=== PATIENT | male | born 1960 | race Caucasian/White ===

== ENCOUNTER 2019-03-15 16:34 | Emergency (ER) | payer MEDICAID, SELFPAY ==
[2019-03-15 16:36] VITALS: BP 156/97; PULSE 63; RESP 16; TEMP 36.3; O2SAT 96; BMI 34.4
--- NOTE | 2019-03-15 16:57 | US_ITS ---
STUDY: SCROTUM ULTRASOUND REASON FOR EXAM: Male, 58 years old. Left scrotal pain TECHNIQUE: Ultrasound evaluation of the scrotum was performed with color Doppler and static hawley-scale imaging. COMPARISON: None. FINDINGS: RIGHT TESTICLE INTRATESTICULAR: There is a normal size of the right testicle. The right testicle measures 3.9 x 2.4 x 1.8 cm. There is a homogenous echotexture. There is normal arterial and normal venous vascularity. There is no demonstrated right testicular mass or cyst. EXTRATESTICULAR: The epididymis is normal in size. The epididymis head measures 1.5 x 1.3 x 0.5 cm. There is normal vascularity of the epididymis. There is no demonstrated epididymal cystic structure. There is no demonstrated hydrocele. There is no demonstrated varicocele. There is no demonstrated extratesticular mass or cyst. LEFT TESTICLE INTRATESTICULAR: There is a normal size of the left testicle. The left testicle measures 4 x 2 x 2.2 cm. There is a homogenous echotexture. There is normal arterial and normal venous vascularity. There is no demonstrated left testicular mass or cyst. EXTRATESTICULAR: The epididymis is normal in size. The epididymis head measures 1.1 x 0.8 x 0.5 cm. There is normal vascularity of the epididymis. There is no demonstrated epididymal cystic structure. There is no demonstrated hydrocele. Small Valsalva induced varicocele demonstrated.. There is also herniation of adipose tissue within the left scrotum upon both a Valsalva maneuver and coughing. There is no demonstrated extratesticular mass or cyst. US/Testicular with Arterial Flow IMPRESSION: No evidence for testicular mass or torsion. Small Valsalva induced varicocele in the left scrotum in association with apparent herniation of adipose tissue. Clinical correlation recommended Electronically Signed: Carlos Agee MD at 18:08 EDT , Service support ,
--- NOTE | 2019-03-15 16:57 | CT_ITS ---
STUDY: CT ABDOMEN AND PELVIS WITHOUT CONTRAST REASON FOR EXAM: Male, 58 years old. Chronic left scrotal pain RADIATION DOSAGE (If Supplied By Facility): CTDIvol = ( 14.135 ) mGy, DLP = ( 1072.57 ) mGycm TECHNIQUE: Transaxial images were obtained from the dome of the diaphragm to the symphysis pubis without oral contrast, and without intravenous contrast. Sagittal and coronal images were reconstructed. Individualized dose optimization techniques were used for this CT. COMPARISON: None. FINDINGS: The visualized lung bases are unremarkable. Heart is enlarged and there is mild coronary artery calcification. Normal liver. Status post cholecystectomy.. Normal spleen. Normal pancreas. Normal bilateral adrenal glands. Normal right kidney. Normal left kidney. Normal visualized stomach. Normal small intestine. Normal colon. Postop change status post appendectomy. Minor atherosclerotic changes of the aorta without evidence for aneurysm.. Normal inferior vena cava. Normal retroperitoneum. Normal urinary bladder. Small bilateral fat-containing inguinal hernias. Lumbar spine demonstrates mild spondylosis. CT/Abdomen/Pelvis without Cont IMPRESSION: No acute abnormalities status post cholecystectomy and appendectomy. No evidence for hydronephrosis or ureteral calculus Electronically Signed: Carlos Agee MD at 17:35 EDT , Service support ,
--- NOTE | 2019-03-15 17:02 | ED.DCSUM_ITS ---
- ER Visit Summary Date of Service: 03/15/19 Chief Complaint: Left testicular pain History of Present Illness: The patient is a 58 M presenting with left testicular pain. He states that this has been ongoing for the past 2 to 3 months. He states that he noticed his left testicle is higher riding than norm al. This has been ongoing for the past 2 to 3 months. He has had intermittent pain. He denies injury. Denies rash, discharge, concern for STDs. Denies other complaints. Physical Examination: Vitals are stable. Patient is afebrile. Alert no acute distress. HEENT exam is unremarkable. Neck is supple. Lungs are clear and equal bilaterally. Heart is regular rate and rhythm. Abdomen is soft nontender nondistended. No guarding or rebound : Mild left testicular tenderness, no rash, no discharge Extremities are unremarkable. Skin is warm and dry. Remainder of exam is unremarkable. Emergency Department Course and Treatment: CT abdomen pelvis shows no acute abnormalities status post cholecystectomy and appendectomy. No evidence for hydronephrosis or ureteral calculus. Testicular ultrasound shows no evidence for testicular mass or torsion. Small Valsalva induced varicocele in the left scrotum in association with apparent herniation of adipose tissue. Discussed with Dr. Zimmer. Patient will follow-up in the office. Advised to return to ED for worsening complaints. Disposition: Discharge home Impression: Left testicular pain, varicocele This note was generated with [employer] dictation software. It may contain incorrect words, spelling, and punctuation that were not noted in review of the chart prior to signing ED Disposition - Plan for ED Patient: Referrals: Kobi Alvarado MD [Primary Care Provider] -
[2019-03-15 18:58] VITALS: BP 154/97; PULSE 65; RESP 18; O2SAT 95
--- NOTE | 2019-03-15 19:21 | ED.DEP ---
ED Disposition - Plan for ED Patient: Instructions: Varicocele Referrals: Kobi Alvarado MD [Primary Care Provider] - Rob Zimmer MD [STAFF PHYSICIAN] -
== END 2019-03-15 19:32 | disposition home or self-care (01) ==
LOC: ED 17:39
PROVIDERS: Emergency Provider Emergency Medicine; Family Provider Family Medicine; PCP Family Medicine
DX: I86.1 Scrotal varices (principal); Z79.899 Other long term (current) drug therapy; Z90.49 Acquired absence of other specified parts of digestive tract
CPT/HCPCS: 74176; 76870; 93976; 99282

== ENCOUNTER 2022-06-01 03:55 | Emergency (ER) | payer MEDICAID, SELFPAY ==
[2022-06-01 03:56] VITALS: PULSE 65; RESP 22; TEMP 37.1; O2SAT 94; BMI 25.4
--- NOTE | 2022-06-01 04:21 | EDS_ITS ---
HPI History of Present Illness Chief Complaint: Cold Sx Informant: patient Narrative Narrative: Patient is a 61-year-old male with history of asthma, hypertension, hyperlipidemia and arthritis presenting with flulike symptoms as well as shortness of breath. Patient states he started coming down with the symptoms about 4 days ago. At first they were mild but 2 days ago he woke up with a fever of 101.5. The symptoms have progressed since then and he is not really been able to do anything because his been feeling so bad. He has congestion, ear pressure (left worse than right), cough productive of yellow sputum, some posttussive nausea and myalgias. He last had Tylenol around midnight (4 hours prior to arrival). He works at [employer] so could have been exposed anything. 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 Does have jose athing treatments at home. Notes whenever he gets sick he is very prone to pneumonia and bronchitis. [facility] Medical History Asthma Gout Hyperlipemia Hypertension Hypogonadism Spinal stenosis Home Medications Potassium Chloride 10 meq PO 4X/DAY 03/15/19 [History Last Taken Unknown] albuterol sulfate 90 mcg/actuation breath activated powder inhaler 2 puff inhalation Q6H PRN PRN Sob &/Or Wheezing 03/15/19 [History Last Taken Unknown] anastrozole 1 mg tablet 1 mg PO QWEEK 03/15/19 [History Last Taken Unknown] celecoxib 200 mg capsule 200 mg PO DAILY 03/15/19 [History Last Taken Unknown] doxazosin 4 mg tablet 4 mg PO QHS 03/15/19 [History Last Taken Unknown] fluticasone furoate 100 mcg-vilanterol 25 mcg/dose inhalation powder 1 ea IH DAILY 03/15/19 [History Last Taken Unknown] lisinopril 20 mg-hydrochlorothiazide 25 mg tablet 1 ea PO DAILY 03/15/19 [History Last Taken Unknown] meloxicam 15 mg tablet 15 mg PO DAILY 03/15/19 [History Last Taken Unknown] montelukast 10 mg tablet 10 mg PO QHS 03/15/19 [History Last Taken Unknown] omeprazole 20 mg tablet,delayed release 20 mg PO DAILY 03/15/19 [History Last Taken Unknown] probenecid 500 mg tablet 500 mg PO BID 03/15/19 [History Last Taken Unknown] simvastatin 40 mg tablet 40 mg PO QHS 03/15/19 [History Last Taken Unknown] trazodone 150 mg tablet 150 mg PO QHS 03/15/19 [History Last Taken Unknown] benzonatate 200 mg capsule 200 mg PO TID PRN cough #20 caps 06/01/22 [Rx Last Taken Unknown] Allergy/AdvReac Type Severity Reaction Status Date / Time tetracycline Allergy Swelling Verified 06/01/22 04:35 Surgical History History of adenoidectomy History of appendectomy Hx of cholecystectomy Hx of tonsillectomy Social History Smoking Status: Former smoker ROS ROS ED Constitutional Constitutional ED: Reports chills, fever(s) and sweats Eyes Eyes: Denies change in vision ENT ENT ED: Reports ear pain, rhinorrhea and sore throat Cardiovascular Cardiovascular: Denies chest pain Respiratory/Chest Respiratory/Chest: Reports cough and dyspnea Gastrointestinal Gastrointestinal: Reports nausea; Denies abdominal pain, diarrhea or vomiting Genitourinary Genitourinary ED: Denies dysuria or hematuria Musculoskeletal Musculoskeletal: Reports arthralgias and myalgias Integumentary Denies rash Neurologic Neurologic: Reports headache(s); Denies weakness Psychiatric Psychiatric: Denies anxiety Hematologic/Lymphatic Hematologic/Lymphatic: Denies easy bleeding or easy bruising EXAM Physical Exam Const Vital Signs: 06/01/22 03:56 06/01/22 03:56 06/01/22 05:10 Temperature 98.7 F Temperature Source Temporal Pulse Rate 65 57 L Respiratory Rate 22 H 24 H Respiratory Effort Short of Breath Respiratory Pattern Tachypnea Blood Pressure Pulse Ox 94 Oxygen Delivery Method Room Air 06/01/22 05:23 Temperature Temperature Source Pulse Rate 87 Respiratory Rate 19 H Respiratory Effort Respiratory Pattern Blood Pressure 138/97 H Pulse Ox 97 Oxygen Delivery Method Positive well nourished and well developed General Appearance ED: well developed and NAD HEENT Reports TM's clear and moist mucous membranes HEENT Narrative: Oral pharyngeal erythema present, normal tonsils with no enlargement or exudate Tympanic Membrane ED: Yes TM's clear Eyes PERRL and EOMs intact bilaterally Neck supple and no JVD Chest Wall inspection of chest normal and palpation of chest normal Resp normal respiratory effort Resp Narrative: Scattered wheezes in the left lobe, normal right lung sounds Auscultation: Negative for diminished lung sounds Cardio regular rate and regular rhythm GI normal to inspection, nondistended, normoactive bowel sounds and non-tender Back/Spine no CVA tenderness Extremity normal to inspection General Extremety ED: Negative for edema or tenderness General Extremity: Negative for edema Neuro oriented x3 Neuro Narrative: No focal deficits appreciated Sensorium / Orientation: alert Motor Exam: Negative for general weakness Psych mental status grossly normal Skin no rashes or lesions noted MDM MDM MDM Narrative Medical decision making narrative: Patient evaluated for flulike symptoms. Flu/COVID test are pending. Vital signs are significant only for mild tachypnea with a respiratory rate of 22. Patient is of some scattered wheeze, slightly asymmetric breath sounds and history of reactive airway/asthma. We will give him a DuoNeb as well as check a chest x-ray especially as he is on day 4 of symptoms. Flu test is positive. Chest x-ray reviewed by myself as well as radiology does not show any acute process. He is given a dose of prednisone for burst and Tessalon Perles as well as ibuprofen. Patient will be discharged home. He is not a candidate for Tamiflu as his symptoms been present for 4 days and are not severe. We will continue his prednisone that he has at home. Has bradycardia treatments at home. Is given prescription for Tessalon Perles. Counseled return precautions. Discharged home in stable condition. Lab Data Attestation: I reviewed the patient's lab results. Radiography Diagnostic Testing: Clinical Impression(s) from Imaging Studies Chest X-Ray 06/01/22 04:34 IMPRESSION: Normal x-ray examination of the chest. Electronically Signed: Perry Andrade MD at 4:51 EST , Discharge Plan Triage Chief Complaint: Cold Sx ED Provider: Deanne James Dx/Rx/DC Orders Clinical Impression: Influenza A, Wheezing Instructions: ED Influenza (Adult) Prescriptions: New benzonatate 200 mg capsule 200 mg PO TID PRN (Reason: cough) Qty: 20 0RF No Action celecoxib 200 MG capsule 200 mg PO DAILY anastrozole 1 MG tablet 1 mg PO QWEEK meloxicam 15 MG tablet 15 mg PO DAILY simvastatin 40 MG tablet 40 mg PO QHS trazodone 150 MG tablet 150 mg PO QHS doxazosin 4 MG tablet 4 mg PO QHS lisinopril-hydrochlorothiazide 1 EACH tablet 1 ea PO DAILY montelukast 10 MG tablet 10 mg PO QHS probenecid 500 MG tablet 500 mg PO BID omeprazole 20 MG tablet,delayed release (DR/EC) 20 mg PO DAILY fluticasone furoate-vilanterol 1 EACH blister with device 1 ea IH DAILY albuterol sulfate 90 MCG aerosol powdr breath activated 2 puff inhalation Q6H PRN PRN (Reason: Sob &/Or Wheezing) Potassium Chloride 10 MEQ Capsule.Er 10 meq PO 4X/DAY Stand Alone Forms: ED Work / School Excuse Primary Care Provider: Kobi Alvarado Referrals: Kobi Alvarado MD [Primary Care Provider] - Activity Restrictions/Additional Instructions: Continue to alternate ibuprofen and Tylenol. Stop taking your celecoxib while actively sick and taking ibuprofen. Continue your prednisone taper. You are given extra dose tonight. Use your breathing treatments every 4-6 hours. Return with any worsening symptoms. No signs of pneumonia or indication for antibiotics at this time. Disposition Disposition: Home, Self Care Discharge Date/Time: 06/01/22 05:24
[2022-06-01] MEDS: Ibuprofen 600 MG Tablet PO (04:29)
--- NOTE | 2022-06-01 04:34 | RAD_ITS ---
STUDY: X-RAY CHEST REASON FOR EXAM: Male, 61 years old. cough TECHNIQUE: Single AP portable view of the chest. COMPARISON: None. FINDINGS: The lungs are clear and expanded. There is no demonstrated pleural abnormality. Normal size heart. Normal mediastinum and marycruz. Normal visualized pulmonary arteries. Normal visualized aortic arch and descending thoracic aorta. Normal visualized thoracic spine. Normal visualized ribs, clavicles, and shoulders. There is no demonstrated abnormality of the visualized soft tissue structures of the upper abdomen. RAD/Chest PA and Lateral IMPRESSION: Normal x-ray examination of the chest. Electronically Signed: Perry Andrade MD at 4:51 EST ,
[2022-06-01] MEDS: Ipratropium/Albuterol Sulfate 3 ML AMPUL.NEB INHALATION (05:08)
[2022-06-01 05:10] VITALS: PULSE 57; RESP 24
[2022-06-01] MEDS: predniSONE 20 MG Tablet 60 MG PO (05:20)
[2022-06-01] MEDS: Benzonatate 100 MG Capsule 200 MG PO (05:21)
[2022-06-01 05:23] VITALS: BP 138/97; PULSE 87; RESP 19; O2SAT 97
== END 2022-06-01 05:24 | disposition home or self-care (01) ==
PROVIDERS: Emergency Provider Emergency Medicine; PCP Family Medicine; Visit Provider Emergency Medicine
DX: J10.1 Influenza due to other identified influenza virus with other respiratory manifestations (principal); M19.032 Primary osteoarthritis, left wrist; I10 Essential (primary) hypertension; E78.5 Hyperlipidemia, unspecified; R06.2 Wheezing; M79.10 Myalgia, unspecified site; M10.9 Gout, unspecified; Z87.891 Personal history of nicotine dependence
CPT/HCPCS: 71046; 87428; 94640; 99283

== ENCOUNTER 2022-06-04 10:38 | Emergency (ER) | payer MEDICAID, SELFPAY ==
[2022-06-04 10:39] VITALS: BP 160/102; PULSE 54; RESP 17; TEMP 36.8; O2SAT 97; BMI 25.0
--- NOTE | 2022-06-04 10:52 | EDS_ITS ---
HPI History of Present Illness Chief Complaint: General Illness Narrative Narrative: Patient presents with lightheadedness and a cough as well as feeling weak for the past 4 to 5 days. He was recently diagnosed with influenza a. He has no further fevers, he has had some diarrhea, about 4-5 episodes of watery stool, he has decreased p.o. intake although he does think he drinks enough water. He has no chest pain. He has a cough and sometimes it is productive with yellowish sputum. [facility] Medical History Asthma Gout Hyperlipemia Hypertension Hypogonadism Spinal stenosis Home Medications Potassium Chloride 10 meq PO 4X/DAY 03/15/19 [History Last Taken Unknown] albuterol sulfate 90 mcg/actuation breath activated powder inhaler 2 puff inhalation Q6H PRN PRN Sob &/Or Wheezing 03/15/19 [History Last Taken Unknown] anastrozole 1 mg tablet 1 mg PO QWEEK 03/15/19 [History Last Taken Unknown] celecoxib 200 mg capsule 200 mg PO DAILY 03/15/19 [History Last Taken Unknown] doxazosin 4 mg tablet 4 mg PO QHS 03/15/19 [History Last Taken Unknown] fluticasone furoate 100 mcg-vilanterol 25 mcg/dose inhalation powder 1 ea IH DAILY 03/15/19 [History Last Taken Unknown] lisinopril 20 mg-hydrochlorothiazide 25 mg tablet 1 ea PO DAILY 03/15/19 [History Last Taken Unknown] meloxicam 15 mg tablet 15 mg PO DAILY 03/15/19 [History Last Taken Unknown] montelukast 10 mg tablet 10 mg PO QHS 03/15/19 [History Last Taken Unknown] omeprazole 20 mg tablet,delayed release 20 mg PO DAILY 03/15/19 [History Last Taken Unknown] probenecid 500 mg tablet 500 mg PO BID 03/15/19 [History Last Taken Unknown] simvastatin 40 mg tablet 40 mg PO QHS 03/15/19 [History Last Taken Unknown] trazodone 150 mg tablet 150 mg PO QHS 03/15/19 [History Last Taken Unknown] benzonatate 200 mg capsule 200 mg PO TID PRN cough #20 caps 06/01/22 [Rx Last Taken Unknown] Allergy/AdvReac Type Severity Reaction Status Date / Time tetracycline Allergy Swelling Verified 06/04/22 10:39 Surgical History History of adenoidectomy History of appendectomy Hx of cholecystectomy Hx of tonsillectomy Social History Smoking Status: Former smoker ROS ROS ED ROS Narrative Past medical history: Reviewed Medications: Reviewed Social history: Noncontributory Review of systems: All systems negative except as indicated General: No fever currently. Generalized weakness. He does feel somewhat lightheaded Eyes: No visual changes ENT: No upper airway congestion, normal voice Neck: No neck pain Cardiovascular: No chest pain Respiratory: Cough, congestion, at times he has wheezing but he uses his inhaler and it improves. Gastrointestinal: No abdominal pain, nausea or vomiting. He has diarrhea as in HPI Genitourinary: No dysuria Musculoskeletal: Myalgias have improved. Skin: No rash Neurological: No memory loss, confusion or any focal weakness Psych: No recent behavioral changes Hematologic: No easy bleeding or easy bruising EXAM Physical Exam Narrative Exam Narrative: Physical exam General: Well nourished, Well developed, No Acute Distress Head: Normocephalic, Atraumatic Eyes: Conjunctiva not pale ENT: Slightly dry mucous membranes Neck: Supple, Nontender, No lymphadenopathy Cardiovascular: Regular rate, Regular rhythm Respiratory: No distress, CTA bilaterally Abdomen: Soft, Nontender, Nondistended Back: Nontender, Normal Inspection. Negative for: CVA tenderness Extremities: Nontender, No edema Skin: Normal color, No rash Neurological: Alert, Normal Strength, Normal Sensation Psychological: Normal affect Const Vital Signs: 06/04/22 10:39 06/04/22 11:08 Temperature 98.2 F Temperature Source Temporal Pulse Rate 54 L Respiratory Rate 17 Respiratory Effort Normal Non-Labored Respiratory Pattern Normal Blood Pressure 160/102 H Blood Pressure Mean 121 Pulse Ox 97 Oxygen Delivery Method Room Air MDM MDM MDM Narrative Medical decision making narrative: Insert MDM Patient was seen by me in the emergency department. I considered admission but after discussion with the patient we came to a mutual agreement that the patient is stable for discharge. Interpretations: X-ray two-view interpreted by me as normal, no pneumonia Differential diagnosis include: Thought about post influenza pneumonia, dehydration, electrolyte abnormalities or decompensation of his asthma. I reviewed the following documents: Prior records from his previous visit in the ER a few days ago. The patient has the following comorbidities which impact testing and treatment: Patient has asthma, hypertension hypercholesterolemia, if he were to have a post influenza pneumonia which is quite possible his risk would be much greater of adverse events. The following systemic symptoms the patient has placed the patient at high probability of a high risk condition. Patient has lightheadedness, he feels ill and generally. We consider prescription medication however the patient decided that they will take [id number] medications, he can take Tylenol and Motrin. The patient is having an exacerbation or severe's exacerbation of: His asthma this is likely secondary to the influenza he has been using his home albuterol. Patient is also found to have hemoglobin of 18 and uremia, both of these are likely secondary to dehydration. He did improve somewhat with IV fluids. He appears well I do believe he is stable for discharge. If anything changes he is to return. Lab Data Labs: Laboratory Results - last 24 hr 06/04/22 06/04/22 11:00 11:00 WBC 10.2 RBC 6.03 Hgb 18.0 H* Hct 52.8 MCV 87.6 MCH 29.9 MCHC 34.1 RDW Std Deviation 43.8 RDW Coeff of Precious 13.7 Plt Count 192 MPV 10.0 Immature Gran % (Auto) 0.500 Neut % (Auto) 82.6 H Lymph % (Auto) 11.1 L Izard % (Auto) 5.3 Eos % (Auto) 0.3 Baso % (Auto) 0.2 Absolute Neuts (auto) 8.4 H Absolute Lymphs (auto) 1.13 Nucleated RBC % 0 Sodium 139 Potassium 4.6 Chloride 105 Carbon Dioxide 28.0 Anion Gap 6 BUN 20 H Creatinine 1.09 Estim Creat Clear Calc 65.04 Est GFR (MDRD) Af Amer 89 Est GFR (MDRD) Non-Af 73 BUN/Creatinine Ratio 18.3 Glucose 110 H Calcium 9.4 Total Bilirubin 1.70 H AST 24 ALT 41 Alkaline Phosphatase 49 Total Protein 7.4 Albumin 3.8 Globulin 3.6 Albumin/Globulin Ratio 1.1 Radiography Diagnostic Testing: Clinical Impression(s) from Imaging Studies Chest X-Ray 06/04/22 11:20 IMPRESSION: Degenerative changes, as described above. No demonstrated acute cardiopulmonary process. Electronically Signed: Kirit Olviera MD at 11:47 EST Reading Location ID and State: [facility] / [place] , Service support , Discharge Plan Triage Chief Complaint: General Illness ED Provider: Enrique Olivares Dx/Rx/DC Orders Clinical Impression: Influenza A, Wheezing, Acute dehydration Instructions: Dehydration Prescriptions: No Action celecoxib 200 MG capsule 200 mg PO DAILY anastrozole 1 MG tablet 1 mg PO QWEEK meloxicam 15 MG tablet 15 mg PO DAILY simvastatin 40 MG tablet 40 mg PO QHS trazodone 150 MG tablet 150 mg PO QHS doxazosin 4 MG tablet 4 mg PO QHS lisinopril-hydrochlorothiazide 1 EACH tablet 1 ea PO DAILY montelukast 10 MG tablet 10 mg PO QHS probenecid 500 MG tablet 500 mg PO BID omeprazole 20 MG tablet,delayed release (DR/EC) 20 mg PO DAILY fluticasone furoate-vilanterol 1 EACH blister with device 1 ea IH DAILY albuterol sulfate 90 MCG aerosol powdr breath activated 2 puff inhalation Q6H PRN PRN (Reason: Sob &/Or Wheezing) Potassium Chloride 10 MEQ Capsule.Er 10 meq PO 4X/DAY benzonatate 200 mg capsule 200 mg PO TID PRN (Reason: cough) Qty: 20 0RF Primary Care Provider: Kobi Alvarado Referrals: Kobi Alvarado MD [Primary Care Provider] - 3-5 Days Disposition Disposition: Home, Self Care
[2022-06-04] MEDS: Ketorolac 15 MG/ML Vial IV (11:07)
[2022-06-04] MEDS: 0.9% Normal Saline 1,000 ML 1000 ML IV (11:07)
[2022-06-04 11:20] LABS: ALB/GLOB Ratio 1.1 RATIO (0.9-2.4); AST(SGOT) 24 U/L (15-37); Alanine Aminotransfer ALT/SGPT 41 U/L (16-61); Albumin, Serum 3.8 g/dL (3.2-5.0); Alkaline Phosphatase 49 U/L (45-117); Anion Gap 6 (5-15); BUN 20 mg/dL (7-18); BUN/Creat Ratio 18.3 RATIO (10-20); Calcium,Total 9.4 mg/dL (8.5-10.1); Chloride 105 mmol/L (98-107); Creatinine, Serum 1.09 mg/dL (0.70-1.30); EST Glomerular Filtration Rate 73 mL/min (>60); Est Glom Filt Rate - Afr Amer 89 mL/min (>60); Estimated Creatinine Clearance 65.04 ml/min; Globulin 3.6 g/dL (2.2-4.2); Glucose 110 mg/dL (74-106); Potassium 4.6 mmol/L (3.5-5.1); Protein, Total 7.4 g/dL (6.4-8.2); Sodium Level 139 mmol/L (136-145)
--- NOTE | 2022-06-04 11:20 | RAD_ITS ---
STUDY: X-RAY CHEST REASON FOR EXAM: Male, 61 years old. cough DX WITH FLU WEDNESDAY MORNING AND C/O NOT FEELING BETTER TECHNIQUE: PA and lateral views of the chest. COMPARISON: June 01, 2022 FINDINGS: No visualized consolidation or infiltrates. The lungs are clear and expanded. There is no demonstrated pleural abnormality. Normal size heart. Normal mediastinum and marycruz. Normal visualized pulmonary arteries. There is atherosclerotic calcification of the aortic arch with tortuosity. There are diffuse degenerative changes of the visualized thoracic spine. Normal visualized ribs, clavicles, and shoulders. There is no demonstrated abnormality of the visualized soft tissue structures of the upper abdomen. RAD/Chest PA and Lateral IMPRESSION: Degenerative changes, as described above. No demonstrated acute cardiopulmonary process. Electronically Signed: Kirit Olivera MD at 11:47 EST ,
[2022-06-04 11:22] LABS: Absolute Lymphocyte Count 1.13 X10^3/uL (0.83-4.51); Absolute Neutrophil Count 8.4 X10^3/uL (2.0-7.7); Basophil# 0.02 X10^3/uL; Basophil% 0.2 % (0-1); Eosinophil# 0.03 X10^3/uL; Eosinophils% 0.3 % (0-5); Hematocrit 52.8 % (40-54); Lymphocyte # 1.13 X10^3/ul (0.83-4.51); Lymphocyte % 11.1 % (19-41); Mean Corp Hgb Conc 34.1 g/dL (32-36); Mean Corpuscular Hgb 29.9 pg (27.0-32.0); Mean Corpuscular Volume 87.6 fL (80-94); Monocyte# 0.54 X10^3/uL; Monocyte% 5.3 % (0-10); NRBC Flagged by Analyzer 0 % (0-5); Neutrophil # 8.38 X10^3/uL (2.7-7.7); Neutrophil % 82.6 % (47-70); Platelet Count 192 K/mm3 (150-450); RBC Distribution Width CV 13.7 % (11.6-14.6); RBC Distribution Width SD 43.8 fl (35.1-43.9); Red Blood Count 6.03 M/mm3 (4.6-6.2); White Blood Count 10.2 K/mm3 (4.4-11.0)
== END 2022-06-04 12:24 | disposition home or self-care (01) ==
PROVIDERS: Emergency Provider Emergency Medicine; PCP Family Medicine; Visit Provider Emergency Medicine
DX: E86.0 Dehydration (principal); J10.1 Influenza due to other identified influenza virus with other respiratory manifestations; I10 Essential (primary) hypertension; R06.2 Wheezing; E78.5 Hyperlipidemia, unspecified; R42 Dizziness and giddiness; R19.7 Diarrhea, unspecified; Z87.891 Personal history of nicotine dependence
CPT/HCPCS: 71046; 80053; 85025; 99282; J7030; A4216

== ENCOUNTER 2022-09-10 09:55 | Observation (INO) | payer MEDICAID, SELFPAY ==
[2022-09-10 09:56] VITALS: BP 155/99; PULSE 58; RESP 16; TEMP 37.4; O2SAT 99; BMI 26.4
--- NOTE | 2022-09-10 10:07 | ED.VIS.GI ---
HPI HPI - GI History of Present Illness Chief Complaint: Abd Pain Narrative Narrative: 61-year-old male past medical history of hypertension, previous appendectomy and what he thinks is cholecystectomy, presents with pain in the epigastrium to left upper quadrant since yesterday evening. Its been over 12 hours since he began having this epigastric to left sided abdominal pain. Of note, he states that he is concerned about his NSAID use that he takes for his pain. He thought maybe he had a fever last evening, but he kept taking his temperature and it was normal to low. He denies any nausea or vomiting but this morning had 2 episodes of loose stool, nonbloody and not on watery diarrhea. He states that he is having tenderness in the epigastrium to left upper quadrant of his abdomen. He denies any recent injury or heavy exertion. [facility] Medical History Asthma Gout Hyperlipemia Hypertension Hypogonadism Spinal stenosis Home Medications Potassium Chloride 10 meq PO 4X/DAY 03/15/19 [History Last Taken Unknown] albuterol sulfate 90 mcg/actuation breath activated powder inhaler 2 puff inhalation Q6H PRN PRN Sob &/Or Wheezing 03/15/19 [History Last Taken Unknown] anastrozole 1 mg tablet 1 mg PO QWEEK 03/15/19 [History Last Taken Unknown] celecoxib 200 mg capsule 200 mg PO DAILY 03/15/19 [History Last Taken Unknown] doxazosin 4 mg tablet 4 mg PO QHS 03/15/19 [History Last Taken Unknown] fluticasone furoate 100 mcg-vilanterol 25 mcg/dose inhalation powder 1 ea IH DAILY 03/15/19 [History Last Taken Unknown] lisinopril 20 mg-hydrochlorothiazide 25 mg tablet 1 ea PO DAILY 03/15/19 [History Last Taken Unknown] meloxicam 15 mg tablet 15 mg PO DAILY 03/15/19 [History Last Taken Unknown] montelukast 10 mg tablet 10 mg PO QHS 03/15/19 [History Last Taken Unknown] omeprazole 20 mg tablet,delayed release 20 mg PO DAILY 03/15/19 [History Last Taken Unknown] probenecid 500 mg tablet 500 mg PO BID 03/15/19 [History Last Taken Unknown] simvastatin 40 mg tablet 40 mg PO QHS 10/09/19 [History Last Taken Unknown] trazodone 150 mg tablet 150 mg PO QHS 03/15/19 [History Last Taken Unknown] benzonatate 200 mg capsule 200 mg PO TID PRN cough #20 caps 06/01/22 [Rx Last Taken Unknown] Allergy/AdvReac Type Severity Reaction Status Date / Time tetracycline Allergy Swelling Verified 09/10/22 10:01 Surgical History History of adenoidectomy History of appendectomy Hx of cholecystectomy Hx of tonsillectomy Social History Smoking Status: Former smoker ROS ROS ED ROS Narrative Constitutional: Subjective fever, no chills. HEENT: No sore throat. No neck pain. No loss of vision. No rhinorrhea. Cardiovascular: No chest pain. No palpitations. No pedal edema. Respiratory: No cough, no shortness of breath. Abdominal: Epigastric to left upper quadrant abdominal pain. No nausea. No vomiting. Positive loose stool/diarrhea without melena or hematochezia. Genitourinary: No dysuria. No hematuria. Musculoskeletal: No myalgias. No arthralgias. Neurologic: No headaches. No dizziness. No lightheadedness. Skin: No rash. No change in color. Psychiatric: No depression. No anxiety. EXAM Physical Exam Narrative Exam Narrative: Afebrile. Vital signs noted. HEENT: Normocephalic. Atraumatic. PERRL, EOMI. Neck soft and supple. No point tenderness or step off. Cardiovascular: Regular rate and rhythm. No murmurs, rubs, or gallops appreciated. Respiratory: No tachypnea. Lungs clear to auscultation bilaterally. Gastrointestinal: Abdomen soft, tenderness to palpation epigastrium to left upper quadrant, with normoactive to slightly hyperactive bowel sounds. No rebound or guarding. Neurological: Awake. Alert. Nonfocal, nonlateralizing. Skin: No rash. Normal color. No pallor. Musculoskeletal: No pedal edema. Full range of motion extremities. Const Vital Signs: 09/10/22 09:56 Temperature 99.3 F H Temperature Source Temporal Pulse Rate 58 L Respiratory Rate 16 Blood Pressure 155/99 H Blood Pressure Mean 117 Pulse Ox 99 Oxygen Delivery Method Room Air MDM MDM MDM Narrative Medical decision making narrative: In the differential diagnosis is diverticulitis of the transverse colon, gastric ulceration secondary to NSAID use, gastritis, pancreatitis. Pancreatitis is less likely secondary to the fact that the patient states that he quit drinking alcohol 2 years ago. Patient does have low-grade elevated temperature of 99.3 ?F currently. I do not feel that this is a pneumonia type pathology as he has pain more in the abdomen and tenderness, and he denies any cough or phlegm production. I do not feel that chest x-ray is indicated. Instead, I do feel that CT of the abdomen and pelvis with IV contrast is indicated. I will check a CBC, CMP, and lipase to help rule out pancreatitis, although he states that he thinks that he had a cholecystectomy. I reviewed the patient's laboratory work and he has a leukocytosis of 23.9, hemoglobin normal at 15.7, hematocrit 46.1. Platelet count normal at 247. In review of his electrolytes, sodium slightly low at 135 with normal potassium of 4.2, BUN of 15 with creatinine normal at 1.14. AST and ALT are normal at 16 and 55 respectively. Glucose appropriately elevated at 119 with a normal anion gap of 6. I reviewed his CT imaging, and I reviewed the radiology report which confirms mid to distal transverse colitis. Patient states that he had bilious diarrhea here in the emergency department. Given his leukocytosis and low-grade fever, I will add a lactic acid and blood cultures prior to administering Levaquin and Flagyl intravenously. I do feel that he requires admission at this time for his colitis. He was given morphine for analgesia. I discussed patient with Dr. Polanco who requested that C. difficile testing be added. Patient will be admitted to the general medical floor in stable condition. History & Record Review Discussion w/independent historian: Patient and Family Additional record(s) reviewed:: Prior ED visit Lab Data Attestation: I reviewed the patient's lab results. Labs: Laboratory Results - last 24 hr 09/10/22 09/10/22 09/10/22 10:15 10:20 10:20 WBC 23.9 H RBC 5.31 Hgb 15.7 Hct 46.1 MCV 86.8 MCH 29.6 MCHC 34.1 RDW Std Deviation 40.5 RDW Coeff of Precious 12.8 Plt Count 247 MPV 10.1 Immature Gran % (Auto) 0.500 Neut % (Auto) 81.5 H Lymph % (Auto) 6.7 L [place] % (Auto) 9.0 Eos % (Auto) 1.9 Baso % (Auto) 0.4 Absolute Neuts (auto) 19.5 H Absolute Lymphs (auto) 1.61 Nucleated RBC % 0 Differential Comment SCANNED Diff Path Review May foll Sodium 135 L Potassium 4.2 Chloride 104 Carbon Dioxide 25.0 Anion Gap 6 BUN 15 Creatinine 1.14 Estim Creat Clear Calc 62.18 Est GFR (MDRD) Af Amer 84 Est GFR (MDRD) Non-Af 69 BUN/Creatinine Ratio 13.2 Glucose 119 H Calcium 9.1 Total Bilirubin 1.80 H AST 16 ALT 55 Alkaline Phosphatase 91 Total Protein 7.0 Albumin 3.8 Globulin 3.2 Albumin/Globulin Ratio 1.2 Lipase 130 Urine Color Yellow Urine Clarity Clear Urine pH 6.0 Ur Specific [place] 1.010 Urine Protein 15 H Urine Glucose (UA) Normal Urine Ketones Negative Urine Occult Blood 10 H Urine Nitrite Negative Urine Bilirubin 1 H Urine Urobilinogen Normal Ur Leukocyte Esterase 25 H Urine RBC 0-5 SEEN Urine WBC 0 SEEN Ur Squamous Epith Cells 0-5 SEEN Urine Bacteria 1+ Urine Mucus 0 SEEN Radiography Diagnostic Testing: Clinical Impression(s) from Imaging Studies Abdomen/Pelvis CT 09/10/22 11:03 IMPRESSION: Findings suggestive of a colitis involving the mid and distal portions of the transverse colon. Fatty infiltration of the liver. Electronically Signed: Antony Jiménez MD at 11:40 EDT , Discharge Plan Dx/Rx/DC Orders Clinical Impression: Colitis, Leukocytosis, Diarrhea Disposition Disposition: Acute Care Hospital [facility]
[2022-09-10 10:20] LABS: Mucous, Urine 0 SEEN /hpf (<or=2+); White Blood Cells 0 SEEN /hpf (0-5)
[2022-09-10 10:22] LABS: Color, Urine Yellow (Yellow); Glucose, Dipstick Normal (Normal); Ketone-Dipstick Negative (Negative); Leukocyte Esterase-Dipstick 25 /ul (Negative); Nitrite-Dipstick Negative (Negative); Occult Blood-Urine 10 /ul (Negative); Protein-Dipstick 15 mg/dl (Negative); Urine Clarity Clear (Clear); Urine Urobilinogen Normal (Normal)
[2022-09-10 10:23] LABS: Urine Bilirubin Dipstick 1 mg/dL (Negative)
[2022-09-10 10:29] LABS: Absolute Lymphocyte Count 1.61 X10^3/uL (0.83-4.51); Absolute Neutrophil Count 19.5 X10^3/uL (2.0-7.7); Basophil% 0.4 % (0-1); Eosinophil# 0.46 X10^3/uL; Eosinophils% 1.9 % (0-5); Hematocrit 46.1 % (40-54); Hemoglobin 15.7 g/dL (13.0-16.5); Lymphocyte # 1.61 X10^3/ul (0.83-4.51); Lymphocyte % 6.7 % (19-41); Mean Corp Hgb Conc 34.1 g/dL (32-36); Mean Corpuscular Hgb 29.6 pg (27.0-32.0); Mean Corpuscular Volume 86.8 fL (80-94); Mean Platelet Vol. 10.1 fl (6.2-12.0); Monocyte# 2.16 X10^3/uL; NRBC Flagged by Analyzer 0 % (0-5); Neutrophil # 19.46 X10^3/uL (2.7-7.7); Neutrophil % 81.5 % (47-70); POSITIVE DIFFERENTIAL YES; Platelet Count 247 K/mm3 (150-450); RBC Distribution Width CV 12.8 % (11.6-14.6); RBC Distribution Width SD 40.5 fl (35.1-43.9); Red Blood Count 5.31 M/mm3 (4.6-6.2); White Blood Count 23.9 K/mm3 (4.4-11.0)
[2022-09-10 10:30] LABS: Differential Indicated SCAN CRITERIA MET
[2022-09-10 10:31] LABS: Bacteria 1+ /hpf (None Seen); Red Blood Cells-Urine 0-5 SEEN /hpf (0-5); Squamous Epithelial Cells - UA 0-5 SEEN /hpf (0-5)
[2022-09-10] MEDS: 0.9% Normal Saline 1,000 ML 1000 ML IV (10:40)
[2022-09-10 10:51] LABS: ALB/GLOB Ratio 1.2 RATIO (0.9-2.4); AST(SGOT) 16 U/L (15-37); Alanine Aminotransfer ALT/SGPT 55 U/L (16-61); Albumin, Serum 3.8 g/dL (3.2-5.0); Alkaline Phosphatase 91 U/L (45-117); Anion Gap 6 (5-15); BUN 15 mg/dL (7-18); BUN/Creat Ratio 13.2 RATIO (10-20); Calcium,Total 9.1 mg/dL (8.5-10.1); Chloride 104 mmol/L (98-107); Creatinine, Serum 1.14 mg/dL (0.70-1.30); EST Glomerular Filtration Rate 69 mL/min (>60); Est Glom Filt Rate - Afr Amer 84 mL/min (>60); Estimated Creatinine Clearance 62.18 ml/min; Globulin 3.2 g/dL (2.2-4.2); Glucose 119 mg/dL (74-106); Lipase 130 U/L (73-393); Potassium 4.2 mmol/L (3.5-5.1); Sodium Level 135 mmol/L (136-145)
--- NOTE | 2022-09-10 11:03 | CT_ITS ---
STUDY: CT ABDOMEN AND PELVIS WITH CONTRAST REASON FOR EXAM: Male, 61 years old. luq abdominal pain RADIATION DOSAGE (If Supplied By Facility): CTDIvol = ( 13.84 ) mGy, DLP = ( 898.55 ) mGycm TECHNIQUE: Transaxial images were obtained from the dome of the diaphragm to the symphysis pubis without oral contrast. IV 100mL Isovue-300 was administered. Sagittal and coronal images were reconstructed. Individualized dose optimization techniques were used for this CT. COMPARISON: Comparison is made with prior study March 15, 2019. FINDINGS: The visualized lung bases are unremarkable. Coronary artery calcification. There is decreased attenuation of the liver consistent with steatosis. There are surgical clips in the gallbladder fossa consistent with a prior cholecystectomy. Normal spleen. Normal pancreas. Normal bilateral adrenal glands. Normal right kidney. Normal left kidney. Normal visualized stomach. Normal small intestine. There is thickening of the wall of the mid transverse colon with increased markings in the surrounding peritoneal fat. Diverticula are seen at that level. This is suggestive of a diverticulitis involving the mid and distal portions of the transverse colon. Sigmoid diverticulosis. The appendix is visualized and appears normal. There is scattered atherosclerotic calcification of the abdominal aorta, without a demonstrated aneurysm. Normal inferior vena cava. Normal retroperitoneum. Normal urinary bladder. There are prostatic calcifications. Small left inguinal hernia containing fat. There are mild degenerative changes of the visualized lumbar spine. Stable 1.7 cm rounded sclerotic density in the posterior aspect of the right iliac bone at the level of the sacroiliac joint. This most likely represents a bone island. CT/Abdomen/Pelvis W IV Cont ONLY IMPRESSION: Findings suggestive of a colitis involving the mid and distal portions of the transverse colon. Fatty infiltration of the liver. Electronically Signed: Antony Jiménez MD at 11:40 EDT ,
[2022-09-10 11:07] LABS: Differential Comment SCANNED
[2022-09-10] MEDS: Morphine 4 MG/ML Syringe IV ×2 (12:06→13:17)
[2022-09-10] MEDS: levoFLOXacin IV 750 MG/150 ML BAG 100 MG IV (12:14)
[2022-09-10] MEDS: metroNIDAZOLE 500 MG/100 ML BAG 100 MG IV ×2 (12:19→22:41)
[2022-09-10 12:22] VITALS: BP 164/104; PULSE 57; RESP 14; TEMP 37.2; O2SAT 97
--- NOTE | 2022-09-10 12:55 | HP.PCM.HOS_ITS ---
HPI - General General Date of Admission: 09/10/22 Date of Service: 09/10/22 Chief Complaint: Abdominal pain pain HPI Narrative MARGY OSPINA, is a 61 M who presents with abdominal pain which started a day prior to his presentation. Pain was located in the mid abdomen. In addition to the abdominal pain patient did experience loose bowel movements. He apparently had 2 bouts of diarrhea on the registered nurse hh case manager of his presentation. Work-up in the ED did reveal leukocytosis. CT of the abdomen did show colitis involving the mid and distal portions of the transverse colon.. Started on broad-spectrum antibiotic therapy and admitted to regular nursing floor for further management [facility] Medical History Asthma Gout Hyperlipemia Hypertension Hypogonadism Spinal stenosis Home Medications Potassium Chloride 10 meq PO 4X/DAY 03/15/19 [History Last Taken Unknown] albuterol sulfate 90 mcg/actuation breath activated powder inhaler 2 puff inhalation Q6H PRN PRN Sob &/Or Wheezing 03/15/19 [History Last Taken Unknown] anastrozole 1 mg tablet 1 mg PO QWEEK 03/15/19 [History Last Taken Unknown] celecoxib 200 mg capsule 200 mg PO DAILY 03/15/19 [History Last Taken Unknown] doxazosin 4 mg tablet 4 mg PO QHS 03/15/19 [History Last Taken Unknown] fluticasone furoate 100 mcg-vilanterol 25 mcg/dose inhalation powder 1 ea IH DAILY 03/15/19 [History Last Taken Unknown] lisinopril 20 mg-hydrochlorothiazide 25 mg tablet 1 ea PO DAILY 03/15/19 [History Last Taken Unknown] meloxicam 15 mg tablet 15 mg PO DAILY 03/15/19 [History Last Taken Unknown] montelukast 10 mg tablet 10 mg PO QHS 03/15/19 [History Last Taken Unknown] omeprazole 20 mg tablet,delayed release 20 mg PO DAILY 03/15/19 [History Last Taken Unknown] probenecid 500 mg tablet 500 mg PO BID 03/15/19 [History Last Taken Unknown] simvastatin 40 mg tablet 40 mg PO QHS 03/15/19 [History Last Taken Unknown] trazodone 150 mg tablet 150 mg PO QHS 03/15/19 [History Last Taken Unknown] benzonatate 200 mg capsule 200 mg PO TID PRN cough #20 caps 06/01/22 [Rx Last Taken Unknown] Allergy/AdvReac Type Severity Reaction Status Date / Time tetracycline Allergy Swelling Verified 09/10/22 10:01 no significant family history Surgical History History of adenoidectomy History of appendectomy Hx of cholecystectomy Hx of tonsillectomy Social History Smoking Status: Former smoker ROS ROS Narrative GENERAL: denies fever, chills, night sweats, weight loss, anorexia HEENT: denies headache, sinus congestion, or drainage, dysphagia RESPIRATORY: denies cough, sputum production, shortness of breath, dyspnea on exertion CARDIAC: denies chest pain, palpitations, orthopnea, PND GASTROINTESTINAL: Abdominal pain and diarrhea GENITOURINARY: denies dysuria, urgency, frequency, heamaturia EXTREMITY: denies swelling MUSCULOSKELETAL: denies current joint pain or tenderness NEUROLOGIC: denies focal numbness, weakness, tingling HEMATOLOGIC: denies easy bruising and/or hemorrhage INTEGUMENT: denies rashes PSYCHIATRIC: denies suicidal or homicidal ideation Vital Signs Vital Signs Vital Signs: 09/10/22 09:56 09/10/22 12:22 Temperature 99.3 F H 98.9 F Temperature Source Temporal Temporal Pulse Rate 58 L 57 L Respiratory Rate 16 14 Blood Pressure 155/99 H 164/104 H Blood Pressure Mean 117 124 Pulse Ox 99 97 Oxygen Delivery Method Room Air Room Air Weight Weight: 74.389 kg Body Mass Index (BMI) 26.4 Physical Exam Narrative GENERAL: cooperative HEENT: Atraumatic; normocephalic EYES; Anicteric, Normal Conjunctiva NECK; supple, normal thyroid, RESPIRATORY: Diminished to auscultation CARDIOVASCULAR: Regular S1 S2, GI: soft, normoactive bowel sounds, periumbilical tenderness : No Renal angle tenderness; EXTREMITIES: No edema, no clubbing, MUSCULOSKELETAL: no muscle wasting NEURO: Awake; no lateralizing signs. SKIN: No Rash PSYCH; Flat affect Results Lab / Micro Data Result Diagrams: 09/10/22 10:20 09/10/22 10:20 Labs: Laboratory Results - last 24 hr 09/10/22 10:15: Urine Color Yellow, Urine Clarity Clear, Urine pH 6.0, Ur Specific [place] 1.010, Urine Protein 15 H, Urine Glucose (UA) Normal, Urine Ketones Negative, Urine Occult Blood 10 H, Urine Nitrite Negative, Urine Bilirubin 1 H, Urine Urobilinogen Normal, Ur Leukocyte Esterase 25 H, Urine RBC 0-5 SEEN, Urine WBC 0 SEEN, Ur Squamous Epith Cells 0-5 SEEN, Urine Bacteria 1+, Urine Mucus 0 SEEN 09/10/22 10:20: WBC 23.9 H, RBC 5.31, Hgb 15.7, Hct 46.1, MCV 86.8, MCH 29.6, MCHC 34.1, RDW Std Deviation 40.5, RDW Coeff of Precious 12.8, Plt Count 247, MPV 10.1, Immature Gran % (Auto) 0.500, Neut % (Auto) 81.5 H, Lymph % (Auto) 6.7 L, [place] % (Auto) 9.0, Eos % (Auto) 1.9, Baso % (Auto) 0.4, Absolute Neuts (auto) 19.5 H, Absolute Lymphs (auto) 1.61, Nucleated RBC % 0, Differential Comment SCANNED, Diff Path Review October09/10/22 10:20: Sodium 135 L, Potassium 4.2, Chloride 104, Carbon Dioxide 25.0, Anion Gap 6, BUN 15, Creatinine 1.14, Estim Creat Clear Calc 62.18, Est GFR (MDR D) Af Amer 84, Est GFR (MDRD) Non-Af 69, BUN/Creatinine Ratio 13.2, Glucose 119 H, Calcium 9.1, Total Bilirubin 1.80 H, AST 16, ALT 55, Alkaline Phosphatase 91, Total Protein 7.0, Albumin 3.8, Globulin 3.2, Albumin/Globulin Ratio 1.2, Lipase 130 Radiology Impression Abdomen/Pelvis CT 09/10/22 11:03 IMPRESSION: Findings suggestive of a colitis involving the mid and distal portions of the transverse colon. Fatty infiltration of the liver. Electronically Signed: Antony Jiémnez MD at 11:40 EDT , Assessment & Plan Assessment/Plan (1) Colitis: PLAN: Plan Patient is a 61-year-old gentleman presented with abdominal pain and diarrhea im aging studies demonstrated colitis involving the mid and distal portions of the transverse colon 1. Acute colitis ? Ischemic versus infectious. Patient has been admitted to regular nursing floor as part of his management stool for C. difficile as well as enteric pathogen panel sent. Patient started on IV fluid, antibiotic therapy with Rocephin and metronidazole. Patient also started on pain meds for pain control in addition to antinausea medication 2. Leukocytosis ? Secondary to above treatment as discussed above. Follow-up being monitored with daily CBC with differential 3. Hypertension - Blood pressure controlled, home medications continued with dose adjustment as needed 4. Hypogonadism ? Patient is on anastrozole 5. GERD ? Patient is on PPI continue 6. Nonalcoholic fatty liver disease ? Monitoring with LFTs 7. Dyslipidemia -Patient is on statin therapy, continued at home dose 8. COPD ? Aerosol treatments as needed 9. DVT prophylaxis - On enoxaparin Time spent in the patient's overall evaluation,decision-making process, review of diagnostic data, adjustment of management, discussion with other providers, nursing nursing and ancillary staff involved in patient's care documentation, 77 Minutes Charges/Coding Visit Charges Inpatient E&M: 46859 Init Hosp L3
[2022-09-10 13:01] LABS: Lactic Acid 0.7 mmol/L (0.4-1.9)
[2022-09-10 13:59] VITALS: BMI 26.0
[2022-09-10 14:44] VITALS: BP 151/104; PULSE 54; RESP 18; TEMP 37.2; O2SAT 99
[2022-09-10] MEDS: KCL 20MEQ in D5.45NS 20 MEQ/1,000 ML IV.SOLN. 150 MEQ IV ×2 (15:18→22:51)
[2022-09-10] MEDS: Morphine 2 MG/ML Syringe IV ×2 (15:18→18:19)
[2022-09-10] MEDS: 0.9% Saline Lock 10 ML Syringe IV (15:23)
[2022-09-10] MEDS: Ceftriaxone 1 GM/50 ML BAG IV (15:33)
[2022-09-10] MEDS: Enoxaparin 40 MG/0.4 ML Syringe SC (15:33)
[2022-09-10] MEDS: Pantoprazole Sodium 40 MG Tablet PO (18:18)
[2022-09-10] MEDS: Acetaminophen 500 MG Tablet 1000 MG PO (22:42)
[2022-09-10 22:43] VITALS: BP 164/104; PULSE 45; RESP 18; TEMP 36.9; O2SAT 100
[2022-09-10 23:37] VITALS: BMI 25.9
[2022-09-11] MEDS: tiZANidine HCl 2 MG Tablet 4 MG PO (00:39)
[2022-09-11] MEDS: traZODone 100 MG Tablet 150 MG PO (00:39)
[2022-09-11 04:52] VITALS: BP 144/74; PULSE 52; RESP 18; TEMP 36.9; O2SAT 99
[2022-09-11] MEDS: Gabapentin 600 MG Tablet PO (05:21)
[2022-09-11] MEDS: Acetaminophen 500 MG Tablet 1000 MG PO (05:21)
[2022-09-11] MEDS: KCL 20MEQ in D5.45NS 20 MEQ/1,000 ML IV.SOLN. 150 MEQ IV (05:22)
[2022-09-11] MEDS: metroNIDAZOLE 500 MG/100 ML BAG 100 MG IV (05:22)
[2022-09-11 06:33] LABS: Absolute Lymphocyte Count 1.58 X10^3/uL (0.83-4.51); Absolute Neutrophil Count 10.1 X10^3/uL (2.0-7.7); Basophil# 0.03 X10^3/uL; Basophil% 0.2 % (0-1); Eosinophil# 0.49 X10^3/uL; Eosinophils% 3.7 % (0-5); Hematocrit 41.3 % (40-54); Hemoglobin 14.1 g/dL (13.0-16.5); Lymphocyte # 1.58 X10^3/ul (0.83-4.51); Lymphocyte % 11.8 % (19-41); Mean Corp Hgb Conc 34.1 g/dL (32-36); Mean Corpuscular Hgb 29.8 pg (27.0-32.0); Mean Corpuscular Volume 87.3 fL (80-94); Monocyte# 1.14 X10^3/uL; Monocyte% 8.5 % (0-10); NRBC Flagged by Analyzer 0 % (0-5); Neutrophil # 10.09 X10^3/uL (2.7-7.7); Neutrophil % 75.5 % (47-70); Platelet Count 203 K/mm3 (150-450); RBC Distribution Width CV 12.8 % (11.6-14.6); RBC Distribution Width SD 41.1 fl (35.1-43.9); Red Blood Count 4.73 M/mm3 (4.6-6.2); White Blood Count 13.4 K/mm3 (4.4-11.0)
[2022-09-11 06:56] LABS: Anion Gap 7 (5-15); BUN 10 mg/dL (7-18); BUN/Creat Ratio 10.1 RATIO (10-20); Calcium,Total 8.8 mg/dL (8.5-10.1); Chloride 106 mmol/L (98-107); Creatinine, Serum 0.99 mg/dL (0.70-1.30); EST Glomerular Filtration Rate 81 mL/min (>60); Est Glom Filt Rate - Afr Amer 99 mL/min (>60); Glucose 103 mg/dL (74-106); Magnesium 1.9 mg/dL (1.6-2.6); Potassium 3.6 mmol/L (3.5-5.1); Sodium Level 137 mmol/L (136-145)
--- NOTE | 2022-09-11 07:18 | PCM.PN.HOSP ---
Reason for Visit Reason for Visit: Diagnoses Noninfective gastroenteritis and colitis, unspecified (09/10/22) Subjective Subjective Patient is a 61-year-old gentleman presented with abdominal pain and diarrhea imaging studies demonstrated colitis involving the mid and distal portions of the transverse colon. Significant improvement in patient's symptoms plan is for patient to be assessed for discharge Objective Data Objective Data Vital Signs: Vital Signs Temp Pulse Resp BP Pulse Ox O2 Del Method 98.5 F 52 L 18 144/74 H 99 Room Air 09/11/22 04:52 09/11/22 04:52 09/11/22 04:52 09/11/22 04:52 09/11/22 04:52 09/11/22 04:52 Oxygen Delivery Method Room Air Weight: 73.3 kg Body Mass Index (BMI) 25.9 Intake & Output: Intake and Output for Last 24 Hours 09/09/22 09/10/22 09/11/22 23:59 23:59 23:59 Intake Total 2395 / 2395 1777.5 / 1777.5 Output Total 300 / 300 Balance 2095 / 2095 1777.5 / 1777.5 Lab / Micro Data Result Diagrams: 09/11/22 04:43 09/11/22 04:43 Labs: Laboratory Results - last 24 hr 09/10/22 10:15: Urine Color Yellow, Urine Clarity Clear, Urine pH 6.0, Ur Specific [place] 1.010, Urine Protein 15 H, Urine Glucose (UA) Normal, Urine Ketones Negative, Urine Occult Blood 10 H, Urine Nitrite Negative, Urine Bilirubin 1 H, Urine Urobilinogen Normal, Ur Leukocyte Esterase 25 H, Urine RBC 0-5 SEEN, Urine WBC 0 SEEN, Ur Squamous Epith Cells 0-5 SEEN, Urine Bacteria 1+, Urine Mucus 0 SEEN 09/10/22 10:20: WBC 23.9 H, RBC 5.31, Hgb 15.7, Hct 46.1, MCV 86.8, MCH 29.6, MCHC 34.1, RDW Std Deviation 40.5, RDW Coeff of Precious 12.8, Plt Count 247, MPV 10.1, Immature Gran % (Auto) 0.500, Neut % (Auto) 81.5 H, Lymph % (Auto) 6.7 L, [place] % (Auto) 9.0, Eos % (Auto) 1.9, Baso % (Auto) 0.4, Absolute Neuts (auto) 19.5 H, Absolute Lymphs (auto) 1.61, Nucleated RBC % 0, Differential Comment SCANNED, Diff Path Review October09/10/22 10:20: Sodium 135 L, Potassium 4.2, Chloride 104, Carbon Dioxide 25.0, Anion Gap 6, BUN 15, Creatinine 1.14, Estim Creat Clear Calc 62.18, Est GFR (MDRD) Af Amer 84, Est GFR (MDRD) Non-Af 69, BUN/Creatinine Ratio 13.2, Glucose 119 H, Calcium 9.1, Total Bilirubin 1.80 H, AST 16, ALT 55, Alkaline Phosphatase 91, Total Protein 7.0, Albumin 3.8, Globulin 3.2, Albumin/Globulin Ratio 1.2, Lipase 130 09/10/22 12:11: Lactic Acid 0.7 09/11/22 04:43: WBC 13.4 H, RBC 4.73, Hgb 14.1, Hct 41.3, MCV 87.3, MCH 29.8, MCHC 34.1, RDW Std Deviation 41.1, RDW Coeff of Precious 12.8, Plt Count 203, MPV 11.0, Immature Gran % (Auto) 0.300, Neut % (Auto) 75.5 H, Lymph % (Auto) 11.8 L, [place] % (Auto) 8.5, Eos % (Auto) 3.7, Baso % (Auto) 0.2, Absolute Neuts (auto) 10.1 H, Absolute Lymphs (auto) 1.58, Nucleated RBC % 0 09/11/22 04:43: Sodium 137, Potassium 3.6, Chloride 106, Carbon Dioxide 24.0, Anion Gap 7, BUN 10, Creatinine 0.99, Estim Creat Clear Calc 71.60, Est GFR (MDRD) Af Amer 99, Est GFR (MDRD) Non-Af 81, BUN/Creatinine Ratio 10.1, Glucose 103, Calcium 8.8, Phosphorus 2.0 L, Magnesium 1.9 Radiography Diagnostic Testing: Radiology Impression Abdomen/Pelvis CT 09/10/22 11:03 IMPRESSION: Findings suggestive of a colitis involving the mid and distal portions of the transverse colon. Fatty infiltration of the liver. Electronically Signed: Antony Jiménez MD at 11:40 EDT , Physical Exam Narrative GENERAL: cooperative HEENT: Atraumatic; normocephalic EYES; Anicteric, Normal Conjunctiva NECK; supple, normal thyroid, RESPIRATORY: Diminished to auscultation CARDIOVASCULAR: Regular S1 S2, GI: soft, normoactive bowel sounds, periumbilical tenderness : No Renal angle tenderness; EXTREMITIES: No edema, no clubbing, MUSCULOSKELETAL: no muscle wasting NEURO: Awake; no lateralizing signs. SKIN: No Rash PSYCH; Flat affect Assessment & Plan Assessment/Plan (1) Colitis: PLAN: Plan Patient is a 61-year-old gentleman presented with abdominal pain and diarrhea imaging studies demonstrated colitis involving the mid and distal portions of the transverse colon 1. Acute colitis ? Ischemic versus infectious. Patient has been admitted to regular nursing floor as part of his management stool for C. difficile as well as enteric pathogen panel sent. Patient started on IV fluid, antibiotic therapy with Rocephin and metronidazole. Patient also started on pain meds for pain control in addition to antinausea medication ? 09/11/2022 significant improvement in patient's symptoms diarrhea appears to have subsided patient be assessed for possible discharge 2. Leukocytosis ? Secondary to above treatment as discussed above. Follow-up being monitored with daily CBC with differential ? 09/11/2022 WBC count trending in the right direction 3. Hypertension - Blood pressure controlled, home medications continued with dose adjustment as needed 4. Hypogonadism ? Patient is on anastrozole 5. GERD ? Patient is on PPI continue 6. Nonalcoholic fatty liver disease ? Monitoring with LFTs 7. Dyslipidemia -Patient is on statin therapy, continued at home dose 8. COPD ? Aerosol treatments as needed 9. DVT prophylaxis - On enoxaparin Time spent in the patient's overall evaluation,decision-making process, review of diagnostic data, adjustment of management, discussion with other providers, nursing nursing and ancillary staff involved in patient's care documentation, 37 Minutes Charges/Coding Visit Charges Inpatient E&M: 44986 Subs Hosp L2
[2022-09-11 08:01] VITALS: O2SAT 99
--- NOTE | 2022-09-11 08:26 | DS.PCM_ITS ---
Providers Date of Admission: 09/10/22 Date of Discharge: 09/11/22 Primary Care Physician: Dr. Kobi Alvarado MD Reason For Visit: COLITIS Diagnosis Discharge Diagnosis (1) Colitis: Status: Acute Code(s): K52.9 - Noninfective gastroenteritis and colitis, unspecified Plan Patient is a 61-year-old gentleman presented with abdominal pain and diarrhea imaging studies demonstrated colitis involving the mid and distal portions of the transverse colon 1. Acute colitis ? Ischemic versus infectious. Patient has been admitted to regular nursing floor as part of his management stool for C. difficile as well as enteric pathogen panel sent. Patient started on IV fluid, antibiotic therapy with Rocephin and metronidazole. Patient also started on pain meds for pain control in addition to antinausea medication ? 09/11/2022 significant improvement in patient's symptoms diarrhea appears to have subsided back ? Patient was instructed to follow-up with primary care physician on to be referred for outpatient colonoscopy to complete work-up 2. Leukocytosis ? Secondary to above treatment as discussed above. Follow-up being monitored with daily CBC with differential ? 09/11/2022 WBC count trending in the right direction 3. Hypertension - Blood pressure controlled, home medications continued with dose adjustment as needed 4. Hypogonadism ? Patient is on anastrozole 5. GERD ? Patient is on PPI continue 6. Nonalcoholic fatty liver disease ? Monitoring with LFTs 7. Dyslipidemia -Patient is on statin therapy, continued at home dose 8. COPD ? Aerosol treatments as needed 9. DVT prophylaxis - On enoxaparin Time spent in the patient's overall evaluation,decision-making process, review of diagnostic data, adjustment of management, discussion with other providers, nursing nursing and ancillary staff involved in patient's care documentation, 37 Minutes Medications at Discharge Home Medications Potassium Chloride 20 meq PO BID eletrolyte 03/15/19 albuterol sulfate 90 mcg/actuation breath activated powder inhaler 2 puff inhalation Q6H PRN PRN Sob &/Or Wheezing 03/15/19 anastrozole 1 mg tablet 1 mg PO QWEEK hormone 03/15/19 lisinopril 20 mg-hydrochlorothiazide 25 mg tablet 1 ea PO DAILY blood pressure 03/15/19 montelukast 10 mg tablet 10 mg PO QHS cough 03/15/19 omeprazole 20 mg tablet,delayed release 20 mg PO DAILY gerd 03/15/19 probenecid 500 mg tablet 500 mg PO BID gout 03/15/19 simvastatin 40 mg tablet 40 mg PO QHS cholestrol' 03/15/19 trazodone 150 mg tablet 150 mg PO QHS sleep 03/15/19 Neurontin 600 mg OTHER TID pain 09/10/22 duloxetine 30 mg capsule,delayed release (Cymbalta) 30 mg PO DAILY mood 09/10/22 indomethacin 50 mg capsule 50 mg PO TID gout 09/10/22 tamsulosin 0.4 mg capsule (Flomax) 0.4 mg PO LUNCH urination 09/10/22 tizanidine 4 mg capsule (Zanaflex) 4 mg PO QHS pain 09/10/22 cefdinir 300 mg capsule 300 mg PO BID #10 caps 09/11/22 metronidazole 500 mg tablet 500 mg PO TID #20 tabs 09/11/22 Hospital Course Summary of Care Provided Minutes Spent on Discharge: 37 Physical Exam Narrative GENERAL: cooperative HEENT: Atraumatic; normocephalic EYES; Anicteric, Normal Conjunctiva NECK; supple, normal thyroid, RESPIRATORY: Diminished to auscultation CARDIOVASCULAR: Regular S1 S2, GI: soft, normoactive bowel sounds, : No Renal angle tenderness; EXTREMITIES: No edema, no clubbing, MUSCULOSKELETAL: no muscle wasting NEURO: Awake; no lateralizing signs. SKIN: No Rash PSYCH; Flat affect Weight / BMI Weight Weight: 73.3 kg Body Mass Index (BMI) 25.9 ABG / Lab / Microbiology Data Result Diagrams: 09/11/22 04:43 09/11/22 04:43 Laboratory: Laboratory Results - last 24 hr 09/10/22 10:15: Urine Color Yellow, Urine Clarity Clear, Urine pH 6.0, Ur Specific [place] 1.010, Urine Protein 15 H, Urine Glucose (UA) Normal, Urine Ketones Negative, Urine Occult Blood 10 H, Urine Nitrite Negative, Urine Bilirubin 1 H, Urine Urobilinogen Normal, Ur Leukocyte Esterase 25 H, Urine RBC 0-5 SEEN, Urine WBC 0 SEEN, Ur Squamous Epith Cells 0-5 SEEN, Urine Bacteria 1+, Urine Mucus 0 SEEN 09/10/22 10:20: WBC 23.9 H, RBC 5.31, Hgb 15.7, Hct 46.1, MCV 86.8, MCH 29.6, MCHC 34.1, RDW Std Deviation 40.5, RDW Coeff of Precious 12.8, Plt Count 247, MPV 10.1, Immature Gran % (Auto) 0.500, Neut % (Auto) 81.5 H, Lymph % (Auto) 6.7 L, [place] % (Auto) 9.0, Eos % (Auto) 1.9, Baso % (Auto) 0.4, Absolute Neuts (auto) 19.5 H, Absolute Lymphs (auto) 1.61, Nucleated RBC % 0, Differential Comment SCANNED, Diff Path Review October09/10/22 10:20: Sodium 135 L, Potassium 4.2, Chloride 104, Carbon Dioxide 25.0, Anion Gap 6, BUN 15, Creatinine 1.14, Estim Creat Clear Calc 62.18, Est GFR (MDRD) Af Amer 84, Est GFR (MDRD) Non-Af 69, BUN/Creatinine Ratio 13.2, Glucose 119 H, Calcium 9.1, Total Bilirubin 1.80 H, AST 16, ALT 55, Alkaline Phosphatase 91, Total Protein 7.0, Albumin 3.8, Globulin 3.2, Albumin/Globulin Ratio 1.2, Lipase 130 09/10/22 12:11: Lactic Acid 0.7 09/11/22 04:43: WBC 13.4 H, RBC 4.73, Hgb 14.1, Hct 41.3, MCV 87.3, MCH 29.8, MCHC 34.1, RDW Std Deviation 41.1, RDW Coeff of Precious 12.8, Plt Count 203, MPV 11.0, Immature Gran % (Auto) 0.300, Neut % (Auto) 75.5 H, Lymph % (Auto) 11.8 L, [place] % (Auto) 8.5, Eos % (Auto) 3.7, Baso % (Auto) 0.2, Absolute Neuts (auto) 10.1 H, Absolute Lymphs (auto) 1.58, Nucleated RBC % 0 09/11/22 04:43: Sodium 137, Potassium 3.6, Chloride 106, Carbon Dioxide 24.0, Anion Gap 7, BUN 10, Creatinine 0.99, Estim Creat Clear Calc 71.60, Est GFR (MDRD) Af Amer 99, Est GFR (MDRD) Non-Af 81, BUN/Creatinine Ratio 10.1, Glucose 103, Calcium 8.8, Phosphorus 2.0 L, Magnesium 1.9 Radiography Diagnostic Testing: Radiology Impression Abdomen/Pelvis CT 09/10/22 11:03 IMPRESSION: Findings suggestive of a colitis involving the mid and distal portions of the transverse colon. Fatty infiltration of the liver. Electronically Signed: Antony Jiménez MD at 11:40 EDT , D/C Instructions Discharge Diet: No restrictions Discharge Activity: Return to Normal Activity Call your doctor if you observe: Fever of 101 or Higher, Shortness of breath, Fainting spells and Chest pain Meaningful Use Info Meaningful Use Diagnoses (Choose all that apply): None applicable Discharge Plan Admission Admit Date/Time: 09/10/22 12:09 Attending Provider: Robert Polanco Primary Care Provider: Kobi Alvarado Discharge Orders/Prescriptions Prescriptions: New metronidazole 500 mg tablet 500 mg PO TID Qty: 20 0RF cefdinir 300 mg capsule 300 mg PO BID Qty: 10 0RF Continued anastrozole 1 MG tablet 1 mg PO QWEEK Rx Instructions: took it 09/08/22 simvastatin 40 MG tablet 40 mg PO QHS trazodone 150 MG tablet 150 mg PO QHS lisinopril-hydrochlorothiazide 1 EACH tablet 1 ea PO DAILY montelukast 10 MG tablet 10 mg PO QHS probenecid 500 MG tablet 500 mg PO BID omeprazole 20 MG tablet,delayed release (DR/EC) 20 mg PO DAILY albuterol sulfate 90 MCG aerosol powdr breath activated 2 puff inhalation Q6H PRN PRN (Reason: Sob &/Or Wheezing) Potassium Chloride 10 MEQ Capsule.Er 20 meq PO BID indomethacin 50 mg Capsule 50 mg PO TID Rx Instructions: administer with food or milk duloxetine [Cymbalta] 30 mg Capsule,Delayed Release(Dr/Ec) 30 mg PO DAILY tizanidine [Zanaflex] 4 mg Capsule 4 mg PO QHS Neurontin tablet 600 mg OTHER TID Rx Instructions: oral pill tamsulosin [Flomax] 0.4 mg Capsule 0.4 mg PO LUNCH Referrals / Follow Up: Kobi Alvarado MD [Primary Care Provider] - In 1 Week Disposition Disposition (needs filled in before D/C Order can be placed): Home, Self Care Charges/Coding Visit Charges Inpatient E&M: 48355 Disch Hosp >30min
--- NOTE | 2022-09-11 09:10 | CASEMGMT ---
SHIRLENE WOODS Assessment: Face to Face with pt for initial transition planning/care coordination assessment. RN CHUCK introduced self and role at [facility], pt voices understanding and consents to assessment. Pt is A/O x4 and answers all questions appropriately at this time. Pt sitting up in bed in no distress. Care providers, pharmacy, and demographics verified/updated. Admitting Dx: colitis PCP:Jenny Specialists:Pt denies. Preferred Pharmacy: [facility] Retail Insurance: [facility] Prescription Benefit: yes LNOK: Cathy Puga, sig other Living Arrangements: Pt lives with sig other in a 2nd story apt with 12 steps to enter with a rail. Pt reports he is I in ADL's and denies concerns at home. Transportation: Pt drives self and denies concerns with transportation. DME/HHC/SNF: Pt denies having any DME in the home, previous HHC or SNF stays. Pt states no concerns with going home at time of dc. Pt plans on going to work Wednesday. Pt states no further concerns/needs. CM to follow. Advised pt to ask CM if any further question/concerns/needs arise, voices understanding. Pt Goal: Home Plan: Home
[2022-09-11] MEDS: DULoxetine Hcl 30 MG Capsule PO (09:59)
[2022-09-11] MEDS: Pantoprazole Sodium 40 MG Tablet PO (09:59)
[2022-09-11] MEDS: Lisinopril 10 MG Tablet PO (09:59)
[2022-09-11] MEDS: hydroCHLOROthiazide 12.5mg 12.5 MG PO (09:59)
[2022-09-11 10:21] VITALS: BP 164/94; PULSE 65; RESP 18; TEMP 37.2; O2SAT 96
[2022-09-11 12:58] LABS: Pathologist Review Reviewed
== END 2022-09-11 10:15 | disposition home or self-care (01) | DRG 249 ==
LOC: ED 12:11 → MS3 13:51
PROVIDERS: Admitting Provider Internal Medicine; Emergency Provider Emergency Medicine; PCP Family Medicine; Referring Provider Emergency Medicine; Visit Provider Internal Medicine
DX: K52.9 Noninfective gastroenteritis and colitis, unspecified (principal); J44.9 Chronic obstructive pulmonary disease, unspecified; E29.1 Testicular hypofunction; K76.0 Fatty (change of) liver, not elsewhere classified; I10 Essential (primary) hypertension; K21.9 Gastro-esophageal reflux disease without esophagitis; Z87.891 Personal history of nicotine dependence; K25.9 Gastric ulcer, unspecified as acute or chronic, without hemorrhage or perforation; Z79.899 Other long term (current) drug therapy
CPT/HCPCS: 36415; 74177; 80048; 80053; 81001; 83605; 83690; 83735; 84100; 85025; 87040; 87493; 94668; 96361; 96365; 96366; 96367; 96368; 96372; 96375; 96376; 99221; 99252; 99284; J7030; Q9967; A4216; G0378; G0463

== ENCOUNTER 2023-01-04 14:12 | Emergency (ER) | payer MEDICAID, SELFPAY ==
[2023-01-04 14:14] VITALS: BP 172/101; PULSE 56; RESP 18; TEMP 36.8; O2SAT 98; BMI 28.3
--- NOTE | 2023-01-04 15:55 | EX.ED.DYSGE1 ---
HPI History of Present Illness Chief Complaint: Other, Pain/Inj Detail of Chief Complaint: Patient was sent because of swelling left-sided neck and told that his puls Informant: patient and spouse/S.O. Onset/Context/Timing Onset: - (Onset January 01.) Context: Sudden Onset Timing: Continuous Quality: Pain and swelling Location: Near the sternocleidomastoid muscle on the left Current Severity: Mild Maximum Severity: Moderate Worsened by: Increased pain with Relieved by: Nothing Associated Symptoms Associated Symptoms: Patient does endorse recent viral-like symptoms. Narrative Narrative: Patient is a 62-year-old male who went to see his primary care physician. He was seen by the nurse practitioner. He was told he has a pulsatile mass and that she was unable to do anything for him and sent him to the emergency department. He denies recent fever, chills night sweats. He denies headache. He denies double vision, blurred vision or loss of vision. He denies trouble with speech or swallowing. He first noted the swelling and experienced a discomfort this past Wednesday. He denies difficulty swallowing. He denies cough or sputum production. He denies chest discomfort. He denies paresthesia, anesthesia or motor weakness upper or lower extremity. Patient's medication list was reviewed. There is no history of glaucoma. Prior similar symptoms: No Recent Illness/Hospitalization: No [facility] Medical History Anxiety Asthma Chronic pain Depression Former smoker GERD (gastroesophageal reflux disease) Gout Hyperlipemia Hypertension Hypogonadism Spinal stenosis Substance abuse Home Medications Potassium Chloride 20 meq PO BID eletrolyte 03/15/19 [History Last Taken 09/08/22 08:00] albuterol sulfate 90 mcg/actuation breath activated powder inhaler 2 puff inhalation Q6H PRN PRN Sob &/Or Wheezing 03/15/19 [History Last Taken Unknown] anastrozole 1 mg tablet 1 mg PO WE hormone 03/15/19 [History Last Taken 09/08/22 08:00] lisinopril 20 mg-hydrochlorothiazide 25 mg tablet 1 ea PO DAILY blood pressure 03/15/19 [History Last Taken 09/10/22 08:00] montelukast 10 mg tablet 10 mg PO QHS cough 03/15/19 [History Last Taken Unknown] omeprazole 20 mg tablet,delayed release 20 mg PO DAILY gerd 03/15/19 [History Last Taken 09/09/22 08:00] probenecid 500 mg tablet 500 mg PO BID gout 03/15/19 [History Last Taken 09/10/22 08:00] simvastatin 40 mg tablet 40 mg PO QHS cholestrol' 03/15/19 [History Last Taken 09/09/22 22:00] trazodone 150 mg tablet 150 mg PO QHS sleep 03/15/19 [History Last Taken 09/09/22 08:00] Neurontin 600 mg OTHER TID pain 09/10/22 [History Last Taken 09/10/22 08:00] duloxetine 30 mg capsule,delayed release (Cymbalta) 90 mg PO DAILY mood 09/10/22 [History Last Taken 09/09/22 08:00] indomethacin 50 mg capsule 50 mg PO TID gout 09/10/22 [History Last Taken 09/10/22 08:00] tamsulosin 0.4 mg capsule (Flomax) 0.4 mg PO LUNCH urination 09/10/22 [History Last Taken Unknown] tizanidine 4 mg capsule (Zanaflex) 4 mg PO QHS pain 09/10/22 [History Last Taken 09/09/22 22:00] metronidazole 500 mg tablet 500 mg PO TID #20 tabs 09/11/22 [Rx Last Taken Unknown] azithromycin 250 mg tablet 250 mg PO DAILY #4 TABLETS 01/04/23 [Rx Last Taken Unknown] Allergy/AdvReac Type Severity Reaction Status Date / Time tetracycline Allergy Swelling Verified 01/04/23 14:13 Surgical History History of adenoidectomy History of appendectomy Hx of cholecystectomy Hx of tonsillectomy Social History (Updated 01/04/23 @ 15:[address] Marco Ordoñez MD) household members: spouse Smoking Status: Former smoker alcohol intake: current substance use type: does not use ROS ROS ED Constitutional Constitutional ED: Denies chills, fever(s), subjective, sweats or weight loss Eyes Eyes: Denies blurry vision, change in vision or diplopia ENT ENT ED: Reports other Details: Left-sided neck pain and swelling. ; Denies ear pain, rhinorrhea or sore throat Cardiovascular Cardiovascular: Denies chest pain, orthopnea, palpitations, paroxysmal nocturnal dyspnea or racing heartbeat Respiratory/Chest Respiratory/Chest: Denies cough, dyspnea, dyspnea on exertion, orthopnea or paroxysmal nocturnal dyspnea Gastrointestinal Gastrointestinal: Denies abdominal pain, constipation, diarrhea, melena, nausea or vomiting Genitourinary Genitourinary ED: Denies dysuria, hematuria or urinary frequency Musculoskeletal Musculoskeletal: Denies arthralgias, back pain, myalgias or neck pain Integumentary Denies rash Neurologic Neurologic: Denies headache(s), paresthesias or weakness Psychiatric Psychiatric: Denies anxiety or depression Endocrine Endocrinology: Denies cold intolerance or heat intolerance Hematologic/Lymphatic Hematologic/Lymphatic: Reports systems reviewed and no addt'l complaints, except as documented EXAM Physical Exam Const Vital Signs: 01/04/23 14:14 01/04/23 15:43 Temperature 98.2 F Temperature Source Temporal Pulse Rate 56 L Respiratory Rate 18 Respiratory Effort Normal Non-Labored Respiratory Pattern Normal Blood Pressure 172/101 H Blood Pressure Mean 124 Pulse Ox 98 Oxygen Delivery Method Room Air Positive well nourished and well developed General Appearance ED: well developed and NAD; Negative for cyanotic, diaphoretic or pallor HEENT Reports moist mucous membranes HEENT Narrative: There is palpable nodes on the left.. These nodes are tender. His left carotid pulse is slightly more prominent. There is no carotid bruit. There is no tenderness over the temporal artery. Ears are normal. There is no preauricular lymphadenopathy. TM is normal. Eyes PERRL and EOMs intact bilaterally General Eye ED: Negative for pale conjunctiva or scleral icterus Neck no lymphadenopathy, supple and no JVD Chest Wall inspection of chest normal and palpation of chest normal Resp normal respiratory effort and clear to auscultation bilaterally Cardio regular rate, regular rhythm, S1 normal heart sound, S2 normal heart sound and no murmurs GI normal to inspection, nondistended, normoactive bowel sounds, non-tender, non-distended and no masses; Negative for hepatosplenomegaly Palpation: soft Back/Spine no CVA tenderness Neuro oriented x3, CN's II-XII intact bilaterally and no sensory deficits noted Sensorium / Orientation: alert Motor Exam: strength 5/5 throughout Psych mental status grossly normal Skin no rashes or lesions noted, no wounds and skin turgor normal General Skin Exam: Negative for elasticity normal, jaundice or pallor MDM MDM MDM Narrative Medical decision making narrative: Suspect this is a cervical adenitis. Because he does report tenderness when I palpated over the carotid artery ESR was obtained to assess for arteritis. There is no tenderness over the temporal arteries. He has no ocular symptoms. Also obtain CBC to assess white count differential and electrolytes. History & Record Review Additional record(s) reviewed:: Prior outpatient record, Prior ED visit and Prior labs Lab Data Attestation: I reviewed the patient's lab results. Lab results narrative: CBC is unremarkable. Basic metabolic panel is [place]. Sed rate is less than 1. Labs: Laboratory Results - last 24 hr 01/04/23 16:00 WBC 9.8 RBC 5.24 Hgb 15.3 Hct 46.2 MCV 88.2 MCH 29.2 MCHC 33.1 RDW Std Deviation 44.6 H RDW Coeff of Precious 13.8 Plt Count 218 MPV 10.0 Immature Gran % (Auto) 0.600 Neut % (Auto) 60.8 Lymph % (Auto) 25.3 [place] % (Auto) 7.8 Eos % (Auto) 4.7 Baso % (Auto) 0.8 Absolute Neuts (auto) 6.0 Absolute Lymphs (auto) 2.48 Nucleated RBC % 0 ESR < 1 Sodium 137 Potassium 4.1 Chloride 105 Carbon Dioxide 28.0 Anion Gap 4 L BUN 14 Creatinine 1.17 Estim Creat Clear Calc 59.83 Est GFR (MDRD) Af Amer 82 Est GFR (MDRD) Non-Af 67 BUN/Creatinine Ratio 12.0 Glucose 132 H Calcium 8.2 L Treatment and Re-Evaluation :: She was treated with NSAIDs since he has normal renal function for his pain. He was placed on macrolide for cervical adenitis. Discharge Plan Triage Chief Complaint: Other, Pain/Inj ED Provider: Marco Ordoñez Dx/Rx/DC Orders Clinical Impression: Acute cervical adenitis Instructions: ED ADENITIS Cervical Abx Tx Prescriptions: New azithromycin [azithromycin] 250 mg tablet 250 mg PO DAILY Qty: 4 0RF No Action anastrozole 1 MG tablet 1 mg PO WE Rx Instructions: took it 09/08/22 simvastatin 40 MG tablet 40 mg PO QHS trazodone 150 MG tablet 150 mg PO QHS lisinopril-hydrochlorothiazide 1 EACH tablet 1 ea PO DAILY montelukast 10 MG tablet 10 mg PO QHS probenecid 500 MG tablet 500 mg PO BID omeprazole 20 MG tablet,delayed release (DR/EC) 20 mg PO DAILY albuterol sulfate 90 MCG aerosol powdr breath activated 2 puff inhalation Q6H PRN PRN (Reason: Sob &/Or Wheezing) Potassium Chloride 10 MEQ Capsule.Er 20 meq PO BID indomethacin 50 mg Capsule 50 mg PO TID Rx Instructions: administer with food or milk duloxetine [Cymbalta] 30 mg Capsule,Delayed Release(Dr/Ec) 90 mg PO DAILY tizanidine [Zanaflex] 4 mg Capsule 4 mg PO QHS Neurontin tablet 600 mg OTHER TID Rx Instructions: oral pill tamsulosin [Flomax] 0.4 mg Capsule 0.4 mg PO LUNCH metronidazole 500 mg tablet 500 mg PO TID Qty: 20 0RF Primary Care Provider: oKbi Alvarado Referrals: Kobi Alvarado MD [Primary Care Provider] - Disposition Disposition: Home, Self Care
[2023-01-04 16:10] LABS: Absolute Lymphocyte Count 2.48 X10^3/uL (0.83-4.51); Basophil# 0.08 X10^3/uL; Basophil% 0.8 % (0-1); Eosinophil# 0.46 X10^3/uL; Eosinophils% 4.7 % (0-5); Hematocrit 46.2 % (40-54); Hemoglobin 15.3 g/dL (13.0-16.5); Lymphocyte # 2.48 X10^3/ul (0.83-4.51); Lymphocyte % 25.3 % (19-41); Mean Corp Hgb Conc 33.1 g/dL (32-36); Mean Corpuscular Hgb 29.2 pg (27.0-32.0); Mean Corpuscular Volume 88.2 fL (80-94); Monocyte# 0.77 X10^3/uL; Monocyte% 7.8 % (0-10); NRBC Flagged by Analyzer 0 % (0-5); Neutrophil # 5.97 X10^3/uL (2.7-7.7); Neutrophil % 60.8 % (47-70); Platelet Count 218 K/mm3 (150-450); RBC Distribution Width CV 13.8 % (11.6-14.6); RBC Distribution Width SD 44.6 fl (35.1-43.9); Red Blood Count 5.24 M/mm3 (4.6-6.2); White Blood Count 9.8 K/mm3 (4.4-11.0)
[2023-01-04 16:21] LABS: Erythrocyte Sedimentation Rate < 1 mm/hr (0-20)
[2023-01-04 16:27] LABS: Anion Gap 4 (5-15); BUN 14 mg/dL (7-18); Calcium,Total 8.2 mg/dL (8.5-10.1); Chloride 105 mmol/L (98-107); Creatinine, Serum 1.17 mg/dL (0.70-1.30); EST Glomerular Filtration Rate 67 mL/min (>60); Est Glom Filt Rate - Afr Amer 82 mL/min (>60); Estimated Creatinine Clearance 59.83 ml/min; Glucose 132 mg/dL (74-106); Potassium 4.1 mmol/L (3.5-5.1); Sodium Level 137 mmol/L (136-145)
[2023-01-04 17:00] VITALS: O2SAT 97
[2023-01-04 17:13] VITALS: BP 129/77; PULSE 74; RESP 17; O2SAT 97
[2023-01-04] MEDS: Naproxen 250 MG Tablet 500 MG PO (17:32)
[2023-01-04] MEDS: Azithromycin 250 MG Tablet 500 MG PO (17:32)
== END 2023-01-04 17:39 | disposition home or self-care (01) ==
PROVIDERS: Emergency Provider Emergency Medicine; PCP Family Medicine; Visit Provider Emergency Medicine
DX: L04.0 Acute lymphadenitis of face, head and neck (principal); E78.5 Hyperlipidemia, unspecified; Z87.891 Personal history of nicotine dependence; I10 Essential (primary) hypertension; J45.909 Unspecified asthma, uncomplicated; K21.9 Gastro-esophageal reflux disease without esophagitis; M10.9 Gout, unspecified; F41.9 Anxiety disorder, unspecified; F32.A Depression, unspecified; Z79.899 Other long term (current) drug therapy; Z90.49 Acquired absence of other specified parts of digestive tract
CPT/HCPCS: 80048; 85025; 85652; 99284; A4216

== ENCOUNTER 2023-06-23 13:14 | Emergency (ER) | payer MEDICAID, SELFPAY ==
[2023-06-23 13:14] VITALS: BP 202/126; PULSE 73; RESP 16; TEMP 36.6; O2SAT 100; BMI 29.1
[2023-06-23 16:13] VITALS: BP 158/141; PULSE 55; RESP 16; O2SAT 97
--- NOTE | 2023-06-23 16:22 | CT_ITS ---
STUDY: CT SOFT TISSUE NECK WITH CONTRAST REASON FOR EXAM: Male, 62 years old. pain, left sided mass RADIATION DOSAGE (If Supplied By Facility): CTDIvol = ( 17.74 ) mGy, DLP = ( 549.67 ) mGycm TECHNIQUE: The patient was scanned in a multi-detector CT scanner. High resolution transaxial imaging was performed following intravenous administration of IV 75mL [id number]-[id number]. Sagittal and coronal images were reconstructed. Individualized dose optimization techniques were used for this CT. COMPARISON: None. FINDINGS: Normal bilateral parotid glands. Normal bilateral curatorial specialist spaces. Normal bilateral parapharyngeal spaces. Normal bilateral carotid spaces. Normal bilateral sublingual and submandibular glands and spaces. Normal visualized nasopharynx. Normal retropharyngeal space. Normal perivertebral space. Normal visualized bilateral faucial tonsils. The visualized tongue, tongue base and oropharynx are normal. The visualized cervical lymph nodes (levels I-) are within normal size limits, and maintain normal morphology. There is no demonstrated solid or cystic mass lesion. There is no abnormal contrast enhancement. Normal epiglottis, bilateral vallecula and hypopharynx. The pre-epiglottic and paraglottic adipose spaces are normal. Normal visualized bilateral piriform sinuses, aryepiglottic folds, vocal cords, and arytenoid-cricoid articulations. Normal subglottic trachea. Normal bilateral lobes of the thyroid gland. Normal visualized pulmonary apices. Minor mucosal thickening of the right maxillary sinus. Cervical spine demonstrates advanced spondylosis CT/Soft Tissue Neck WITH Contrast IMPRESSION: No discrete neck mass or pathologic adenopathy is seen utilizing CT size or morphologic criteria.. Advanced spondylosis of the cervical spine. Electronically Signed: Carlos Agee MD at 17:59 EST ,
--- NOTE | 2023-06-23 16:31 | EX.ED.DYSGE1 ---
HPI History of Present Illness Chief Complaint: Wound Detail of Chief Complaint: Left neck swelling Informant: patient Narrative Narrative: Patient presents with painful swelling to the left side of his neck for the past week. He states he had something similar last summer and was told it was enlarged lymph node that got better after antibiotics. Patient does report increased pain with this episode. [facility] Medical History Anxiety Asthma Chronic pain Depression Former smoker GERD (gastroesophageal reflux disease) Gout Hyperlipemia Hypertension Hypogonadism Spinal stenosis Substance abuse Home Medications Potassium Chloride 20 meq PO BID eletrolyte 03/15/19 [History Last Taken 09/08/22 08:00] albuterol sulfate 90 mcg/actuation breath activated powder inhaler 2 puff inhalation Q6H PRN PRN Sob &/Or Wheezing 03/15/19 [History Last Taken Unknown] anastrozole 1 mg tablet 1 mg PO WE hormone 03/15/19 [History Last Taken 09/08/22 08:00] lisinopril 20 mg-hydrochlorothiazide 25 mg tablet 1 ea PO DAILY blood pressure 03/15/19 [History Last Taken 09/10/22 08:00] montelukast 10 mg tablet 10 mg PO QHS cough 03/15/19 [History Last Taken Unknown] omeprazole 20 mg tablet,delayed release 20 mg PO DAILY gerd 03/15/19 [History Last Taken 09/09/22 08:00] probenecid 500 mg tablet 500 mg PO BID gout 03/15/19 [History Last Taken 09/10/22 08:00] simvastatin 40 mg tablet 40 mg PO QHS cholestrol' 03/15/19 [History Last Taken 09/09/22 22:00] trazodone 150 mg tablet 150 mg PO QHS sleep 03/15/19 [History Last Taken 09/09/22 08:00] Neurontin 600 mg OTHER TID pain 09/10/22 [History Last Taken 09/10/22 08:00] duloxetine 30 mg capsule,delayed release (Cymbalta) 90 mg PO DAILY mood 09/10/22 [History Last Taken 09/09/22 08:00] indomethacin 50 mg capsule 50 mg PO TID gout 09/10/22 [History Last Taken 09/10/22 08:00] tamsulosin 0.4 mg capsule (Flomax) 0.4 mg PO LUNCH urination 09/10/22 [History Last Taken Unknown] tizanidine 4 mg capsule (Zanaflex) 4 mg PO QHS pain 09/10/22 [History Last Taken 09/09/22 22:00] metronidazole 500 mg tablet 500 mg PO TID #20 tabs 09/11/22 [Rx Last Taken Unknown] azithromycin 250 mg tablet 250 mg PO DAILY #4 TABLETS 01/04/23 [Rx Last Taken Unknown] cyclobenzaprine 10 mg tablet 10 mg PO TID PRN Muscle Spasm #20 TABLETS 06/23/23 [Rx Last Taken Unknown] hydrocodone-acetaminophen 5-325mg 5mg-325mg 1 tab PO Q6H PRN PRN Pain 3 days #10 TABLETS 06/23/23 [Rx Last Taken Unknown] Allergy/AdvReac Type Severity Reaction Status Date / Time tetracycline Allergy Swelling Verified 06/23/23 13:14 Surgical History History of adenoidectomy History of appendectomy Hx of cholecystectomy Hx of tonsillectomy Social History household members: spouse Smoking Status: Former smoker alcohol intake: current substance use type: does not use ROS ROS ED Constitutional Constitutional ED: Denies chills or fever(s) Eyes Eyes: Denies discharge from eye(s) ENT ENT ED: Denies discharge from eye(s), rhinorrhea or sore throat Cardiovascular Cardiovascular: Denies chest pain or palpitations Respiratory/Chest Respiratory/Chest: Denies cough or dyspnea Gastrointestinal Gastrointestinal: Denies abdominal pain, nausea or vomiting Genitourinary Genitourinary ED: Denies difficulty urinating or dysuria Musculoskeletal Musculoskeletal: Reports neck pain; Denies back pain or extremity pain Integumentary Denies Abrasions or rash Neurologic Neurologic: Denies headache(s) or weakness Psychiatric Psychiatric: Reports anxiety Allergic/Immunologic Allergic/Immunologic ED: Denies lip swelling or urticaria EXAM Physical Exam Const Vital Signs: 06/23/23 13:14 06/23/23 16:13 Temperature 97.8 F Temperature Source Temporal Pulse Rate 73 55 L Respiratory Rate 16 16 Blood Pressure 202/126 H 158/141 H Blood Pressure Mean 151 146 Pulse Ox 100 97 Oxygen Delivery Method Room Air Positive well nourished and well developed General Appearance ED: well developed HEENT Reports moist mucous membranes HEENT Narrative: TMs clear bilaterally. No tenderness with palpation over the mastoid air cells. Painful swelling to the left lateral neck consistent with lymphadenitis. No overlying skin change. Eyes EOMs intact bilaterally Neck Neck Narrative: Hypersensitivity the skin over the posterior neck. No focal midline tenderness. Chest Wall inspection of chest normal and palpation of chest normal Resp normal respiratory effort and clear to auscultation bilaterally Cardio regular rate and regular rhythm GI non-tender Extremity normal to inspection Neuro oriented x3 Sensorium / Orientation: alert Psych mental status grossly normal MDM MDM MDM Narrative Medical decision making narrative: IV line initiated. Patient given morphine and Zofran for pain. Labwork obtained to evaluate for leukocytosis, anemia, and electrolyte derangement. CT of the neck with contrast obtained to further evaluate this mass. Lab Data Labs: Laboratory Results - last 24 hr 06/23/23 16:45 WBC 9.1 RBC 5.30 Hgb 15.8 Hct 46.0 MCV 86.8 MCH 29.8 MCHC 34.3 RDW Std Deviation 41.8 RDW Coeff of Precious 13.2 Plt Count 220 MPV 10.3 Immature Gran % (Auto) 0.600 Neut % (Auto) 54.0 Lymph % (Auto) 29.7 [place] % (Auto) 9.9 Eos % (Auto) 4.8 Baso % (Auto) 1.0 Absolute Neuts (auto) 4.9 Absolute Lymphs (auto) 2.70 Nucleated RBC % 0 ESR 1 Sodium 140 Potassium 4.1 Chloride 105 Carbon Dioxide 30.0 Anion Gap 5 BUN 14 Creatinine 1.06 Estim Creat Clear Calc 73.54 Est GFR (MDRD) Af Amer 91 Est GFR (MDRD) Non-Af 75 BUN/Creatinine Ratio 13.2 Glucose 91 Calcium 9.3 C-React Prot Ext Range < 2.90 Radiography Diagnostic Testing: Clinical Impression(s) from Imaging Studies Soft Tissue Neck CT 06/23/23 16:22 IMPRESSION: No discrete neck mass or pathologic adenopathy is seen utilizing CT size or morphologic criteria.. Advanced spondylosis of the cervical spine. Electronically Signed: Carlos Agee MD at 17:59 EST , Treatment and Re-Evaluation :: Patient was given additional dose of morphine for pain control after returning from CT. CBC reveals normal white count at 9.1 with 54% neutrophils. Chemistry studies are unremarkable. CRP is less than 2.9 and sed rate is 1. CT scan of the neck reveals no discrete neck mass or pathologic adenopathy. On repeat examination patient still having significant spasm. I will give him a dose of Flexeril and write him prescriptions for both [place] and Flexeril. He is to follow up with his primary care physician. Discharge Plan Triage Chief Complaint: Wound ED Provider: Ashley Singh Dx/Rx/DC Orders Clinical Impression: Neck muscle spasm Instructions: ED Neck Spasm, No Trauma Prescriptions: New cyclobenzaprine 10 mg tablet 10 mg PO TID PRN (Reason: Muscle Spasm) Qty: 20 0RF hydrocodone-acetaminophen 5-325 mg tablet 1 tab PO Q6H PRN PRN (Reason: Pain) 3 Days Qty: 10 0RF No Action anastrozole 1 MG tablet 1 mg PO WE Rx Instructions: took it 09/08/22 simvastatin 40 MG tablet 40 mg PO QHS trazodone 150 MG tablet 150 mg PO QHS lisinopril-hydrochlorothiazide 1 EACH tablet 1 ea PO DAILY montelukast 10 MG tablet 10 mg PO QHS probenecid 500 MG tablet 500 mg PO BID omeprazole 20 MG tablet,delayed release (DR/EC) 20 mg PO DAILY albuterol sulfate 90 MCG aerosol powdr breath activated 2 puff inhalation Q6H PRN PRN (Reason: Sob &/Or Wheezing) Potassium Chloride 10 MEQ Capsule.Er 20 meq PO BID indomethacin 50 mg Capsule 50 mg PO TID Rx Instructions: administer with food or milk duloxetine [Cymbalta] 30 mg Capsule,Delayed Release(Dr/Ec) 90 mg PO DAILY tizanidine [Zanaflex] 4 mg Capsule 4 mg PO QHS Neurontin tablet 600 mg OTHER TID Rx Instructions: oral pill tamsulosin [Flomax] 0.4 mg Capsule 0.4 mg PO LUNCH metronidazole 500 mg tablet 500 mg PO TID Qty: 20 0RF azithromycin [azithromycin] 250 mg tablet 250 mg PO DAILY Qty: 4 0RF Primary Care Provider: Kobi Alvarado Referrals: Kobi Alvarado MD [Primary Care Provider] - 1 Week Disposition Disposition: Home, Self Care Capacity Legal Field [employer]ologist Reflex Medical hold order details:: IF a medical hold is selected below, a suggested order for a MEDICAL HOLD will reflex upon signing the document. Next of kin: [place] law dictates a PRIORITY LIST for identifying legal decision-maker/legal next of kin in the following order (LNOK): 1st: The patient?s legal guardian, if any 2nd: The patient's spouse (if status is questionable, consult Risk Management) 3rd: The patient?s adult child(luz) (majority, if multiple children) 4th: The patient?s parents 5th: The patient?s adult siblings (majority, if multiple children siblings)
[2023-06-23] MEDS: Ondansetron 4 MG/2 ML Vial IV (16:49)
[2023-06-23] MEDS: Morphine 4 MG/ML Syringe IV ×2 (16:49→19:01)
[2023-06-23 16:57] LABS: Absolute Neutrophil Count 4.9 X10^3/uL (2.0-7.7); Basophil# 0.09 X10^3/uL; Eosinophil# 0.44 X10^3/uL; Eosinophils% 4.8 % (0-5); Hemoglobin 15.8 g/dL (13.0-16.5); Lymphocyte % 29.7 % (19-41); Mean Corp Hgb Conc 34.3 g/dL (32-36); Mean Corpuscular Hgb 29.8 pg (27.0-32.0); Mean Corpuscular Volume 86.8 fL (80-94); Mean Platelet Vol. 10.3 fl (6.2-12.0); Monocyte% 9.9 % (0-10); NRBC Flagged by Analyzer 0 % (0-5); Neutrophil # 4.91 X10^3/uL (2.7-7.7); Platelet Count 220 K/mm3 (150-450); RBC Distribution Width CV 13.2 % (11.6-14.6); RBC Distribution Width SD 41.8 fl (35.1-43.9); White Blood Count 9.1 K/mm3 (4.4-11.0)
--- OUTSIDE RECORDS SUMMARY | 2023-06-23 17:24 | XMS RPT_ITS | CCD ---
Author Name Unknown Address [id number] [place] [address] Organization [facility] Care Team Providers Care Assistant Passenger Locomotive Engineer Name Role Phone Marianne Che MD Primary Care Provider MARIANNE CHE Primary Care Unavailable ASHLEY ANTONY Referring Unavailable MARIANNE CHE Primary Care Unavailable ANGELA SOLORIO Referring Unavailable Marianne Che MD Primary Care Provider MARIANNE CHE Primary Care Unavailable MARIANNE CHE Referring Unavailable MARIANNE CHE Primary Care Unavailable ANGELA SOLORIO Attending Unavailable MARIANNE CHE Attending Unavailable MARIANNE CHE Primary Care Unavailable MARIANNE CHE Primary Care Unavailable ANGELA SOLORIO Attending Unavailable MARIANNE CHE Primary Care Unavailable ANGELA SOLORIO Attending Unavailable MARIANNE CHE Attending Unavailable MARIANNE CHE Primary Care Unavailable MARIANNE CHE Primary Care Unavailable MARIANNE CHE Referring Unavailable MARIANNE CHE Attending Unavailable MARIANNE CHE Primary Care Unavailable MARIANNE CHE Primary Care Unavailable ASHLEY ANTONY Attending Unavailable MARIANNE CHE Attending Unavailable MARIANNE CHE Primary Care Unavailable MARIANNE CHE Attending Unavailable MARIANNE CHE Primary Care Unavailable Allergies Allergy Classification Reported Allergen(s) Allergy Type Date of Onset Reaction(s) Facility (20 sources) Tetracycline; Translations: [TETRACYCLINE] Drug Allergy 10-23-2015 [facility] (20 sources) Cycline-250; Translations: [CYCLINE-250] Drug Allergy 10-23-2015 [facility] Medications Current Medications Medication Drug Class(es) Dates Sig (Normalized) Sig (Original) azithromycin 250 mg oral tablet (1 source) Macrolide Antimicrobial Start: 01-08-2023 End: 01-13-2023 azithromycin (ZITHROMAX Z-MORENA) 250 mg tablet Indications: Acute cervical adenitis Take 1 tab daily 4 tablet 0 01/08/2023 01/13/2023 Active Completed/Discontinued Medications Medication Drug Class(es) Dates Sig (Normalized) Sig (Original) [id number] 200 actuat albuterol 0.09 mg/actuat metered dose inhaler (20 sources) beta2-Adrenergic Agonist Start: 06-12-2022 End: 04-06-2023 take 2 puff(s) by inhalation every four hours as needed albuterol HFA (VENTOLIN HFA) 90 mcg/actuation inhaler Indications: Asthma, moderate persistent, well-controlled , COVID-19 Inhale 2 Puffs as instructed every 4 hours as needed. 18 g 5 04/07/2023 Active Problems Active Problems Problem Classification Problem Date Documented Da te Episodic/Chronic Adjustment disorders (20 sources) Adjustment disorder with mixed anxiety and depressed mood; Translations: [Adjustment disorder with mixed anxiety and depressed mood] Onset: 6 10-27-2015 Chronic Asthma (20 sources) Moderate persistent asthma controlled; Translations: [Moderate persistent asthma, uncomplicated] Onset: 6 06-02-2021 Chronic Conditions associated with dizziness or vertigo (1 source) Dizziness; Translations: [Dizziness and giddiness] Episodic Disorders of lipid metabolism (20 sources) Mixed hyperlipidemia; Translations: [Mixed hyperlipidemia] Onset: 6 10-27-2015 Chronic Esophageal disorders (3 sources) Gastroesophageal reflux disease without esophagitis; Translations: [Gastro-esophageal reflux disease without esophagitis] Chronic Essential hypertension (20 sources) Essential hypertension; Translations: [Essential (primary) hypertension] Onset: 0 10-27-2019 Chronic Fluid and electrolyte disorders (1 source) Dehydration; Translations: [Dehydration] Episodic Gout and other crystal arthropathies (20 sources) 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; Translations: [Idiopathic chronic gout, unspecified site, without tophus (tophi)] Onset: 6 10-27-2015 Chronic Immunizations and screening for infectious disease (1 source) Vaccination needed; Translations: [Encounter for immunization] 01-29-2023 Episodic Influenza (1 source) Influenza due to Influenza A virus; Translations: [Influenza due to other identified influenza virus with other respiratory manifestations] Episodic Lymphadenitis (1 source) Acute cervical adenitis ; Translations: [Acute lymphadenitis of face, head and neck] 01-08-2023 Episodic Miscellaneous mental health disorders (1 source) Chronic insomnia; Translations: [Psychophysiologic insomnia] Chronic Noninfectious gastroenteritis (1 source) Colitis; Translations: [Noninfective gastroenteritis and colitis, unspecified] Episodic Osteoarthritis (1 source) Arthritis; Translations: [Unspecified osteoarthritis, unspecified site] Chronic Other connective tissue disease (1 source) Pain of bilateral hands; Translations: [Pain in right hand] Episodic Other connective tissue disease (1 source) Radial styloid tenosynovitis; Translations: [Radial styloid tenosynovitis [de Quervain]] Episodic Other endocrine disorders (20 sources) Male hypogonadism; Translations: [Testicular hypofunction] Onset: 6 10-27-2015 Chronic Other endocrine disorders (1 source) Testicular hypofunction; Translations: [Hypogonadism in male] Onset: 6 Chronic Other gastrointestinal disorders (1 source) Diarrhea; Translations: [Diarrhea, unspecified] Episodic Other gastrointestinal disorders (1 source) Occult blood in stools; Translations: [Other fecal abnormalities] 02-09-2023 Episodic Other nervous system disorders (1 source) Chronic pain; Translations: [Other chronic pain] Chronic Other nervous system disorders (2 sources) Chronic pain syndrome; Translations: [Chronic pain syndrome] Chronic Other non-traumatic joint disorders (2 sources) Bilateral chronic pain of upper limbs; Translations: [Pain in right shoulder] Episodic Other non-traumatic joint disorders (1 source) Shoulder pain; Translations: [Pain in right shoulder] Episodic Other non-traumatic joint disorders (2 sources) Bilateral wrist pain; Translations: [Pain in right wrist] Episodic Other non-traumatic joint disorders (1 source) Chronic pain of left upper limb; Translations: [Pain in left wrist] Episodic Other nutritional; endocrine; and metabolic disorders (1 source) Weight loss; Translations: [Abnormal weight loss] Episodic Other screening for suspected conditions (not mental disorders or infectious disease) (2 sources) Patient encounter status; Translations: [Encounter for screening for malignant neoplasm of colon] Episodic Other upper respiratory disease (20 sources) Seasonal allergy; Translations: [Other seasonal allergic rhinitis] Onset: 6 10-27-2015 Chronic Residual codes; unclassified (1 source) Memory impairment; Translations: [Other amnesia] 02-05-2023 Episodic Spondylosis; intervertebral disc disorders; other back problems (20 sources) Cervical spondylosis without myelopathy; Translations: [Spondylosis without myelopathy or radiculopathy, cervical region] Onset: 0 04-19-2020 Chronic Viral infection (6 sources) Disease caused by 2019-nCoV; Translations: [COVID-19] Episodic Past or Other Problems Problem Classification Problem Date Documented Da te Episodic/Chronic Diseases of mouth; excluding dental (20 sources) Lesion of tongue; Translations: [Other diseases of tongue] Onset: 10-27-2019 10-27-2019 Episodic Miscellaneous mental health disorders (20 sources) Acute insomnia; Translations: [Adjustment insomnia] Onset: 10-27-2015 10-27-2015 Episodic Other connective tissue disease (20 sources) Spasm of cervical paraspinous muscle; Translations: [Other muscle spasm] Onset: 04-19-2020 04-19-2020 Episodic Other non-traumatic joint disorders (1 source) Pain in right wrist; Translations: [Pain in both wrists] Onset: 05-28-2022 Episodic Other non-traumatic joint disorders (1 source) Pain in left wrist; Translations: [Pain in both wrists] Onset: 05-28-2022 Episodic Spondylosis; intervertebral disc disorders; other back problems (20 sources) Spinal stenosis in cervical region; Translations: [Spinal stenosis, cervical region] Onset: 04-12-2020 Episodic Results Test Name Value Interpretation Reference Range Facil ity Vital Signs Date Time Vital Sign Value Performing Clinician Boy calderon 02-05-2023 08:32-0400 Body weight 77.56 kg Angela Solorio APRN.CNP Work Phone: [facility] 02-05-2023 08:32-0400 Diastolic blood pressure 82 mm[Hg] Angela Solorio APRN.CNP Work Phone: [facility] 02-05-2023 08:32-0400 Heart rate 74 /min Angela Knoble CIGARETTE EXAMINER.MAGENTO DEVELOPER Work Phone: [facility] 02-05-2023 08:32-0400 Respiratory rate 14 /min Angela Tysonoble CIGARETTE EXAMINER.MAGENTO DEVELOPER Work Phone: [facility] 02-05-2023 08:32-0400 Systolic blood pressure 146 mm[Hg] Angela Mehtaoble CIGARETTE EXAMINER.MAGENTO DEVELOPER Work Phone: [facility] 01-29-2023 09:45-0400 Body weight 77.66 kg Marianne Che MD Work Phone: [facility] 01-29-2023 09:45-0400 Diastolic blood pressure 88 mm[Hg] Marianne Che MD Work Phone: [facility] 01-29-2023 09:45-0400 Heart rate 68 /min Marianne Che MD Work Phone: [facility] 01-29-2023 09:45-0400 Respiratory rate 16 /min Marianne Che MD Work Phone: [facility] 01-29-2023 09:45-0400 Systolic blood pressure 148 mm[Hg] Marianne Che MD Work Phone: [facility] 01-08-2023 09:56-0400 Body weight 77.11 kg Angela Solorio CIGARETTE EXAMINER.MAGENTO DEVELOPER Work Phone: [facility] 01-08-2023 09:56-0400 Diastolic blood pressure 90 mm[Hg] Angela Mehtaoble CIGARETTE EXAMINER.MAGENTO DEVELOPER Work Phone: [facility] 01-08-2023 09:56-0400 Heart rate 64 /min Angela Knoble CIGARETTE EXAMINER.MAGENTO DEVELOPER Work Phone: [facility] 01-08-2023 09:56-0400 Respiratory rate 14 /min Angela Tysonoble CIGARETTE EXAMINER.MAGENTO DEVELOPER Work Phone: [facility] 01-08-2023 09:56-0400 Systolic blood pressure 150 mm[Hg] Angela Knoble CIGARETTE EXAMINER.MAGENTO DEVELOPER Work Phone: [facility] 06-04-2022 09:56-0500 Body temperature 98.4 [degF] Domenica Athy PA-C Work Phone: [facility] 06-04-2022 09:56-0500 Body weight 69.4 kg Domenica Athy PA-C Work Phone: [facility] 06-04-2022 09:56-0500 Diastolic blood pressure 84 mm[Hg] Domenica Athy PA-C Work Phone: [facility] 06-04-2022 09:56-0500 Heart rate 52 /min Domenica Athy PA-C Work Phone: [facility] 06-04-2022 09:56-0500 Respiratory rate 18 /min Domenica Athy PA-C Work Phone: [facility] 06-04-2022 09:56-0500 SaO2% (BldA) [Mass fraction] 97 % Domenica Athy PA-C Work Phone: [facility] 06-04-2022 09:56-0500 Systolic blood pressure 148 mm[Hg] Domenica Athy PA-C Work Phone: [facility] 05-14-2022 09:43-0500 Diastolic blood pressure 73 mm[Hg] Ashley Antony MD Work Phone: [facility] 05-14-2022 09:43-0500 Heart rate 43 /min Ashley Antony MD Work Phone: [facility] 05-14-2022 09:43-0500 Systolic blood pressure 130 mm[Hg] Ashley Antony MD Work Phone: [facility] 05-14-2022 09:38-0500 Body height 167.6 cm Ashley Antony MD Work Phone: [facility] 05-14-2022 09:38-0500 Body temperature 97.81 [degF] Ashley Antony MD Work Phone: [facility] 05-14-2022 09:38-0500 Body weight 74.84 kg Ashley Antony MD Work Phone: [facility] 02-06-2022 11:13-0400 Body weight 74.75 kg Marianne Che MD Work Phone: [facility] 02-06-2022 11:13-0400 Diastolic blood pressure 84 mm[Hg] Marianne Che MD Work Phone: [facility] 02-06-2022 11:13-0400 Heart rate 68 /min Marianne Che MD Work Phone: [facility] 02-06-2022 11:13-0400 Respiratory rate 16 /min Marianne Che MD Work Phone: [facility] 02-06-2022 11:13-0400 Systolic blood pressure 126 mm[Hg] Marianne Che MD Work Phone: [facility] Encounters Encounter Date Encounter Type Care Provider Facility Start: 06-04-2023 End: 06-04-2023 ambulatory MARIANNE CHE Facility:[facility] Start: 05-03-2023 ambulatory Marianne ibrahim MD Work Phone: [facility] Procedures Date Procedure Procedure Detail Performing Clinician Start: 04-24-2023 Lipid 1996 panel - S wing or Plasma Marianne Che MD Work Phone: Start: 09-16-2022 Lipid 1996 panel - S wing or Plasma Marianne Che MD Work Phone: Start: 03-11-2022 Mri any jt upper extremity w/o contrast ion Haney MD Work Phone: Start: 02-19-2022 Radex shoulder compl ete minimum 2 views Brett Haney MD Work Phone: Start: 01-31-2022 Adult depression screening assessment Gill Ochoa MA Start: 12-15-2021 Adult depression screening assessment Marianne Che MD Work Phone: Start: 11-27-2021 Mri spinal canal cer vical w/o contrast ion Cruz CIGARETTE EXAMINER.MAGENTO DEVELOPER Work Phone: Start: 06-12-2020 Adult depression screening assessment Marianne Che MD Work Phone: Plan of Treatment Date Care Activity Detail Author Start: 04-24-2028 Lipid 1996 panel - Serum or Plasma Lipid Screening [facility] Start: 09-17-2027 Lipid 1996 panel - Serum or Plasma Lipid Screening [facility] Start: 09-17-2027 LIPID SCREEN LIPID SCREEN [facility] Start: 02-05-2027 LIPID SCREEN LIPID SCREEN [facility] Start: 08-20-2026 Urine microalbumin profile [facility] Start: 04-24-2026 Diabetes Screening Diabetes Screening [facility] Start: 02-15-2026 LIPID SCREEN LIPID SCREEN [facility] Start: 09-16-2025 DIABETES SCREEN DIABETES SCREEN [facility] Start: 09-16-2025 Diabetes Screening Diabetes Screening [facility] Start: 05-14-2025 DIABETES SCREEN DIABETES SCREEN [facility] Start: 02-05-2025 DIABETES SCREEN DIABETES SCREEN [facility] Start: 02-16-2024 DIABETES SCREEN DIABETES SCREEN [facility] Start: 02-06-2024 ANNUAL PCP TEAM CHRONIC DISEASE VISIT ANNUAL PCP TEAM CHRONIC DISEASE VISIT [facility] Start: 02-05-2024 COLORECTAL CANCER SCREENING COLORECTAL CANCER SCREENING [facility] Start: 02-05-2024 FECAL OCCULT BLOOD FECAL OCCULT BLOOD [facility] Start: 01-30-2024 ANNUAL PCP TEAM CHRONIC DISEASE VISIT ANNUAL PCP TEAM CHRONIC DISEASE VISIT [facility] Start: 01-09-2024 ANNUAL PCP TEAM CHRONIC DISEASE VISIT ANNUAL PCP TEAM CHRONIC DISEASE VISIT [facility] Start: 10-13-2023 ANNUAL PCP TEAM CHRONIC DISEASE VISIT ANNUAL PCP TEAM CHRONIC DISEASE VISIT [facility] Start: 09-15-2023 ANNUAL PCP TEAM CHRONIC DISEASE VISIT ANNUAL PCP TEAM CHRONIC DISEASE VISIT [facility] Start: 08-15-2023 ANNUAL PCP TEAM CHRONIC DISEASE VISIT ANNUAL PCP TEAM CHRONIC DISEASE VISIT [facility] Start: 05-01-2023 End: 07-01-2023 Comprehensive metabolic 2000 panel - Serum or Plasma COMP METABOLIC PANEL Lab Routine Hyperlipidemia, mixed Expected: 05/01/2023 (Approximate), Expires: 07/01/2023 [facility] Work Phone: Immunizations Immunization Date Immunization Notes Care Provider Fa cility 01-29-2023 pneumococcal (PCV20) vaccine, 20 valent (PREVNAR 20) Marianne Che MD Work Phone: [facility] 01-29-2023 pneumococcal Conjuga te, unspecified formulation Marianne Che MD Work Phone: [facility] Work Phone: 04-29-2020 influenza, injectabl e, quadrivalent, contains preservative Marianne Che MD Work Phone: [facility] 04-29-2020 influenza virus vaccine, unspecified formulation Marianne Che MD Work Phone: [facility] 04-19-2019 influenza, injectabl e, quadrivalent, contains preservative Marianne Che MD Work Phone: [facility] Work Phone: 04-06-2018 influenza, injectabl e, quadrivalent, contains preservative Marianne Che MD Work Phone: [facility] Work Phone: 03-09-2017 influenza, injectabl e, quadrivalent, contains preservative Marianne Che MD Work Phone: [facility] 08-20-2016 pneumococcal polysaccharide vaccine, 23 valent Marianne Che MD Work Phone: [facility] 08-20-2016 tetanus toxoid, redu germaine diphtheria toxoid, and acellular pertussis vaccine, adsorbed Marianne Che MD Work Phone: [facility] 03-13-2016 influenza, injectabl e, quadrivalent, contains preservative Marianne Che MD Work Phone: [facility] Work Phone: Payers Date Payer Category Payer Medicaid [id number] 2017 Medicaid [facility] [facility] MEDICAID [id number] 2017-Present [phone] [address] [place] [address] Medicaid [id number] 2017 Medicaid [id number] 2017 Medicaid [id number] Social History Date Type Detail Facility Start: 08-29-2021 Tobacco smoking stat us NHIS Occasional tobacco smoker [facility] History of tobacco use Cigarette Smoker [facility] Start: 08-29-2021 End: 10-12-2022 Cigarettes smoked current (pack per day) - Reported 0.3 [facility] Start: 08-29-2021 End: 01-29-2023 Tobacco use and exposure Smokeless tobacco non-user [facility] Start: 08-29-2021 End: 01-29-2023 Alcohol intake Ex-drinker (finding) [facility] Start: 08-23-2021 End: 05-13-2022 History SDOH Alcohol Frequency 1 [facility] Start: 08-23-2021 End: 05-13-2022 History SDOH Alcohol Std Drinks 98 [facility] Start: 12-18-2019 History SDOH Alcohol Comment Sober since 07/2019 [facility] Start: 08-23-2021 End: 05-13-2022 History SDOH Social Connections Living 5 [facility] Start: 08-23-2021 History SDOH Housing Unable to Pay 3 [facility] Start: 08-29-2021 Tobacco Comment Rare smoking. [facility] Start: 1960 Sex Assigned At Not on file [facility] Start: 09-02-2021 End: 02-19-2022 Exposure to SARS-CoV-2 (event) Not sure [facility] Start: 10-20-2021 End: 01-29-2023 Tobacco smoking status NHIS Ex-smoker [facility] Start: 10-20-2021 End: 01-29-2023 Tobacco Comment Stopped smoking 05/23/21. [facility] History of tobacco use Current smoker [facility] Start: 05-13-2022 History SDOH Alcohol Std Drinks 0 [facility] Start: 05-13-2022 History SDOH Social Connections Membership 2 [facility] Start: 05-13-2022 End: 10-12-2022 Social connection and isolation panel [facility] Do you belong to any clubs or organizations such as christianity groups, unions, fraternal or athletic groups, or school groups? No [facility] Are you now , , , , never or living with a partner? Refused [facility] How often to you hav e a drink containing alcohol? Never [facility] How many standard dr inks containing alcohol do you have on a typical day? Patient does not drink [facility] Do you feel stress - tense, restless, nervous, or anxious, or unable to sleep at night because your mind is troubled all the time - these days [OSQ] Very much [facility] (I/We) worried wheth er (my/our) food would run out before (I/we) got money to buy more. DK or Refused [facility] Start: 08-23-2021 Sexual orientation Heterosexual (jeanie mansfield) [facility] Medical Equipment Procedure Code Equipment Code Equipment Origin al Text Equipment Identifier Dates 1 Each every 2 weeks. Start: 12-02-2020 End: 09-14-2022 Clinical Notes 09-22-2021 to 06-04-2023 Telephone Encounter - Kassidy Frank Ma - 05/03/2023 1:10 PM ESTTelephone Encounter - Jennifer Higgins Ma - 04/20/2023 2:57 PM ESTTelephone Encounter - Lindsey Russo Ma - 02/15/2023 10:44 AM EDT Note Date & Type Note Facility 06-04-2023 Note HNO ID: [id number] Author: Marianne Che MD Service: ? Author Type: Physician Type: Progress Notes Filed: 06/04/2023 10:35 AM Note Text: Chief Complaint Patient presents with: F/U 3 Month HPI Margy Corral is a 62 year old male who presents here today for 3 month follow up. Declined Flu and covid vaccine. No bowel, gi, or urinary issues. Taking Flomax 0.4 mg daily. Has been treated with Flagyl and Omnicef in past for Colitis. GERD: Stable on prilosec 20 mg daily. ED: Uses Viagra 100 mg PRN. Lipid/glucose: Denies watching his diet or getting any exercise. Taking Zocor 40 mg daily. Depression/IRIS: Taking Cymbalta 120 mg, trazodone at bedtime, still feels not fully controlled. HTN: Denies checking Bp at home, no chest pains, dizziness, or SOB. Taking Lisinopril-HCTZ 10-12.5 mg daily and potassium 10 mEq 1 pill QID. Hypogonadism: Stable with Depo-testosterone injections, 200 mg, 1 cc every 2 weeks. Asthma: Stable; using Singulair 10 mg daily, Breo Ellipita and Albuterol inhalers. Insomnia: Taking Trazodone 150 mg daily at bedtime. Gout: Stable; taking indomethacin 50 mg TID. Pain: Chronic pain b/l wrists, shoulders and back. Pt on current regimen of Cymbalta 90 mg (60+30), Gabapentin 600 mg TID and Tizanidine 4 mg 1 tab po at bedtime prn. Pt has previously seen Rheumatology, Pain Mgmt, Ortho and Neuro. Has taken Prednisone in the past which helped his pain but made him feel jittery. He does use recreational marijuana through the day, he vaps or dabs it. Does not have a medical marijuana card. He feels that his positive iFOBT was due to hemorrhoids, declines further evaluation. Past medical history, appointments, medications, allergies reviewed. Previous Medical History PAST MEDICAL HISTORY Diagnosis Date Essential hypertension Gout Hyperlipidemia Hypogonadism in male 10/27/2015 Mild intermittent asthma without complication Previous Surgical History PAST SURGICAL HISTORY Procedure Laterality Date APPENDECTOMY LAPAROSCOPY SURG CHOLECYSTECTOMY Cholecystectomy, lap PAST SURGICAL HISTORY OF Bilateral OD 04/03/2020, OS - 02/06/2020 TONSILLECTOMY AND ADENOIDECTOMY VASECTOMY UNI/BI SPX W/POSTOP SEMEN EXAMS Family History FAMILY HISTORY Problem Relation Age of Onset Stroke Mother other (rheumatoid arthritis) Maternal Grandmother Colon Cancer Maternal Grandfather Colon Cancer Paternal Grandfather Brain Cancer Son 23 Aneurysm Son Patient Allergies ALLERGIES Allergen Reactions Cycline-250 Swelling All family of cyclines Sumycin [Tetracycli* Swelling Current Medications Current Outpatient Medications on File Prior to Visit Medication Sig traZODone (DESYREL) 150 mg tablet Take 1 tablet by mouth daily at bedtime. anastrozole (ARIMIDEX) 1 mg tablet Take 1 tablet by mouth one time a week. albuterol HFA (VENTOLIN HFA) 90 mcg/actuation inhaler Inhale 2 Puffs as instructed every 4 hours as needed. gabapentin (NEURONTIN) 600 mg tablet Take 1 tablet by mouth three times a day for 90 days. fluticasone-vilanterol (BREO ELLIPTA) 100-25 mcg/dose inhaler Inhale 1 Inhalation as instructed once daily. tiZANidine (ZANAFLEX) 4 mg tablet Take 1 tablet by mouth at bedtime as needed (muscle spasms). DULoxetine (CYMBALTA) 60 mg capsule Take 1 capsule by mouth twice daily. indomethacin (INDOCIN) 50 mg capsule Take 1 capsule by mouth three times daily with meals. testosterone cypionate (DEPO-TESTOSTERONE) 200 mg/mL injection Inject 1.0 cc every 2 weeks Omeprazole Magnesium (PRILOSEC OTC) 20 mg tablet Take 1 tablet by mouth daily before breakfast. 1/2 hr before meal. tamsulosin (FLOMAX) 0.4 mg Take 1 capsule by mouth daily at bedtime. metroNIDAZOLE (FLAGYL) 500 mg tablet Take 1 tablet by mouth three times daily. cefdinir (OMNICEF) 300 mg capsule Take 1 capsule by mouth twice daily. potassium chloride SR (MICRO-K) 10 mEq CR capsule Take 1 capsule by mouth four times daily. Syringe with Needle, Safety 3 mL 22 gauge x 1 syrg 1 Each every 2 weeks. lisinopril-hydroCHLOROthiazide (ZESTORETIC) 10-12.5 mg per tablet Take 1 tablet by mouth every morning. sildenafil (VIAGRA) 100 mg tablet Take one pill as needed 30-60 minutes prior to sexual activity simvastatin (ZOCOR) 40 mg tablet Take 1 tablet by mouth daily at bedtime. probenecid 500 mg tablet Take 1 tablet by mouth twice daily. montelukast (SINGULAIR) 10 mg tablet Take 1 tablet by mouth daily at bedtime. colchicine 0.6 mg tablet Take 2 tabs, wait 1 hour then take 1 tab. Take 1 tab daily after No current facility-administered medications on file prior to visit. Social History Social History Tobacco Use Smoking status: Former Packs/day: 0.30 Years: 30.00 Additional pack years: 0.00 Total pack years: 9.00 Types: Cigarettes Smokeless tobacco: Never Tobacco comments: Stopped smoking 05/23/21. Vaping Use Vaping Use: Never used Substance Use Topics Alcoho (more content not included)... [facility] 05-03-2023 Miscellaneous Notes Pt notified of this via [employer]. Testosterone was approved till Apr 2024. See note 11/9/23. Kassidy Frank Ma documented in this encounter [facility] 04-20-2023 Miscellaneous Notes PA approved till 04/2024. Faxed approval to pharmacy and patient was notified left voicemaramakrishna Higgins Ma Received PA request from pharmacy Prior Authorization has been completed online at [employer] for Depo Testosterone, will await response. [id number] Please keep encounter open until final decision has been received and documented from insurance company. Jennifer Higgins MA documented in this encounter [facility] 04-07-2023 Miscellaneous Notes The following approved medication requests have been transmitted electronically. Requested Prescriptions Pending Prescriptions Disp Refills traZODone (DESYREL) 150 mg tablet 30 tablet 11 Sig: Take 1 tablet by mouth daily at bedtime. anastrozole (ARIMIDEX) 1 mg tablet 12 tablet 3 Sig: Take 1 tablet by mouth one time a week. albuterol HFA (VENTOLIN HFA) 90 mcg/actuation inhaler 18 g 5 Sig: Inhale 2 Puffs as instructed every 4 hours as needed. Jonny Flores APRN.CNP Patient has been identified by name and date of : Yes, Patient phones for refill(s): Requested Prescriptions Pending Prescriptions Disp Refills traZODone (DESYREL) 150 mg tablet 30 tablet 11 Sig: Take 1 tablet by mouth daily at bedtime. anastrozole (ARIMIDEX) 1 mg tablet 12 tablet 3 Sig: Take 1 tablet by mouth one time a week. albuterol HFA (VENTOLIN HFA) 90 mcg/actuation inhaler 18 g 5 Sig: Inhale 2 Puffs as instructed every 4 hours as needed. Date of last office visit in primary care: 02/05/2023 Date of next office visit in primary care: 04/30/2023 Please advise. Thank you. Brionna Leavitt LPN. documented in this encounter [facility] 02-15-2023 Miscellaneous Notes Source MDx message sent to pt notifying him of US results. Lindsey Russo Ma Please let patient know US shows lymph nodes are palpable but not abnormally enlarged according to US. documented in this encounter [facility] 02-12-2023 Note HNO ID: [id number] Author: Radha Bejarano TECHNOLOGIST Service: ? Author Type: Technologist Type: Progress Notes Filed: 02/12/2023 9:28 AM Note Text: Radiology Service Progress Note PATIENT NAME: Margy Corral DATE OF SERVICE: February 12, 2023 TIME: 9:28 AM PATIENT IDENTITY VERIFICATION COMPLETED USING TWO (2) IDENTIFIERS: Name and Date of confirmed by patient verbally. FALL SCREENING: Has the patient had 2 falls in the last year or 1 fall with injury or currently using an Ambulatory Assistive Device (Walker, Cane, Wheelchair, Crutches, etc.)? No PATIENT GENDER DATA: Male PATIENT RELEVANT IMPLANT DATA REVIEWED: Yes RADIOLOGY DEPARTMENT: Ultrasound PERIPHERAL IV DATA: Not applicable SIGNED BY: TECHNOLOGIST Tabitha February 12, 2023 9:28 AM [facility] 02-12-2023 History of Present illness Narrative Radiology Service Progress Note PATIENT NAME: Margy Corral DATE OF SERVICE: February 12, 2023 TIME: 9:28 AM PATIENT IDENTITY VERIFICATION COMPLETED USING TWO (2) IDENTIFIERS: Name and Date of confirmed by patient verbally. FALL SCREENING: Has the patient had 2 falls in the last year or 1 fall with injury or currently using an Ambulatory Assistive Device (Walker, Cane, Wheelchair, Crutches, etc.)? No PATIENT GENDER DATA: Male PATIENT RELEVANT IMPLANT DATA REVIEWED: Yes RADIOLOGY DEPARTMENT: Ultrasound PERIPHERAL IV DATA: Not applicable SIGNED BY: Radha Bejarano TECHNOLOGIST February 12, 2023 9:28 AM documented in this encounter [facility] 02-09-2023 Miscellaneous Notes Pt was notified of results & need for colonoscopy, pt states he'll have to think about it. Pt notified the importance of determining cause of blood but declined scheduling at this time. Pt encouraged to call back to schedule. Maryellen Randall LPN Please let the patient know that his stool sample was positive. He needs a colonoscopy to further evaluate. I placed a referral to general surgery. Jonny Flores APRN.WENDY documented in this encounter [facility] 02-05-2023 Note HNO ID: [id number] Author: Angela Solorio APRN.CNP Service: ? Author Type: Nurse Practitioner Type: Progress Notes Filed: 02/05/2023 8:52 AM Note Text: Chief Complaint Patient presents with: Follow Up: Lump on neck HPI Margy Corral is a 62 year old male who presents here today for Above Complaints.. Patient presents for follow up. Patient was seen end of December for a large lump in his left neck and was diagnosed with cervical adenitis. Patient continues to have lymph node enlargement on the left side. Patient also reports concerns regarding his memory. Patient reports he can be in the middle of doing something like making pancakes and forget what the next step is. Past medical history, appointments, medications, allergies reviewed. Previous Medical History PAST MEDICAL HISTORY Diagnosis Date Essential hypertension Gout Hyperlipidemia Hypogonadism in male 10/27/2015 Mild intermittent asthma without complication Previous Surgical History PAST SURGICAL HISTORY Procedure Laterality Date APPENDECTOMY LAPAROSCOPY SURG CHOLECYSTECTOMY Cholecystectomy, lap PAST SURGICAL HISTORY OF Bilateral OD 04/03/2020, OS - 02/06/2020 TONSILLECTOMY AND ADENOIDECTOMY VASECTOMY UNI/BI SPX W/POSTOP SEMEN EXAMS Family History FAMILY HISTORY Problem Relation Age of Onset Stroke Mother other (rheumatoid arthritis) Maternal Grandmother Colon Cancer Maternal Grandfather Colon Cancer Paternal Grandfather Brain Cancer Son 23 Aneurysm Son Patient Allergies ALLERGIES Allergen Reactions Cycline-250 Swelling All family of cyclines Sumycin [Tetracycli* Swelling Current Medications Current Outpatient Medications on File Prior to Visit Medication Sig DULoxetine (CYMBALTA) 60 mg capsule Take 1 capsule by mouth twice daily. indomethacin (INDOCIN) 50 mg capsule Take 1 capsule by mouth three times daily with meals. testosterone cypionate (DEPO-TESTOSTERONE) 200 mg/mL injection Inject 1.0 cc every 2 weeks gabapentin (NEURONTIN) 600 mg tablet Take 1 tablet by mouth three times daily for 90 days. Omeprazole Magnesium (PRILOSEC OTC) 20 mg tablet Take 1 tablet by mouth daily before breakfast. 1/2 hr before meal. albuterol HFA (VENTOLIN HFA) 90 mcg/actuation inhaler Inhale 2 Puffs as instructed every 4 hours as needed. tamsulosin (FLOMAX) 0.4 mg Take 1 capsule by mouth daily at bedtime. metroNIDAZOLE (FLAGYL) 500 mg tablet Take 1 tablet by mouth three times daily. cefdinir (OMNICEF) 300 mg capsule Take 1 capsule by mouth twice daily. potassium chloride SR (MICRO-K) 10 mEq CR capsule Take 1 capsule by mouth four times daily. Syringe with Needle, Safety 3 mL 22 gauge x 1 syrg 1 Each every 2 weeks. lisinopril-hydroCHLOROthiazide (ZESTORETIC) 10-12.5 mg per tablet Take 1 tablet by mouth every morning. tiZANidine (ZANAFLEX) 4 mg tablet Take 1 tablet by mouth at bedtime as needed (muscle spasms). sildenafil (VIAGRA) 100 mg tablet Take one pill as needed 30-60 minutes prior to sexual activity simvastatin (ZOCOR) 40 mg tablet Take 1 tablet by mouth daily at bedtime. probenecid 500 mg tablet Take 1 tablet by mouth twice daily. montelukast (SINGULAIR) 10 mg tablet Take 1 tablet by mouth daily at bedtime. traZODone (DESYREL) 150 mg tablet Take 1 tablet by mouth daily at bedtime. anastrozole (ARIMIDEX) 1 mg tablet Take 1 tablet by mouth one time a week. colchicine 0.6 mg tablet Take 2 tabs, wait 1 hour then take 1 tab. Take 1 tab daily after fluticasone-vilanterol (BREO ELLIPTA) 100-25 mcg/dose inhaler Inhale 1 Inhalation as instructed once daily. No current facility-administered medications on file prior to visit. Social History Social History Tobacco Use Smoking status: Former Packs/day: 0.30 Years: 30.00 Additional pack years: 0.00 Total pack years: 9.00 Types: Cigarettes Smokeless tobacco: Never Tobacco comments: Stopped smoking 05/23/21. Vaping Use Vaping Use: Never used Substance Use Topics Alcohol use: Not Currently Comment: Sober since 07/2019 Drug use: Yes Comment: sporadic marijuana Review of Symptoms REVIEW OF SYSTEMS SEE HPI EXAM: BP 146/82 Pulse 74 Resp 14 Wt 77.6 kg (171 lb) BMI 27.60 kg/m? General Appearance: Well appearing, alert, in no acute distress, well-hydrated, well nourished.. Neck: Positive findings: posterior cervical adenopathy. Health Maintenance List COLORECTAL CANCER SCREENING Never done SHINGRIX VACCINE(1 of 2) Never done PROSTATE CANCER SCREENING DISCUSSION due on 12/15/2020 BP CONTROLLED (<130/80) due on 08/09/2021 COVID-19 VACCINE(5 - Pfizer series) due on 01/27/2022 INFLUENZA(1) due on 02/05/2023 ANNUAL PCP TEAM CHRONIC DISEASE VISIT due on 01/30/2024 DIABETES SCREEN due on 09/16/2025 DTAP,TDAP,TD(2 - Td or Tdap) due on 08/20/2026 LIPID SCREEN due on 09/17/2027 SPIROMETRY Completed DEPRESSION ASSESSMENT Completed HEPATITIS C SCREENING Completed HIV SCREENING Compl (more content not included)... [facility] 02-05-2023 History of Present illness Narrative Chief Complaint Patient presents with: Follow Up: Lump on neck HPI Margy Corral is a 62 year old male who presents here today for Above Complaints.. Patient presents for follow up. Patient was seen end of December for a large lump in his left neck and was diagnosed with cervical adenitis. Patient continues to have lymph node enlargement on the left side. Patient also reports concerns regarding his memory. Patient reports he can be in the middle of doing something like making pancakes and forget what the next step is. Past medical history, appointments, medications, allergies reviewed. Previous Medical History PAST MEDICAL HISTORY Diagnosis Date Essential hypertension Gout Hyperlipidemia Hypogonadism in male 10/27/2015 Mild intermittent asthma without complication Previous Surgical History PAST SURGICAL HISTORY Procedure Laterality Date APPENDECTOMY LAPAROSCOPY SURG CHOLECYSTECTOMY Cholecystectomy, lap PAST SURGICAL HISTORY OF Bilateral OD 04/03/2020, OS - 02/06/2020 TONSILLECTOMY & ADENOIDECTOMY <AGE 12 VASECTOMY UNI/BI SPX W/POSTOP SEMEN EXAMS Family History FAMILY HISTORY Problem Relation Age of Onset Stroke Mother other (rheumatoid arthritis) Maternal Grandmother Colon Cancer Maternal Grandfather Colon Cancer Paternal Grandfather Brain Cancer Son 23 Aneurysm Son Patient Allergies ALLERGIES Allergen Reactions Cycline-250 Swelling All family of cyclines Sumycin [Tetracycli* Swelling Current Medications Current Outpatient Medications on File Prior to Visit Medication Sig DULoxetine (CYMBALTA) 60 mg capsule Take 1 capsule by mouth twice daily. indomethacin (INDOCIN) 50 mg capsule Take 1 capsule by mouth three times daily with meals. testosterone cypionate (DEPO-TESTOSTERONE) 200 mg/mL injection Inject 1.0 cc every 2 weeks gabapentin (NEURONTIN) 600 mg tablet Take 1 tablet by mouth three times daily for 90 days. Omeprazole Magnesium (PRILOSEC OTC) 20 mg tablet Take 1 tablet by mouth daily before breakfast. 1/2 hr before meal. albuterol HFA (VENTOLIN HFA) 90 mcg/actuation inhaler Inhale 2 Puffs as instructed every 4 hours as needed. tamsulosin (FLOMAX) 0.4 mg Take 1 capsule by mouth daily at bedtime. metroNIDAZOLE (FLAGYL) 500 mg tablet Take 1 tablet by mouth three times daily. cefdinir (OMNICEF) 300 mg capsule Take 1 capsule by mouth twice daily. potassium chloride SR (MICRO-K) 10 mEq CR capsule Take 1 capsule by mouth four times daily. Syringe with Needle, Safety 3 mL 22 gauge x 1 syrg 1 Each every 2 weeks. lisinopril-hydroCHLOROthiazide (ZESTORETIC) 10-12.5 mg per tablet Take 1 tablet by mouth every morning. tiZANidine (ZANAFLEX) 4 mg tablet Take 1 tablet by mouth at bedtime as needed (muscle spasms). sildenafil (VIAGRA) 100 mg tablet Take one pill as needed 30-60 minutes prior to sexual activity simvastatin (ZOCOR) 40 mg tablet Take 1 tablet by mouth daily at bedtime. probenecid 500 mg tablet Take 1 tablet by mouth twice daily. montelukast (SINGULAIR) 10 mg tablet Take 1 tablet by mouth daily at bedtime. traZODone (DESYREL) 150 mg tablet Take 1 tablet by mouth daily at bedtime. anastrozole (ARIMIDEX) 1 mg tablet Take 1 tablet by mouth one time a week. colchicine 0.6 mg tablet Take 2 tabs, wait 1 hour then take 1 tab. Take 1 tab daily after fluticasone-vilanterol (BREO ELLIPTA) 100-25 mcg/dose inhaler Inhale 1 Inhalation as instructed once daily. No current facility-administered medications on file prior to visit. Social History Social History Tobacco Use Smoking status: Former Packs/day: 0.30 Years: 30.00 Additional pack years: 0.00 Total pack years: 9.00 Types: Cigarettes Smokeless tobacco: Never Tobacco comments: Stopped smoking 05/23/21. Vaping Use Vaping Use: Never used Substance Use Topics Alcohol use: Not Currently Comment: Sober since 07/2019 Drug use: Yes Comment: sporadic marijuana Review of Symptoms REVIEW OF SYSTEMS SEE HPI EXAM: BP 146/82 Pulse 74 Resp 14 Wt 77.6 kg (171 lb) BMI 27.60 kg/m General Appearance: Well appearing, alert, in no acute distress, well-hydrated, well nourished.. Neck: Positive findings: posterior cervical adenopathy. Health Maintenance List COLORECTAL CANCER SCREENING Never done SHINGRIX VACCINE(1 of 2) Never done PROSTATE CANCER SCREENING DISCUSSION due on 12/15/2020 BP CONTROLLED (<130/80) due on 08/09/2021 COVID-19 VACCINE(5 - Pfizer series) due on 01/27/2022 INFLUENZA(1) due on 02/05/2023 ANNUAL PCP TEAM CHRONIC DISEASE VISIT due on 01/30/2024 DIABETES SCREEN due on 09/16/2025 DTAP,TDAP,TD(2 - Td or Tdap) due on 08/20/2026 LIPID SCREEN due on 09/17/2027 SPIROMETRY Completed DEPRESSION ASSESSMENT Completed HEPATITIS C SCREENING Completed HIV SCREENING Completed PNEUMOCOCCAL Completed MINI-MENTAL STATE EXAMINATION (MMSE) Make the patient comfortable and establish rapport. Ask questions in the order listed. Total possible score is 30. ORIENTATION 1. What is the (year) (season) (date) (day) (month)? Max score=5 Patient's score=5 2. Where are we? (state) (county) (town or city) (hospital) (floor)? Max score=5 Patient's score=5 REGISTRATION Ask the patient if you may test his/her memory. Then say the names of 3 unrelated objects, clearly and slowly, about one second for each (eg, apple, table, emir). After you have said all 3, ask him/her to repeat them. This first repetition determines the score(0-3), but keep saying them until he/she can repeat all 3, up to 6 trials. Max score=3 Patient's score=3 ATTENTION AND CALCULATION Ask the patient to begin with 100 and count backwards by 7. Stop after 5 subtractions (93, 86, 79, 72, 65). Score the total number of correct answers. If the patient cannot or will not perform the serial 7s task, ask him/her to spell the word WORLD backwards. The score is the number of letters in the correct order (eg, DLROW=5; DLRW=4; DLORW, DLW=3; OW=2; DRLWO=1). Max score=5 Patient's score=5 RECALL Ask the patient to recall the 3 items repeated above (eg, apple, table, emir). Max score=3 Patient's score=1 LANGUAGE Naming: Show the patient a wristwatch and ask him/her what it is. Repeat for pencil. Max score=2 Patient's score=2 Repetition: Ask the patient to repeat the phrase No ifs, ands, or buts: after you. Max score=1 Patient's score=1 3-Stage Command: Give the patient a piece of blank paper and ask him/her to take a piece of paper in your right hand, fold it in half, put it on the floor. Score 1 point for each part correctly executed. Max score=3 Patient's score=3 Reading: On a blank piece of paper, print the sentence CLOSE YOUR EYES in letters large enough for the patient to see clearly. Ask him/her to read it and do what it says. Score 1 point only if he/she actually closes his/her eyes. Max score=1 Patient's score=1 Writing: Give the patient a blank piece of paper and ask him/her to write a sentence. Do not dictate a sentence; it is to be written spontaneously. It must contain a subject and verb and be sensible. Correct grammar and punctuation are not necessary. Max score=1 Patient's score=1 Copying: Ask the patient to copy the figure of intersecting pentagons exactly as it is. All 10 angles must be present and 2 must intersect to form a 4-sided figure to score 1 point. Tremor and rotation are ignored. Max score=1 Patient's score=1 MAXIMUM TOTAL SCORE = 30 TOTAL SCORE = 28/30 Suggested guideline for determining the severity of cognitive impairment: Mild: MMSE>21 Moderate: MMSE 10-20 Severe: MMSE<9 Expected decline in MMSE scores in untreated mild to moderate Alzheimer's patient is 2 to 4 points per year. *Adapted from Folstein et al.1 and Juli and Folstein2. (c) 1974, 1997 [employer] Used with permission. References: 1. Folstein MF, Folstein SE, Yue AK. Mini-Mental State: a practical method for grading the cognitive state of patients for the clinician. J Psychiatr Res. 1975; 12:189-198. 2. JR Juli, Celia MF, Mini-Mental State Examination (MMSE). Psychopharm Bull. 1988;24:689-692. 3. Clemente JT, Daniela FJ, Laurel RD, Shakir A, Werner F. Neuropsychological function in Alzheimer's disease: pattern of impairment and rates of progression. Arch Neurol. 1988;45:263-268. 4. Linda NEVILLE, Tito B, Calvin S-P, Song FIERRO. Predictors of cognitive and functional progression in patients with probable Alzheimer's disease. Neurology. 1992;42:1456-2590. ASSESSMENT/PLAN: 1. Cervical radiculopathy - ICD9: 723.4, ICD10: M54.12 (primary diagnosis) - US EXTREMITY MASS/FLUID COLLECTION LEFT 2. Memory change - ICD9: 780.93, ICD10: R41.3 - CONSULT TO NEUROLOGY Anglea Solorio APRN.MAGENTO DEVELOPER documented in this encounter [facility] 01-29-2023 Note HNO ID: [id number] Author: Marianne Che MD Service: ? Author Type: Physician Type: Progress Notes Filed: 01/29/2023 10:45 AM Note Text: Chief Complaint Patient presents with: Follow Up HPI Margy Corral is a 62 year old male who presents here today for a 3 month follow up. Pt here today for his 3 month follow up. Was seen acutely by Angela Solorio CNP due to cervical adenitis on 01/04/23. Was referred to [facility] ED started on abx and had f/u on 01/08/23. At f/u visit pt reported feeling better but was started on a Zpak. It has reduced in size and still occ gets a little pain from it. Has follow up next week with Angela Solorio next week. On current regimen of Flomax 0.4 mg once daily. ED: Uses Viagra 100 mg prn. GERD: Stable with use of Prilosec 20 mg once daily. Colitis: Stable at this time, no issues. Was previously admitted earlier this year due to flare up. Previously treated with Flagyl 500 mg TID and Omnicef 300 mg bid. HTN: Denies checking BP at home or having symptoms of chest pain, sob or dizziness. On current regimen of Lisinopril-HCTZ 10-12.5 mg once daily and Potassium 10 meEq 1 tab po QID. Hypogonadism: Stable on current regimen of Depo-Testosterone 200 mg, 1 cc every two weeks. His gives him the injections. Depression/IRIS: At previous VV pt's Cymbalta was increased to 90 mg (60+30) due to pt not noticing much improvement on the 60 mg dosage. He takes it in the morning. He feels it does well for him until about the afternoon he poops out , mood worsens. He feels really tired and has a little appetite most days. He has had some memory changes, he stated he was making pancakes and walked about forgot he was making food. The only reason he remembered was he walked back into the kitchen and saw it but took him several minutes to process that he needed to flip it. He states he forgets what he is talking about within minutes of talking about it. He doesn't feel comfortable when he has to drive on the highways, he does fine on the local roads. He states he gets frustrated and then he feels like he swerves too much when he is on the road. He denies any vision issues, just got new glasses. He has used Wellbutrin in the past to quit smoking which did help him. Lipid/Glucose: Denies watching his diet or exercising. On current regimen of Zocor 40 mg daily. Tolerating well. Asthma: Previous smoker, quit a year ago. On current regimen of Singulair 10 mg once daily, Breo Ellipta inhaler and Albuterol inhaler prn. Insomnia: Stable on current regimen of Trazodone 150 mg at bedtime. Gout: Stable on current regimen of Indomethacin 50 mg 1 caps po TID. Has previously taken Colchicine but felt it didn't work well. Pain: Chronic pain b/l wrists, shoulders and back. Pt on current regimen of Cymbalta 90 mg (60+30), Gabapentin 600 mg TID and Tizanidine 4 mg 1 tab po at bedtime prn. Pt has previously seen Rheumatology, Pain Mgmt, Ortho and Neuro. Has taken Prednisone in the past which helped his pain but made him feel jittery. He does use recreational marijuana through the day, he vaps or dabs it. Does not have a medical marijuana card. Past medical history, appointments, medications, allergies reviewed. Previous Medical History PAST MEDICAL HISTORY Diagnosis Date Essential hypertension Gout Hyperlipidemia Hypogonadism in male 10/27/2015 Mild intermittent asthma without complication Previous Surgical History PAST SURGICAL HISTORY Procedure Laterality Date APPENDECTOMY LAPAROSCOPY SURG CHOLECYSTECTOMY Cholecystectomy, lap PAST SURGICAL HISTORY OF Bilateral OD 04/03/2020, OS - 02/06/2020 TONSILLECTOMY AND ADENOIDECTOMY VASECTOMY UNI/BI SPX W/POSTOP SEMEN EXAMS Family History FAMILY HISTORY Problem Relation Age of Onset Stroke Mother other (rheumatoid arthritis) Maternal Grandmother Colon Cancer Maternal Grandfather Colon Cancer Paternal Grandfather Brain Cancer Son 23 Aneurysm Son Patient Allergies ALLERGIES Allergen Reactions Cycline-250 Swelling All family of cyclines Sumycin [Tetracycli* Swelling Current Medications Current Outpatient Medications on File Prior to Visit Medication Sig indomethacin (INDOCIN) 50 mg capsule Take 1 capsule by mouth three times daily with meals. testosterone cypionate (DEPO-TESTOSTERONE) 200 mg/mL injection Inject 1.0 cc every 2 weeks gabapentin (NEURONTIN) 600 mg tablet Take 1 tablet by mouth three times daily for 90 days. DULoxetine (CYMBALTA) 30 mg capsule Take 1 capsule by mouth once daily. Take along with 60 mg capsule for total daily dose of 90 mg Omeprazole Magnesium (PRILOSEC OTC) 20 mg tablet Take 1 tablet by mouth daily before breakfast. 1/2 hr before meal. albuterol HFA (VENTOLIN HFA) 90 mcg/actuation inhaler Inhale 2 Puffs as instructed every 4 hours as needed. tamsulosin (FLOMAX) 0.4 mg Take 1 capsule by mouth daily at bedtime. metroNIDAZOLE (FLAGYL) 500 mg tabl (more content not included)... [facility] 01-29-2023 History of Present illness Narrative Chief Complaint Patient presents with: Follow Up HPI Margy Corral is a 62 year old male who presents here today for a 3 month follow up. Pt here today for his 3 month follow up. Was seen acutely by Angela Solorio CNP due to cervical adenitis on 01/04/23. Was referred to [facility] ED started on abx and had f/u on 01/08/23. At f/u visit pt reported feeling better but was started on a Zpak. It has reduced in size and still occ gets a little pain from it. Has follow up next week with Angela Solorio next week. On current regimen of Flomax 0.4 mg once daily. ED: Uses Viagra 100 mg prn. GERD: Stable with use of Prilosec 20 mg once daily. Colitis: Stable at this time, no issues. Was previously admitted earlier this year due to flare up. Previously treated with Flagyl 500 mg TID and Omnicef 300 mg bid. HTN: Denies checking BP at home or having symptoms of chest pain, sob or dizziness. On current regimen of Lisinopril-HCTZ 10-12.5 mg once daily and Potassium 10 meEq 1 tab po QID. Hypogonadism: Stable on current regimen of Depo-Testosterone 200 mg, 1 cc every two weeks. His gives him the injections. Depression/IRIS: At previous VV pt's Cymbalta was increased to 90 mg (60+30) due to pt not noticing much improvement on the 60 mg dosage. He takes it in the morning. He feels it does well for him until about the afternoon he poops out , mood worsens. He feels really tired and has a little appetite most days. He has had some memory changes, he stated he was making pancakes and walked about forgot he was making food. The only reason he remembered was he walked back into the kitchen and saw it but took him several minutes to process that he needed to flip it. He states he forgets what he is talking about within minutes of talking about it. He doesn't feel comfortable when he has to drive on the highways, he does fine on the local roads. He states he gets frustrated and then he feels like he swerves too much when he is on the road. He denies any vision issues, just got new glasses. He has used Wellbutrin in the past to quit smoking which did help him. Lipid/Glucose: Denies watching his diet or exercising. On current regimen of Zocor 40 mg daily. Tolerating well. Asthma: Previous smoker, quit a year ago. On current regimen of Singulair 10 mg once daily, Breo Ellipta inhaler and Albuterol inhaler prn. Insomnia: Stable on current regimen of Trazodone 150 mg at bedtime. Gout: Stable on current regimen of Indomethacin 50 mg 1 caps po TID. Has previously taken Colchicine but felt it didn't work well. Pain: Chronic pain b/l wrists, shoulders and back. Pt on current regimen of Cymbalta 90 mg (60+30), Gabapentin 600 mg TID and Tizanidine 4 mg 1 tab po at bedtime prn. Pt has previously seen Rheumatology, Pain Mgmt, Ortho and Neuro. Has taken Prednisone in the past which helped his pain but made him feel jittery. He does use recreational marijuana through the day, he vaps or dabs it. Does not have a medical marijuana card. Past medical history, appointments, medications, allergies reviewed. Previous Medical History PAST MEDICAL HISTORY Diagnosis Date Essential hypertension Gout Hyperlipidemia Hypogonadism in male 10/27/2015 Mild intermittent asthma without complication Previous Surgical History PAST SURGICAL HISTORY Procedure Laterality Date APPENDECTOMY LAPAROSCOPY SURG CHOLECYSTECTOMY Cholecystectomy, lap PAST SURGICAL HISTORY OF Bilateral OD 04/03/2020, OS - 02/06/2020 TONSILLECTOMY & ADENOIDECTOMY <AGE 13 VASECTOMY UNI/BI SPX W/POSTOP SEMEN EXAMS Family History FAMILY HISTORY Problem Relation Age of Onset Stroke Mother other (rheumatoid arthritis) Maternal Grandmother Colon Cancer Maternal Grandfather Colon Cancer Paternal Grandfather Brain Cancer Son 23 Aneurysm Son Patient Allergies ALLERGIES Allergen Reactions Cycline-250 Swelling All family of cyclines Sumycin [Tetracycli* Swelling Current Medications Current Outpatient Medications on File Prior to Visit Medication Sig indomethacin (INDOCIN) 50 mg capsule Take 1 capsule by mouth three times daily with meals. testosterone cypionate (DEPO-TESTOSTERONE) 200 mg/mL injection Inject 1.0 cc every 2 weeks gabapentin (NEURONTIN) 600 mg tablet Take 1 tablet by mouth three times daily for 90 days. DULoxetine (CYMBALTA) 30 mg capsule Take 1 capsule by mouth once daily. Take along with 60 mg capsule for total daily dose of 90 mg Omeprazole Magnesium (PRILOSEC OTC) 20 mg tablet Take 1 tablet by mouth daily before breakfast. 1/2 hr before meal. albuterol HFA (VENTOLIN HFA) 90 mcg/actuation inhaler Inhale 2 Puffs as instructed every 4 hours as needed. tamsulosin (FLOMAX) 0.4 mg Take 1 capsule by mouth daily at bedtime. metroNIDAZOLE (FLAGYL) 500 mg tablet Take 1 tablet by mouth three times daily. cefdinir (OMNICEF) 300 mg capsule Take 1 capsule by mouth twice daily. potassium chloride SR (MICRO-K) 10 mEq CR capsule Take 1 capsule by mouth four times daily. Syringe with Needle, Safety 3 mL 22 gauge x 1 syrg 1 Each every 2 weeks. DULoxetine (CYMBALTA) 60 mg capsule Take 1 capsule by mouth once daily. lisinopril-hydroCHLOROthiazide (ZESTORETIC) 10-12.5 mg per tablet Take 1 tablet by mouth every morning. tiZANidine (ZANAFLEX) 4 mg tablet Take 1 tablet by mouth at bedtime as needed (muscle spasms). sildenafil (VIAGRA) 100 mg tablet Take one pill as needed 30-60 minutes prior to sexual activity simvastatin (ZOCOR) 40 mg tablet Take 1 tablet by mouth daily at bedtime. probenecid 500 mg tablet Take 1 tablet by mouth twice daily. montelukast (SINGULAIR) 10 mg tablet Take 1 tablet by mouth daily at bedtime. traZODone (DESYREL) 150 mg tablet Take 1 tablet by mouth daily at bedtime. anastrozole (ARIMIDEX) 1 mg tablet Take 1 tablet by mouth one time a week. colchicine 0.6 mg tablet Take 2 tabs, wait 1 hour then take 1 tab. Take 1 tab daily after fluticasone-vilanterol (BREO ELLIPTA) 100-25 mcg/dose inhaler Inhale 1 Inhalation as instructed once daily. No current facility-administered medications on file prior to visit. Social History Social History Tobacco Use Smoking status: Former Packs/day: 0.30 Years: 30.00 Additional pack years: 0.00 Total pack years: 9.00 Types: Cigarettes Smokeless tobacco: Never Tobacco comments: Stopped smoking 05/23/21. Vaping Use Vaping Use: Never used Substance Use Topics Alcohol use: Not Currently Comment: Sober since 07/2019 Drug use: Yes Comment: sporadic marijuana EXAM: BP 148/88 Pulse 68 Resp 16 Wt 77.7 kg (171 lb 3.2 oz) BMI 27.63 kg/m General Appearance: Well appearing, alert, in no acute distress, well-hydrated, well nourished.. Neck: Positive findings: superficial cervical adenopathy, small. Lungs: Lungs clear to auscultation. No wheezing, rhonchi, rales.. Heart: RRR without murmur, gallop, or rubs. No ectopy. Health Maintenance List COLORECTAL CANCER SCREENING Never done SHINGRIX VACCINE(1 of 2) Never done PNEUMOCOCCAL(2 - PCV) due on 08/20/2017 PROSTATE CANCER SCREENING DISCUSSION due on 12/15/2020 BP CONTROLLED (<130/80) due on 08/09/2021 COVID-19 VACCINE(5 - Pfizer series) due on 01/27/2022 INFLUENZA(1) due on 02/05/2023 ANNUAL PCP TEAM CHRONIC DISEASE VISIT due on 01/09/2024 DIABETES SCREEN due on 09/16/2025 DTAP,TDAP,TD(2 - Td or Tdap) due on 08/20/2026 LIPID SCREEN due on 09/17/2027 SPIROMETRY Completed DEPRESSION ASSESSMENT Completed HEPATITIS C SCREENING Completed HIV SCREENING Completed Data reviewed None ASSESSMENT/PLAN: 1. Hyperlipidemia, mixed - ICD9: 272.2, ICD10: E78.2 (primary diagnosis) - Control undetermined, due for labs - Continue current medications - Counseled on healthy diet and regular exercise - Discussed need for and benefit of weight loss. BMI 27.63 kg/(m^2) 2. Screening for colon cancer - ICD9: V76.51, ICD10: Z12.11 - FECAL OCCULT BLOOD TEST 3. Need for vaccination - ICD9: V05.9, ICD10: Z23 - PNEUMOCOCCAL VACCINE (PREVNAR 20) 4. Adjustment disorder with mixed anxiety and depressed mood - ICD9: 309.28, ICD10: F43.23 Increase Cymbalta to 60 mg 1 pill BID 5. Adjustment insomnia - ICD9: 307.41, ICD10: F51.02 Continue current medications. 6. Cervical radiculopathy - ICD9: 723.4, ICD10: M54.12 Continue current medications. 7. Hypertension, essential - ICD9: 401.9, ICD10: I10 - Controlled - Continue current medications - Recommend home blood pressure monitoring, to bring results to next visit - Encouraged sodium restriction, DASH or Mediterranean diet - Recommend regular aerobic exercise - Discussed need for and benefit of weight loss. BMI 27.63 kg/(m^2) 8. Asthma, moderate persistent, well-controlled - ICD9: 493.90, ICD10: J45.40 - Mild intermittent asthma stable - Continue current medications - Avoidance of triggers recommended 9. Hypogonadism in male - ICD9: 257.2, ICD10: E29.1 Continue current medications. 10. Idiopathic chronic gout without tophus, unspecified site - ICD9: 274.02, ICD10: [id number].00X0 Continue current medications. 11. Spinal stenosis of cervical region - ICD9: 723.0, ICD10: M48.02 Continue current medications. Follow up in 3 months with fasting labs prior. I agree with the Chief Complaint, ROS, and Past Histories independently gathered by the clinical ground support agent and the remaining scribed note accurately describes my personal service to the patient. Medical Decision Making: Problems: Moderate: 2+ stable chronic illnesses Data: Unique test(s) ordered: 3+ Risk: Moderate: Drug management Medical Decision Making Level: 4 - Moderate Marianne Che MD The documentation for this note was completed by Kassidy Frank Ma acting as scribe for Marianne Che MD. January 29, 2023 9:37 AM. Kassidy Frank Ma documented in this encounter [facility] 01-25-2023 Miscellaneous Notes See pt message, requesting to switch to you as PCP. Advise. Lindsey Russo Ma Please see pt's message. Not sure if you want to do a recheck with pt. Mellissa Contreras LPN documented in this encounter [facility] 01-08-2023 Note HNO ID: [id number] Author: Angela Solorio APRN.[employer] DEVELOPER Service: ? Author Type: Nurse Practitioner Type: Progress Notes Filed: 01/08/2023 10:06 AM Note Text: Chief Complaint Patient presents with: ER F/U HPI Margy Corral is a 62 year old male who presents here today for Above Complaints.. Patient was seen in office 01/04 and was sent to the ER for his pulsatile mass to his left neck, concerning fro arteritis. Patient was seen in ER and diagnosed with cervical adenitis. Patient reports he is feeling better however continues to have adenopathy and pain through the left side of the neck and base of skull. Past medical history, appointments, medications, allergies reviewed. Previous Medical History PAST MEDICAL HISTORY Diagnosis Date Essential hypertension Gout Hyperlipidemia Hypogonadism in male 10/27/2015 Mild intermittent asthma without complication Previous Surgical History PAST SURGICAL HISTORY Procedure Laterality Date APPENDECTOMY LAPAROSCOPY SURG CHOLECYSTECTOMY Cholecystectomy, lap PAST SURGICAL HISTORY OF Bilateral OD 04/03/2020, OS - 02/06/2020 TONSILLECTOMY AND ADENOIDECTOMY VASECTOMY UNI/BI SPX W/POSTOP SEMEN EXAMS Family History FAMILY HISTORY Problem Relation Age of Onset Stroke Mother other (rheumatoid arthritis) Maternal Grandmother Colon Cancer Maternal Grandfather Colon Cancer Paternal Grandfather Brain Cancer Son 23 Aneurysm Son Patient Allergies ALLERGIES Allergen Reactions Cycline-250 Swelling All family of cyclines Sumycin [Tetracycli* Swelling Current Medications Current Outpatient Medications on File Prior to Visit Medication Sig testosterone cypionate (DEPO-TESTOSTERONE) 200 mg/mL injection Inject 1.0 cc every 2 weeks gabapentin (NEURONTIN) 600 mg tablet Take 1 tablet by mouth three times daily for 90 days. DULoxetine (CYMBALTA) 30 mg capsule Take 1 capsule by mouth once daily. Take along with 60 mg capsule for total daily dose of 90 mg Omeprazole Magnesium (PRILOSEC OTC) 20 mg tablet Take 1 tablet by mouth daily before breakfast. 1/2 hr before meal. albuterol HFA (VENTOLIN HFA) 90 mcg/actuation inhaler Inhale 2 Puffs as instructed every 4 hours as needed. tamsulosin (FLOMAX) 0.4 mg Take 1 capsule by mouth daily at bedtime. metroNIDAZOLE (FLAGYL) 500 mg tablet Take 1 tablet by mouth three times daily. cefdinir (OMNICEF) 300 mg capsule Take 1 capsule by mouth twice daily. potassium chloride SR (MICRO-K) 10 mEq CR capsule Take 1 capsule by mouth four times daily. Syringe with Needle, Safety 3 mL 22 gauge x 1 syrg 1 Each every 2 weeks. DULoxetine (CYMBALTA) 60 mg capsule Take 1 capsule by mouth once daily. lisinopril-hydroCHLOROthiazide (ZESTORETIC) 10-12.5 mg per tablet Take 1 tablet by mouth every morning. tiZANidine (ZANAFLEX) 4 mg tablet Take 1 tablet by mouth at bedtime as needed (muscle spasms). indomethacin (INDOCIN) 50 mg capsule Take 1 capsule by mouth three times daily with meals. sildenafil (VIAGRA) 100 mg tablet Take one pill as needed 30-60 minutes prior to sexual activity simvastatin (ZOCOR) 40 mg tablet Take 1 tablet by mouth daily at bedtime. probenecid 500 mg tablet Take 1 tablet by mouth twice daily. montelukast (SINGULAIR) 10 mg tablet Take 1 tablet by mouth daily at bedtime. traZODone (DESYREL) 150 mg tablet Take 1 tablet by mouth daily at bedtime. anastrozole (ARIMIDEX) 1 mg tablet Take 1 tablet by mouth one time a week. colchicine 0.6 mg tablet Take 2 tabs, wait 1 hour then take 1 tab. Take 1 tab daily after fluticasone-vilanterol (BREO ELLIPTA) 100-25 mcg/dose inhaler Inhale 1 Inhalation as instructed once daily. No current facility-administered medications on file prior to visit. Social History Social History Tobacco Use Smoking status: Former Packs/day: 0.30 Years: 30.00 Total pack years: 9.00 Types: Cigarettes Smokeless tobacco: Never Tobacco comments: Stopped smoking 05/23/21. Vaping Use Vaping Use: Never used Substance Use Topics Alcohol use: Not Currently Comment: Sober since 07/2019 Drug use: Yes Comment: sporadic marijuana Review of Symptoms REVIEW OF SYSTEMS SEE HPI EXAM: BP 150/90 Pulse 64 Resp 14 Wt 77.1 kg (170 lb) BMI 27.44 kg/m? PHYSICAL EXAMINATION: General appearance: Well appearing, alert, in no acute distress, well-hydrated, well nourished. Skin: Skin color, texture, turgor normal, no suspicious rashes or lesions Head: Normocephalic, no masses, lesions, tenderness or abnormalities Neck: Positive findings: posterior cervical adenopathy Health Maintenance List COLORECTAL CANCER SCREENING Never done SHINGRIX VACCINE(1 of 2) Never done PNEUMOCOCCAL(2 - PCV) due on 08/20/2017 PROSTATE CANCER SCREENING DISCUSSION due on 12/15/2020 BP CONTROLLED (<130/80) due on 08/09/2021 COVID-19 VACCINE(5 - Pfizer series) due on 01/27/2022 INFLUENZA(1) due on 02/05/2023 ANNUAL PCP TEAM CHRONIC DISEASE VISIT d (more content not included)... [facility] 01-08-2023 Miscellaneous Notes OK to refill as ordered Marianne Che MD Patient phones requesting refills as follows: Requested Prescriptions Pending Prescriptions Disp Refills indomethacin (INDOCIN) 50 mg capsule 90 capsule 5 Sig: Take 1 capsule by mouth three times daily with meals. MAYRA-10/12/22 Labs-09/16/22 NOV-01/29/23 Please review and advise. Gill Palencia LPN documented in this encounter [facility] 01-08-2023 History of Present illness Narrative Chief Complaint Patient presents with: ER F/U HPI Margy Corral is a 62 year old male who presents here today for Above Complaints.. Patient was seen in office 01/04 and was sent to the ER for his pulsatile mass to his left neck, concerning fro arteritis. Patient was seen in ER and diagnosed with cervical adenitis. Patient reports he is feeling better however continues to have adenopathy and pain through the left side of the neck and base of skull. Past medical history, appointments, medications, allergies reviewed. Previous Medical History PAST MEDICAL HISTORY Diagnosis Date Essential hypertension Gout Hyperlipidemia Hypogonadism in male 10/27/2015 Mild intermittent asthma without complication Previous Surgical History PAST SURGICAL HISTORY Procedure Laterality Date APPENDECTOMY LAPAROSCOPY SURG CHOLECYSTECTOMY Cholecystectomy, lap PAST SURGICAL HISTORY OF Bilateral OD 04/03/2020, OS - 02/06/2020 TONSILLECTOMY & ADENOIDECTOMY <AGE 13 VASECTOMY UNI/BI SPX W/POSTOP SEMEN EXAMS Family History FAMILY HISTORY Problem Relation Age of Onset Stroke Mother other (rheumatoid arthritis) Maternal Grandmother Colon Cancer Maternal Grandfather Colon Cancer Paternal Grandfather Brain Cancer Son 23 Aneurysm Son Patient Allergies ALLERGIES Allergen Reactions Cycline-250 Swelling All family of cyclines Sumycin [Tetracycli* Swelling Current Medications Current Outpatient Medications on File Prior to Visit Medication Sig testosterone cypionate (DEPO-TESTOSTERONE) 200 mg/mL injection Inject 1.0 cc every 2 weeks gabapentin (NEURONTIN) 600 mg tablet Take 1 tablet by mouth three times daily for 90 days. DULoxetine (CYMBALTA) 30 mg capsule Take 1 capsule by mouth once daily. Take along with 60 mg capsule for total daily dose of 90 mg Omeprazole Magnesium (PRILOSEC OTC) 20 mg tablet Take 1 tablet by mouth daily before breakfast. 1/2 hr before meal. albuterol HFA (VENTOLIN HFA) 90 mcg/actuation inhaler Inhale 2 Puffs as instructed every 4 hours as needed. tamsulosin (FLOMAX) 0.4 mg Take 1 capsule by mouth daily at bedtime. metroNIDAZOLE (FLAGYL) 500 mg tablet Take 1 tablet by mouth three times daily. cefdinir (OMNICEF) 300 mg capsule Take 1 capsule by mouth twice daily. potassium chloride SR (MICRO-K) 10 mEq CR capsule Take 1 capsule by mouth four times daily. Syringe with Needle, Safety 3 mL 22 gauge x 1 syrg 1 Each every 2 weeks. DULoxetine (CYMBALTA) 60 mg capsule Take 1 capsule by mouth once daily. lisinopril-hydroCHLOROthiazide (ZESTORETIC) 10-12.5 mg per tablet Take 1 tablet by mouth every morning. tiZANidine (ZANAFLEX) 4 mg tablet Take 1 tablet by mouth at bedtime as needed (muscle spasms). indomethacin (INDOCIN) 50 mg capsule Take 1 capsule by mouth three times daily with meals. sildenafil (VIAGRA) 100 mg tablet Take one pill as needed 30-60 minutes prior to sexual activity simvastatin (ZOCOR) 40 mg tablet Take 1 tablet by mouth daily at bedtime. probenecid 500 mg tablet Take 1 tablet by mouth twice daily. montelukast (SINGULAIR) 10 mg tablet Take 1 tablet by mouth daily at bedtime. traZODone (DESYREL) 150 mg tablet Take 1 tablet by mouth daily at bedtime. anastrozole (ARIMIDEX) 1 mg tablet Take 1 tablet by mouth one time a week. colchicine 0.6 mg tablet Take 2 tabs, wait 1 hour then take 1 tab. Take 1 tab daily after fluticasone-vilanterol (BREO ELLIPTA) 100-25 mcg/dose inhaler Inhale 1 Inhalation as instructed once daily. No current facility-administered medications on file prior to visit. Social History Social History Tobacco Use Smoking status: Former Packs/day: 0.30 Years: 30.00 Total pack years: 9.00 Types: Cigarettes Smokeless tobacco: Never Tobacco comments: Stopped smoking 05/23/21. Vaping Use Vaping Use: Never used Substance Use Topics Alcohol use: Not Currently Comment: Sober since 07/2019 Drug use: Yes Comment: sporadic marijuana Review of Symptoms REVIEW OF SYSTEMS SEE HPI EXAM: BP 150/90 Pulse 64 Resp 14 Wt 77.1 kg (170 lb) BMI 27.44 kg/m PHYSICAL EXAMINATION: General appearance: Well appearing, alert, in no acute distress, well-hydrated, well nourished. Skin: Skin color, texture, turgor normal, no suspicious rashes or lesions Head: Normocephalic, no masses, lesions, tenderness or abnormalities Neck: Positive findings: posterior cervical adenopathy Health Maintenance List COLORECTAL CANCER SCREENING Never done SHINGRIX VACCINE(1 of 2) Never done PNEUMOCOCCAL(2 - PCV) due on 08/20/2017 PROSTATE CANCER SCREENING DISCUSSION due on 12/15/2020 BP CONTROLLED (<130/80) due on 08/09/2021 COVID-19 VACCINE(5 - Pfizer series) due on 01/27/2022 INFLUENZA(1) due on 02/05/2023 ANNUAL PCP TEAM CHRONIC DISEASE VISIT due on 01/05/2024 DIABETES SCREEN due on 09/16/2025 DTAP,TDAP,TD(2 - Td or Tdap) due on 08/20/2026 LIPID SCREEN due on 09/17/2027 SPIROMETRY Completed DEPRESSION ASSESSMENT Completed HEPATITIS C SCREENING Completed HIV SCREENING Completed ASSESSMENT/PLAN: 1. Acute cervical adenitis - ICD9: 683, ICD10: L04.0 - AZITHROMYCIN 250 MG TABLET Angela Solorio APRN.[employer] DEVELOPER documented in this encounter [facility] 01-04-2023 Note HNO ID: [id number] Author: Angela Solorio APRN.MAG[employer] DEVELOPER Service: ? Author Type: Nurse Practitioner Type: Progress Notes Filed: 01/04/2023 1:26 PM Note Text: Chief Complaint Patient presents with: lump on neck HPI Margy Corral is a 62 year old male who presents here today for Above Complaints.. Patient presents for lump on the left side of his neck. Patient reports lump started on Wednesday and has gotten larger over the weekend. He reports area is tender to touch and pain radiates to his posterior skull and up to crown of his head. Past medical history, appointments, medications, allergies reviewed. Previous Medical History PAST MEDICAL HISTORY Diagnosis Date Essential hypertension Gout Hyperlipidemia Hypogonadism in male 10/27/2015 Mild intermittent asthma without complication Previous Surgical History PAST SURGICAL HISTORY Procedure Laterality Date APPENDECTOMY LAPAROSCOPY SURG CHOLECYSTECTOMY Cholecystectomy, lap PAST SURGICAL HISTORY OF Bilateral OD 04/03/2020, OS - 02/06/2020 TONSILLECTOMY AND ADENOIDECTOMY VASECTOMY UNI/BI SPX W/POSTOP SEMEN EXAMS Family History FAMILY HISTORY Problem Relation Age of Onset Stroke Mother other (rheumatoid arthritis) Maternal Grandmother Colon Cancer Maternal Grandfather Colon Cancer Paternal Grandfather Brain Cancer Son 23 Aneurysm Son Patient Allergies ALLERGIES Allergen Reactions Cycline-250 Swelling All family of cyclines Sumycin [Tetracycli* Swelling Current Medications Current Outpatient Medications on File Prior to Visit Medication Sig testosterone cypionate (DEPO-TESTOSTERONE) 200 mg/mL injection Inject 1.0 cc every 2 weeks gabapentin (NEURONTIN) 600 mg tablet Take 1 tablet by mouth three times daily for 90 days. DULoxetine (CYMBALTA) 30 mg capsule Take 1 capsule by mouth once daily. Take along with 60 mg capsule for total daily dose of 90 mg Omeprazole Magnesium (PRILOSEC OTC) 20 mg tablet Take 1 tablet by mouth daily before breakfast. 1/2 hr before meal. albuterol HFA (VENTOLIN HFA) 90 mcg/actuation inhaler Inhale 2 Puffs as instructed every 4 hours as needed. tamsulosin (FLOMAX) 0.4 mg Take 1 capsule by mouth daily at bedtime. metroNIDAZOLE (FLAGYL) 500 mg tablet Take 1 tablet by mouth three times daily. cefdinir (OMNICEF) 300 mg capsule Take 1 capsule by mouth twice daily. potassium chloride SR (MICRO-K) 10 mEq CR capsule Take 1 capsule by mouth four times daily. Syringe with Needle, Safety 3 mL 22 gauge x 1 syrg 1 Each every 2 weeks. DULoxetine (CYMBALTA) 60 mg capsule Take 1 capsule by mouth once daily. lisinopril-hydroCHLOROthiazide (ZESTORETIC) 10-12.5 mg per tablet Take 1 tablet by mouth every morning. tiZANidine (ZANAFLEX) 4 mg tablet Take 1 tablet by mouth at bedtime as needed (muscle spasms). indomethacin (INDOCIN) 50 mg capsule Take 1 capsule by mouth three times daily with meals. sildenafil (VIAGRA) 100 mg tablet Take one pill as needed 30-60 minutes prior to sexual activity simvastatin (ZOCOR) 40 mg tablet Take 1 tablet by mouth daily at bedtime. probenecid 500 mg tablet Take 1 tablet by mouth twice daily. montelukast (SINGULAIR) 10 mg tablet Take 1 tablet by mouth daily at bedtime. traZODone (DESYREL) 150 mg tablet Take 1 tablet by mouth daily at bedtime. anastrozole (ARIMIDEX) 1 mg tablet Take 1 tablet by mouth one time a week. colchicine 0.6 mg tablet Take 2 tabs, wait 1 hour then take 1 tab. Take 1 tab daily after fluticasone-vilanterol (BREO ELLIPTA) 100-25 mcg/dose inhaler Inhale 1 Inhalation as instructed once daily. No current facility-administered medications on file prior to visit. Social History Social History Tobacco Use Smoking status: Former Packs/day: 0.30 Years: 30.00 Total pack years: 9.00 Types: Cigarettes Smokeless tobacco: Never Tobacco comments: Stopped smoking 05/23/21. Vaping Use Vaping Use: Never used Substance Use Topics Alcohol use: Not Currently Comment: Sober since 07/2019 Drug use: Yes Comment: sporadic marijuana Review of Symptoms REVIEW OF SYSTEMS SEE HPI EXAM: BP 154/92 Pulse 60 Resp 14 Wt 79.8 kg (176 lb) BMI 28.41 kg/m? General Appearance: Well appearing, alert, in no acute distress, well-hydrated, well nourished.. Neck: grape sized pulsatile mass to left neck, posterior and inferior to the left ear lobe. Tender with palpation mass as well as at base of skull. Health Maintenance List COLORECTAL CANCER SCREENING Never done SHINGRIX VACCINE(1 of 2) Never done PNEUMOCOCCAL(2 - PCV) due on 08/20/2017 PROSTATE CANCER SCREENING DISCUSSION due on 12/15/2020 BP CONTROLLED (<130/80) due on 08/09/2021 COVID-19 VACCINE(5 - Pfizer series) due on 01/27/2022 INFLUENZA(1) due on 02/05/2023 ANNUAL PCP TEAM CHRONIC DISEASE VISIT due on 10/13/2023 DIABETES SCREEN due on 09/16/2025 DTAP,TDAP,TD(2 - Td or Tdap) due on 08/20/2026 LIPID SCREEN due on 09/17/2027 SPIROMETRY Co (more content not included)... [facility] 12-07-2022 Miscellaneous Notes OK to refill as ordered Marianne Che MD Last OV: 10/12/22 Next OV: 01/29/23 Gabapentin - 09/14/22 #90 w/2 Testosterone - 04/20/22 10 mL w/1 refill. Lindsey Russo Ma documented in this encounter [facility] 10-12-2022 Note HNO ID: [id number] Author: Marianne Che MD Service: ? Author Type: Physician Type: Progress Notes Filed: 10/12/2022 8:05 PM Note Text: Chief Complaint Patient presents with: Medication Follow-up HPI: This Team Access Model visit is a virtual/phone encounter. It required patient-provider interaction for the medical decision making as documented below. Patient was offered a virtual/telemedicine appointment in lieu of an office visit due to recommendations to reduce patient exposure to COVID-19. Patient is aware of limitations of performing the visit without a face to face visit in the office setting and agrees. I have communicated my name and active licensure. The patient's identity and physical location were verified at the time of this visit. Either the patient or their legal accounts payable representative has been informed of the risks and benefits of -- and alternatives to -- treatment through a remote evaluation and consents to proceed with the evaluation remotely. Depression/IRIS: Cymbalta was increased to 60 mg daily as he was not noticing much improvement with previous dosage. He still has noticed much difference since increasing dosage. No side effects. He may have noticed some improvement overall with the Cymbalta. Colitis: that has improved, no pain, bowels are normal. Past medical history, appointments, medications, allergies reviewed. Previous Medical History PAST MEDICAL HISTORY Diagnosis Date Essential hypertension Gout Hyperlipidemia Hypogonadism in male 10/27/2015 Mild intermittent asthma without complication Previous Surgical History PAST SURGICAL HISTORY Procedure Laterality Date APPENDECTOMY LAPAROSCOPY SURG CHOLECYSTECTOMY Cholecystectomy, lap PAST SURGICAL HISTORY OF Bilateral OD 04/03/2020, OS - 02/06/2020 TONSILLECTOMY AND ADENOIDECTOMY VASECTOMY UNI/BI SPX W/POSTOP SEMEN EXAMS Family History FAMILY HISTORY Problem Relation Age of Onset Stroke Mother other (rheumatoid arthritis) Maternal Grandmother Colon Cancer Maternal Grandfather Colon Cancer Paternal Grandfather Brain Cancer Son 23 Aneurysm Son Patient Allergies ALLERGIES Allergen Reactions Cycline-250 Swelling All family of cyclines Sumycin [Tetracycli* Swelling Current Medications Current Outpatient Medications on File Prior to Visit Medication Sig tamsulosin (FLOMAX) 0.4 mg Take 1 capsule by mouth daily at bedtime. metroNIDAZOLE (FLAGYL) 500 mg tablet Take 1 tablet by mouth three times daily. cefdinir (OMNICEF) 300 mg capsule Take 1 capsule by mouth twice daily. gabapentin (NEURONTIN) 600 mg tablet Take 1 tablet by mouth three times daily for 90 days. potassium chloride SR (MICRO-K) 10 mEq CR capsule Take 1 capsule by mouth four times daily. Syringe with Needle, Safety 3 mL 22 gauge x 1 syrg 1 Each every 2 weeks. DULoxetine (CYMBALTA) 60 mg capsule Take 1 capsule by mouth once daily. lisinopril-hydroCHLOROthiazide (ZESTORETIC) 10-12.5 mg per tablet Take 1 tablet by mouth every morning. tiZANidine (ZANAFLEX) 4 mg tablet Take 1 tablet by mouth at bedtime as needed (muscle spasms). indomethacin (INDOCIN) 50 mg capsule Take 1 capsule by mouth three times daily with meals. albuterol HFA (VENTOLIN HFA) 90 mcg/actuation inhaler Inhale 2 Puffs as instructed every 4 hours as needed. sildenafil (VIAGRA) 100 mg tablet Take one pill as needed 30-60 minutes prior to sexual activity simvastatin (ZOCOR) 40 mg tablet Take 1 tablet by mouth daily at bedtime. probenecid 500 mg tablet Take 1 tablet by mouth twice daily. montelukast (SINGULAIR) 10 mg tablet Take 1 tablet by mouth daily at bedtime. traZODone (DESYREL) 150 mg tablet Take 1 tablet by mouth daily at bedtime. anastrozole (ARIMIDEX) 1 mg tablet Take 1 tablet by mouth one time a week. testosterone cypionate (DEPO-TESTOSTERONE) 200 mg/mL injection Inject 1.0 cc every 2 weeks colchicine 0.6 mg tablet Take 2 tabs, wait 1 hour then take 1 tab. Take 1 tab daily after fluticasone-vilanterol (BREO ELLIPTA) 100-25 mcg/dose inhaler Inhale 1 Inhalation as instructed once daily. Omeprazole Magnesium (PRILOSEC OTC) 20 mg tablet Take 1 tablet by mouth daily before breakfast. 1/2 hr before meal. No current facility-administered medications on file prior to visit. Social History Social History Tobacco Use Smoking status: Former Packs/day: 0.30 Years: 30.00 Pack years: 9.00 Types: Cigarettes Smokeless tobacco: Never Tobacco comments: Stopped smoking 05/23/21. Vaping Use Vaping Use: Never used Substance Use Topics Alcohol use: Not Currently Comment: Sober since 07/2019 Drug use: Yes Comment: sporadic marijuana EXAM: There were no vitals taken for this visit. Health Maintenance List COLORECTAL CANCER SCREENING Never done SHINGRIX VACCINE(1 of 2) Never done PNEUMOCOCCAL(2 - PCV) due on 08/20/2017 PROSTATE CANCER SCREENING DISCUSSION due on 12/15/2020 BP CONTROLLED (<130/80) d (more content not included)... [facility] 10-09-2022 Miscellaneous Notes The following approved medication requests have been transmitted electronically. Requested Prescriptions Signed Prescriptions Disp Refills Omeprazole Magnesium (PRILOSEC OTC) 20 mg tablet 30 tablet 11 Sig: Take 1 tablet by mouth daily before breakfast. 1/2 hr before meal. Authorizing Provider: MARIANNE CHE albuterol HFA (VENTOLIN HFA) 90 mcg/actuation inhaler 18 g 5 Sig: Inhale 2 Puffs as instructed every 4 hours as needed. Authorizing Provider: MARIANNE CHE Ma OK to refill as ordered Marianne Che MD documented in this encounter [facility] 09-14-2022 Note HNO ID: [id number] Author: Marianne Che MD Service: ? Author Type: Physician Type: Progress Notes Filed: 09/14/2022 8:00 PM Note Text: Transitional Care Management TCM Eligibility Documentation The following information was gathered during the initial Patient Outreach Encounter. Date of Outreach: 09/14/2022 Outreach Attempt 1: Contact Made Date of Discharge 09/11/2022 Some recent data might be hidden Provider Documentation Margy Corral is a 61 year old male here today for a follow up from recent hospitalization. I have reviewed the patient's hospital course including discharge summary, discharge medications , and follow up needs with the patient and any family members present at today's visit. HPI 7 Day TCM I have communicated my name and active licensure. The patient's identity and physical location were verified at the time of this visit. Either the patient or their legal accounts payable representative has been informed of the risks and benefits of -- and alternatives to -- treatment through a remote evaluation and consents to proceed with the evaluation remotely. Pt states he is feeling better then he did at time of admission, still has some tenderness to LUQ just below the breast bone, while at work and doing increased activity. Denies any pain at present time, while at home relaxing. Is still on antibiotics, denies any issues at present time. Stools a little loose, but not bad. Depression - Was started on Cymbalta 30 mg once daily. Denies noticing any improvement at this time with use of medication. No side effects. Pain - Chronic pain, not able to sleep due to his pain. Plan Patient is a 61-year-old gentleman presented with abdominal pain and diarrhea imaging studies demonstrated colitis involving the mid and distal portions of the transverse colon 1. Acute colitis - Ischemic versus infectious. Patient has been admitted to regular nursing floor as part of his management stool for C. difficile as well as enteric pathogen panel sent. Patient started on IV fluid, antibiotic therapy with Rocephin and metronidazole. Patient also started on pain meds for pain control in addition to antinausea medication - 09/11/2022 significant improvement in patient's symptoms diarrhea appears to have subsided back - Patient was instructed to follow-up with primary care physician on to be referred for outpatient colonoscopy to complete work-up 2. Leukocytosis - Secondary to above treatment as discussed above. Follow-up being monitored with daily CBC with differential - 09/11/2022 WBC count trending in the right direction 3. Hypertension - Blood pressure controlled, home medications continued with dose adjustment as needed 4. Hypogonadism - Patient is on anastrozole 5. GERD - Patient is on PPI continue 6. Nonalcoholic fatty liver disease - Monitoring with LFTs 7. Dyslipidemia -Patient is on statin therapy, continued at home dose 8. COPD - Aerosol treatments as needed 9. DVT prophylaxis - On enoxaparin New metronidazole 500 mg tablet 500 mg PO TID Qty: 20 0RF cefdinir 300 mg capsule 300 mg PO BID Qty: 10 0RF Documentation was copied and pasted from [facility] for continuity of care. VIDEO EXAMINATION NAD ASSESSMENT/PLAN: 1. Colitis - ICD9: 558.9, ICD10: K52.9 (primary diagnosis) Finish antibiotics; monitor symptoms. If clears up clinically will hold on colonoscopy (he prefers not to do scope) 2. Essential hypertension with goal blood pressure less than 130/80 - ICD9: 401.9, ICD10: I10 - POTASSIUM CHLORIDE ER 10 MEQ CAPSULE,EXTENDED RELEASE 3. Adjustment disorder with mixed anxiety and depressed mood - ICD9: 309.28, ICD10: F43.23 Increase Cymbalta to 60 mg daily - DULOXETINE 60 MG CAPSULE,DELAYED RELEASE 4. Hypertension, essential - ICD9: 401.9, ICD10: I10 Discussed code status; her requests to be DNR; advised to complete Advanced Directives. Follow up in 1 month Marianne Che MD [facility] 09-14-2022 Miscellaneous Notes Done at [facility] Marianne Che MD documented in this encounter [facility] 09-14-2022 History of Present illness Narrative Transitional Care Management TCM Eligibility Documentation The following information was gathered during the initial Patient Outreach Encounter. Date of Outreach: 09/14/2022 Outreach Attempt 1: Contact Made Date of Discharge 09/11/2022 Some recent data might be hidden Provider Documentation Margy Corral is a 61 year old male here today for a follow up from recent hospitalization. I have reviewed the patient's hospital course including discharge summary, discharge medications , and follow up needs with the patient and any family members present at today's visit. HPI 7 Day TCM I have communicated my name and active licensure. The patient's identity and physical location were verified at the time of this visit. Either the patient or their legal accounts payable representative has been informed of the risks and benefits of -- and alternatives to -- treatment through a remote evaluation and consents to proceed with the evaluation remotely. Pt states he is feeling better then he did at time of admission, still has some tenderness to LUQ just below the breast bone, while at work and doing increased activity. Denies any pain at present time, while at home relaxing. Is still on antibiotics, denies any issues at present time. Stools a little loose, but not bad. Depression - Was started on Cymbalta 30 mg once daily. Denies noticing any improvement at this time with use of medication. No side effects. Pain - Chronic pain, not able to sleep due to his pain. Plan Patient is a 61-year-old gentleman presented with abdominal pain and diarrhea imaging studies demonstrated colitis involving the mid and distal portions of the transverse colon 1. Acute colitis - Ischemic versus infectious. Patient has been admitted to regular nursing floor as part of his management stool for C. difficile as well as enteric pathogen panel sent. Patient started on IV fluid, antibiotic therapy with Rocephin and metronidazole. Patient also started on pain meds for pain control in addition to antinausea medication - 09/11/2022 significant improvement in patient's symptoms diarrhea appears to have subsided back - Patient was instructed to follow-up with primary care physician on to be referred for outpatient colonoscopy to complete work-up 2. Leukocytosis - Secondary to above treatment as discussed above. Follow-up being monitored with daily CBC with differential - 09/11/2022 WBC count trending in the right direction 3. Hypertension - Blood pressure controlled, home medications continued with dose adjustment as needed 4. Hypogonadism - Patient is on anastrozole 5. GERD - Patient is on PPI continue 6. Nonalcoholic fatty liver disease - Monitoring with LFTs 7. Dyslipidemia -Patient is on statin therapy, continued at home dose 8. COPD - Aerosol treatments as needed 9. DVT prophylaxis - On enoxaparin New metronidazole 500 mg tablet 500 mg PO TID Qty: 20 0RF cefdinir 300 mg capsule 300 mg PO BID Qty: 10 0RF Documentation was copied and pasted from [facility] for continuity of care. VIDEO EXAMINATION NAD ASSESSMENT/PLAN: 1. Colitis - ICD9: 558.9, ICD10: K52.9 (primary diagnosis) Finish antibiotics; monitor symptoms. If clears up clinically will hold on colonoscopy (he prefers not to do scope) 2. Essential hypertension with goal blood pressure less than 130/80 - ICD9: 401.9, ICD10: I10 - POTASSIUM CHLORIDE ER 10 MEQ CAPSULE,EXTENDED RELEASE 3. Adjustment disorder with mixed anxiety and depressed mood - ICD9: 309.28, ICD10: F43.23 Increase Cymbalta to 60 mg daily - DULOXETINE 60 MG CAPSULE,DELAYED RELEASE 4. Hypertension, essential - ICD9: 401.9, ICD10: I10 Discussed code status; her requests to be DNR; advised to complete Advanced Directives. Follow up in 1 month Marianne Che MD documented in this encounter [facility] 09-14-2022 Note HNO ID: [id number] Author: Lindsey Russo Ma Service: ? Author Type: ? Type: Progress Notes Filed: 09/14/2022 12:30 PM Note Text: TRANSITION CARE MANAGEMENT (TCM) INITIAL CONTACT [employer] Outreach Provider Action/FYI: Call to pt and discussed recent admission. Pt states that he's feeling better then when he went in. Still has some tenderness to LUQ right below his breast bone. Still completing abx that he was given. Pt also wanting to discuss his depression medication Cymbalta that was started at his last OV. Due to recently having surgery he's not able to leave much at home and is asking to have a VV with PCP. This was scheduled. Initial contact with patient post discharge, spoke to patient. Patient identified by name and . TRANSITION CARE MANAGEMENT INITIAL OUTREACH DOCUMENTATION: No flowsheet data found. SUMMARY: -Pt discharged from [facility] on 09/11/22. -Admitted for: Discharge Diagnosis (1) Colitis: Status: Acute Code(s): K52.9 - Noninfective gastroenteritis and colitis, unspecified Plan Patient is a 61-year-old gentleman presented with abdominal pain and diarrhea imaging studies demonstrated colitis involving the mid and distal portions of the transverse colon 1. Acute colitis - Ischemic versus infectious. Patient has been admitted to regular nursing floor as part of his management stool for C. difficile as well as enteric pathogen panel sent. Patient started on IV fluid, antibiotic therapy with Rocephin and metronidazole. Patient also started on pain meds for pain control in addition to antinausea medication - 09/11/2022 significant improvement in patient's symptoms diarrhea appears to have subsided back - Patient was instructed to follow-up with primary care physician on to be referred for outpatient colonoscopy to complete work-up 2. Leukocytosis - Secondary to above treatment as discussed above. Follow-up being monitored with daily CBC with differential - 09/11/2022 WBC count trending in the right direction 3. Hypertension - Blood pressure controlled, home medications continued with dose adjustment as needed 4. Hypogonadism - Patient is on anastrozole 5. GERD - Patient is on PPI continue 6. Nonalcoholic fatty liver disease - Monitoring with LFTs 7. Dyslipidemia -Patient is on statin therapy, continued at home dose 8. COPD - Aerosol treatments as needed 9. DVT prophylaxis - On enoxaparin New metronidazole 500 mg tablet 500 mg PO TID Qty: 20 0RF cefdinir 300 mg capsule 300 mg PO BID Qty: 10 0RF Documentation was copied and pasted from [facility] for continuity of care. Do you have a hospital follow up appointment with your PCP? Appointment on 09/14/22 with PCP. MEDICATIONS: Many patients have questions or concerns about their medications once they are home. Were you prescribed any new medications? If yes, what are those medications? Metronidazole 500 mg TID #20 and Cefdinir 300 mg bid #10. Were you told to hold any medications? No Were any of your medications discontinued? No Do you have any questions about getting or taking your medications? No Your discharge instructions/After visit Summary (AVS) are important in guiding you through the recovery process. Is there anything I might help you understand? No Do you have all the necessary equipment and supplies at home? Yes Medical records from recent hospitalization: [facility]. Lindsey Russo Ma [facility] 09-14-2022 Note Patient Outreach (FA MPWS) MARGY CORRAL ([id number]) 1960 M Date Time Provider Department 09/14/22 MARIANNE CHE During your visit today, we recorded the following information about you: Lindsey Russo Ma 09/14/2022 12:30 PM Signed TRANSITION CARE MANAGEMENT (TCM) INITIAL CONTACT [employer] Outreach Provider Action/FYI: Call to pt and discussed recent admission. Pt states that he's feeling better then when he went in. Still has some tenderness to LUQ right below his breast bone. Still completing abx that he was given. Pt also wanting to discuss his depression medication Cymbalta that was started at his last OV. Due to recently having surgery he's not able to leave much at home and is asking to have a VV with PCP. This was scheduled. Initial contact with patient post discharge, spoke to patient. Patient identified by name and . TRANSITION CARE MANAGEMENT INITIAL OUTREACH DOCUMENTATION: No flowsheet data found. SUMMARY: -Pt discharged from [facility] on 09/11/22. -Admitted for: Discharge Diagnosis (1) Colitis: Status: Acute Code(s): K52.9 - Noninfective gastroenteritis and colitis, unspecified Plan Patient is a 61-year-old gentleman presented with abdominal pain and diarrhea imaging studies demonstrated colitis involving the mid and distal portions of the transverse colon 1. Acute colitis - Ischemic versus infectious. Patient has been admitted to regular nursing floor as part of his management stool for C. difficile as well as enteric pathogen panel sent. Patient started on IV fluid, antibiotic therapy with Rocephin and metronidazole. Patient also started on pain meds for pain control in addition to antinausea medication - 09/11/2022 significant improvement in patient's symptoms diarrhea appears to have subsided back - Patient was instructed to follow-up with primary care physician on to be referred for outpatient colonoscopy to complete work-up 2. Leukocytosis - Secondary to above treatment as discussed above. Follow-up being monitored with daily CBC with differential - 09/11/2022 WBC count trending in the right direction 3. Hypertension - Blood pressure controlled, home medications continued with dose adjustment as needed 4. Hypogonadism - Patient is on anastrozole 5. GERD - Patient is on PPI continue 6. Nonalcoholic fatty liver disease - Monitoring with LFTs 7. Dyslipidemia -Patient is on statin therapy, continued at home dose 8. COPD - Aerosol treatments as needed 9. DVT prophylaxis - On enoxaparin New metronidazole 500 mg tablet 500 mg PO TID Qty: 20 0RF cefdinir 300 mg capsule 300 mg PO BID Qty: 10 0RF Documentation was copied and pasted from [facility] for continuity of care. Do you have a hospital follow up appointment with your PCP? Appointment on 09/14/22 with PCP. MEDICATIONS: Many patients have questions or concerns about their medications once they are home. Were you prescribed any new medications? If yes, what are those medications? Metronidazole 500 mg TID #20 and Cefdinir 300 mg bid #10. Were you told to hold any medications? No Were any of your medications discontinued? No Do you have any questions about getting or taking your medications? No Your discharge instructions/After visit Summary (AVS) are important in guiding you through the recovery process. Is there anything I might help you understand? No Do you have all the necessary equipment and supplies at home? Yes Medical records from recent hospitalization: [facility]. Lindsey Russo Ma Allergies As of Date: 09/14/2022 Noted Allergy Reaction CYCLINE-250 10/23/2015 7 - Swelling Comments: All family of gina SUMYCIN (TETRACYCLINE) 10/23/2015 7 - Swelling Date Reviewed: 06/04/2022 Reviewed by: Matilde Rao LPN - Fully Assessed Reason for Visit: Transition Of Care [0274] Cmt: [facility] D/C Prescriptions as of 09/14/2022 - lisinopril-hydroCHLOROthiazide (ZESTORETIC) 10-12.5 mg per tablet Take 1 tablet by mouth every morning. - tiZANidine (ZANAFLEX) 4 mg tablet Take 1 tablet by mouth at bedtime as needed (muscle spasms). - indomethacin (INDOCIN) 50 mg capsule Take 1 capsule by mouth three times daily with meals. - DULoxetine (CYMBALTA) 30 mg capsule Take 1 capsule by mouth once daily. - albuterol HFA (VENTOLIN HFA) 90 mcg/actuation inhaler Inhale 2 Puffs as instructed every 4 hours as needed. - sildenafil (VIAGRA) 100 mg tablet Take one pill as needed 30-60 minutes prior to sexual activity - gabapentin (NEURONTIN) 600 mg tablet Take 1 tablet by mouth three times daily for 90 days. - simvastatin (ZOCOR) 40 mg tablet Take 1 tablet by mouth daily at bedtime. - probenecid 500 mg tablet Take 1 tablet by mouth twice daily. - montelukast (SINGULAIR) 10 mg tablet Take 1 tablet by mouth daily at bedtime. - predniSONE (DELTASONE) 10 mg (more content not included)... [facility] 09-14-2022 History of Present illness Narrative TRANSITION CARE MANAGEMENT (TCM) INITIAL CONTACT [employer] Provider Action/FYI: Call to pt and discussed recent admission. Pt states that he's feeling better then when he went in. Still has some tenderness to LUQ right below his breast bone. Still completing abx that he was given. Pt also wanting to discuss his depression medication Cymbalta that was started at his last OV. Due to recently having surgery he's not able to leave much at home and is asking to have a VV with PCP. This was scheduled. Initial contact with patient post discharge, spoke to patient. Patient identified by name and . TRANSITION CARE MANAGEMENT INITIAL OUTREACH DOCUMENTATION: No flowsheet data found. SUMMARY: -Pt discharged from [facility] on 09/11/22. -Admitted for: Discharge Diagnosis (1) Colitis: Status: Acute Code(s): K52.9 - Noninfective gastroenteritis and colitis, unspecified Plan Patient is a 61-year-old gentleman presented with abdominal pain and diarrhea imaging studies demonstrated colitis involving the mid and distal portions of the transverse colon 1. Acute colitis - Ischemic versus infectious. Patient has been admitted to regular nursing floor as part of his management stool for C. difficile as well as enteric pathogen panel sent. Patient started on IV fluid, antibiotic therapy with Rocephin and metronidazole. Patient also started on pain meds for pain control in addition to antinausea medication - 09/11/2022 significant improvement in patient's symptoms diarrhea appears to have subsided back - Patient was instructed to follow-up with primary care physician on to be referred for outpatient colonoscopy to complete work-up 2. Leukocytosis - Secondary to above treatment as discussed above. Follow-up being monitored with daily CBC with differential - 09/11/2022 WBC count trending in the right direction 3. Hypertension - Blood pressure controlled, home medications continued with dose adjustment as needed 4. Hypogonadism - Patient is on anastrozole 5. GERD - Patient is on PPI continue 6. Nonalcoholic fatty liver disease - Monitoring with LFTs 7. Dyslipidemia -Patient is on statin therapy, continued at home dose 8. COPD - Aerosol treatments as needed 9. DVT prophylaxis - On enoxaparin New metronidazole 500 mg tablet 500 mg PO TID Qty: 20 0RF cefdinir 300 mg capsule 300 mg PO BID Qty: 10 0RF Documentation was copied and pasted from [facility] for continuity of care. Do you have a hospital follow up appointment with your PCP? Appointment on 09/14/22 with PCP. MEDICATIONS: Many patients have questions or concerns about their medications once they are home. Were you prescribed any new medications? If yes, what are those medications? Metronidazole 500 mg TID #20 and Cefdinir 300 mg bid #10. Were you told to hold any medications? No Were any of your medications discontinued? No Do you have any questions about getting or taking your medications? No Your discharge instructions/After visit Summary (AVS) are important in guiding you through the recovery process. Is there anything I might help you understand? No Do you have all the necessary equipment and supplies at home? Yes Medical records from recent hospitalization: [facility]. Lindsey Russo Ma documented in this encounter [facility] 08-14-2022 Note HNO ID: [id number] Author: Ashley Antony MD Service: ? Author Type: Physician Type: Progress Notes Filed: 08/18/2022 12:53 PM Note Text: Rheumatology FOLLOW UP VISIT Date of Service: 08/14/2022 Patient: Margy Corral Medical Record: [id number] Primary Care Physician: Marianne Che MD Last Rheumatology visit: 05/14/2022 (with Ashley Antony) Chief Complaint: No chief complaint on file. This is a virtual visit using [employer] video visit. It required patient-provider interaction for the medical decision making as documented below. Patient consented to this form of visit. I have communicated my name and active licensure. The patient's identity and physical location were verified at the time of this visit. Either the patient or their legal accounts payable representative has been informed of the risks and benefits of -- and alternatives to -- treatment through a remote evaluation and consents to proceed with the evaluation remotely. INTERVAL HISTORY Since his last visit he has been stable. His secondary work-up for CPPD was negative. When the steroids were completed he had return of his symptoms but not quite as bad. He still wears the brace on his left wrist most days and most nights. He also gets CMC pain bilaterally. He did not end up seeing orthopedics for further discussion of de Quervain's tenosynovitis with slight tear in one of his tendons. He saw his PCP virtually today with some plans for medication changes including starting Cymbalta, switching Celebrex to indomethacin, and continuing gabapentin. He does get improvement with gabapentin 600 mg 3 times a day particularly in his back and shoulders. ROS otherwise as below RHEUMATOLOGIC HISTORY HISTORY OF PRESENT ILLNESS 1. De Quervain's tenosynovitis 2. Chondrocalcinosis on left wrist Work-up: Negative RF, CCP Normal magnesium, phosphorus, PTH, ferritin 04/21/2022 x-ray wrist left: Chondrocalcinosis, scattered osteophytes 05/28/2022 wrist MRI: FINDINGS CONSISTENT WITH DE QUERVAIN'S TENOSYNOVITIS DETAILED IN THE BODY OF THE REPORT. REACTIVE BONE EDEMA WITHIN THE ADJACENT RADIAL STYLOID WITH A SMALL SUBCORTICAL DEGENERATIVE CYST. TENDINOSIS OF THE EXTENSOR CARPI ULNAR TENDON, WITH SMALL PARTIAL SPLIT TEAR AT THE LEVEL OF THE ULNAR STYLOID. Margy Corral is a 61 year old White male with a history of gout, cervical degenerative disc disease who presents to rheumatology clinic for follow-up of joint pain CPPD versus seronegative rheumatoid arthritis. Chart review reveals he was initially seen by Dr. Jefferson 05/2020 for MCP, PIP, wrist pain with swelling and stiffness and MCP joint space narrowing on x-ray. Medication trials as below: 06/17/2020: trial low dose prednisone with some relief short lived pain returned midday. 07/26/2020: some response to pred started hcq 400 mg every day 09/05/2020: Started Arava 20 mg every day every day for ongoing pain/stiffness. 10/25/2020: no response to dmards, us writs/hand to eval synovitis He was last seen 12/2020 at which point the plan was to discontinue Spiriva, taper hydroxychloroquine, continue following pain management, continue probenecid for gout with indomethacin for flares and daily Celebrex. Today he presents to clinic alone. He states that he has had years worth of bilateral wrist pain and swelling left worse than right. He is barely able to function and has to wear wrist brace all the time. He describes on the radial side from the base of his thumb through the most distal portion of his forearm. It is gotten worse over the past 1 year. He previously has trialed prednisone, hydroxychloroquine, leflunomide, gabapentin and is unclear if any of these really helped him. He currently takes Celebrex which helps with his back pain but not his wrist pain. He also describes pain in his MCPs more than his PIPs without pain in his DIPs. He has morning stiffness lasting all day. He notes a spine problem with numbness tingling shooting down his bilateral arms. He reportedly has had injections in his neck 3 times. He has pain throughout his body as well including his elbows, shoulders, hips, mid back, knees. He has no ankle or foot pain. He has difficulty sleeping secondary to the pain particularly in his shoulders. He previously has had dry spots on his skin and is unclear if he has been diagnosed with psoriasis in the past, today they are not flaring up. Rheumatologic review of systems notable for significant weight loss perhaps 60 pounds since getting dentures as they do not fit him well and he cannot eat the majority of the foods he likes to eat. He otherwise denies fevers, night sweats, history of uveitis, dry eye, dry mouth, sores in his nose or mouth, malar rash, photosensitivity, difficulty swallowing, cough, congestion, chest pain, shortness of breath, nausea, vomiting, abdominal pain, constipation, diarrhea, blood in his urine or stool, Raynaud's. (more content not included)... [facility] 08-14-2022 Note HNO ID: [id number] Author: Marianne Che MD Service: ? Author Type: Physician Type: Progress Notes Filed: 08/14/2022 9:40 AM Note Text: Chief Complaint Follow up HPI: This Team Access Model visit is a virtual encounter. It required patient-provider interaction for the medical decision making as documented below. Patient was offered a virtual/telemedicine appointment in lieu of an office visit due to recommendations to reduce patient exposure to COVID-19. Patient is aware of limitations of performing the visit without a face to face visit in the office setting and agrees. No bowel, Gi, or urinary issues. Is on Flomax 0.4 mg daily. Uses Viagra 100 mg prn ED. GERD: Stable on Prilosec 20 mg daily. HTN: Taking Lisinopril-HCTZ 10-12.5 mg daily. Taking Potassium 10 mEq 1 pill QID. Denies any chest pains, dizziness, or SOB. Does not check BP at home. Hypogonadism: Taking Testosterone injections every 2 weeks. Due to have level checked/ Lipid AND Glucose: Taking Zocor 40 mg daily. No regular exercise. Denies watching diet but doesn't eat much, difficulty with getting teeth pulled and his dentures dont fit right. Asthma: Taking Singulair 10 mg daily, Albuterol inhaler prn and Breo Ellipta inhaler daily. Quit smoking a year ago in May. Pain: Chronic; taking Celebrex 200 mg daily and Zanaflex 4 mg as needed. Has seen Rheum Dr. Ashley Antony; has follow up later today. He did feel better when he wa son prednisone, but it made him jittery. Has also seen Pain Management, Ortho and Neuro. Has pain in writs, bilateral shoulders, and back. He states that the pain causes him to feel depressed and irritable. Insomnia: Taking Trazodone 150 mg at bedtime. Gout: Recent flare that improved with indomethacin; requests refill of this. Discussed that he should not take this and celebrex at the same time. Did not feel that the colchicine helped much. Past medical history, appointments, medications, allergies reviewed. Previous Medical History PAST MEDICAL HISTORY Diagnosis Date Essential hypertension Gout Hyperlipidemia Hypogonadism in male 10/27/2015 Mild intermittent asthma without complication Previous Surgical History PAST SURGICAL HISTORY Procedure Laterality Date APPENDECTOMY LAPAROSCOPY SURG CHOLECYSTECTOMY Cholecystectomy, lap PAST SURGICAL HISTORY OF Bilateral OD 04/03/2020, OS - 02/06/2020 TONSILLECTOMY AND ADENOIDECTOMY VASECTOMY UNI/BI SPX W/POSTOP SEMEN EXAMS Family History FAMILY HISTORY Problem Relation Age of Onset Stroke Mother other (rheumatoid arthritis) Maternal Grandmother Colon Cancer Maternal Grandfather Colon Cancer Paternal Grandfather Brain Cancer Son 23 Aneurysm Son Patient Allergies ALLERGIES Allergen Reactions Cycline-250 Swelling All family of cyclines Sumycin [Tetracycli* Swelling Current Medications Current Outpatient Medications on File Prior to Visit Medication Sig sildenafil (VIAGRA) 100 mg tablet Take one pill as needed 30-60 minutes prior to sexual activity gabapentin (NEURONTIN) 600 mg tablet Take 1 tablet by mouth three times daily for 90 days. simvastatin (ZOCOR) 40 mg tablet Take 1 tablet by mouth daily at bedtime. probenecid 500 mg tablet Take 1 tablet by mouth twice daily. montelukast (SINGULAIR) 10 mg tablet Take 1 tablet by mouth daily at bedtime. albuterol HFA (VENTOLIN HFA) 90 mcg/actuation inhaler Inhale 2 Puffs as instructed every 4 hours as needed. predniSONE (DELTASONE) 10 mg tablet 20 mg x 1 week then 15 mg x 1 week then 10 mg until follow up traZODone (DESYREL) 150 mg tablet Take 1 tablet by mouth daily at bedtime. anastrozole (ARIMIDEX) 1 mg tablet Take 1 tablet by mouth one time a week. testosterone cypionate (DEPO-TESTOSTERONE) 200 mg/mL injection Inject 1.0 cc every 2 weeks celecoxib (CELEBREX) 200 mg capsule Take 1 capsule by mouth once daily. colchicine 0.6 mg tablet Take 2 tabs, wait 1 hour then take 1 tab. Take 1 tab daily after fluticasone-vilanterol (BREO ELLIPTA) 100-25 mcg/dose inhaler Inhale 1 Inhalation as instructed once daily. tiZANidine (ZANAFLEX) 4 mg tablet Take 1 tablet by mouth at bedtime as needed (muscle spasms). potassium chloride SR (MICRO-K) 10 mEq CR capsule Take 1 capsule by mouth four times daily. Syringe with Needle, Safety 3 mL 22 gauge x 1 syrg 1 Each every 2 weeks. Omeprazole Magnesium (PRILOSEC OTC) 20 mg tablet Take 1 tablet by mouth daily before breakfast. 1/2 hr before meal. tamsulosin (FLOMAX) 0.4 mg Take 1 capsule by mouth daily at bedtime. lisinopril-hydroCHLOROthiazide (PRINZIDE,ZESTORETIC) 10-12.5 mg per tablet Take 1 tablet by mouth every morning. No current facility-administered medications on file prior to visit. Social History Social History Tobacco Use Smoking status: Former Packs/day: 0.30 Years: 30.00 Pack years: 9.00 Types: Cigarettes Smokeless tobacco: Never Tobacco comments: Stopped smoking / (more content not included)... [facility] 08-14-2022 History of Present illness Narrative Images from the original note were not included. Rheumatology FOLLOW UP VISIT Date of Service: 08/14/2022 Patient: Margy Corral Medical Record: [id number] Primary Care Physician: Marianne Che MD Last Rheumatology visit: 05/14/2022 (with Ashley Antony) Chief Complaint: No chief complaint on file. This is a virtual visit using [employer] video visit. It required patient-provider interaction for the medical decision making as documented below. Patient consented to this form of visit. INTERVAL HISTORY Since his last visit he has been stable. His secondary work-up for CPPD was negative. When the steroids were completed he had return of his symptoms but not quite as bad. He still wears the brace on his left wrist most days and most nights. He also gets CMC pain bilaterally. He did not end up seeing orthopedics for further discussion of de Quervain's tenosynovitis with slight tear in one of his tendons. He saw his PCP virtually today with some plans for medication changes including starting Cymbalta, switching Celebrex to indomethacin, and continuing gabapentin. He does get improvement with gabapentin 600 mg 3 times a day particularly in his back and shoulders. ROS otherwise as below RHEUMATOLOGIC HISTORY HISTORY OF PRESENT ILLNESS 1. De Quervain's tenosynovitis 2. Chondrocalcinosis on left wrist Work-up: Negative RF, CCP Normal magnesium, phosphorus, PTH, ferritin 04/21/2022 x-ray wrist left: Chondrocalcinosis, scattered osteophytes 05/28/2022 wrist MRI: FINDINGS CONSISTENT WITH DE QUERVAIN'S TENOSYNOVITIS DETAILED IN THE BODY OF THE REPORT. REACTIVE BONE EDEMA WITHIN THE ADJACENT RADIAL STYLOID WITH A SMALL SUBCORTICAL DEGENERATIVE CYST. TENDINOSIS OF THE EXTENSOR CARPI ULNAR TENDON, WITH SMALL PARTIAL SPLIT TEAR AT THE LEVEL OF THE ULNAR STYLOID. Margy Corral is a 61 year old White male with a history of gout, cervical degenerative disc disease who presents to rheumatology clinic for follow-up of joint pain CPPD versus seronegative rheumatoid arthritis. Chart review reveals he was initially seen by Dr. Jefferson 05/2020 for MCP, PIP, wrist pain with swelling and stiffness and MCP joint space narrowing on x-ray. Medication trials as below: 06/17/2020: trial low dose prednisone with some relief short lived pain returned midday. 07/26/2020: some response to pred started hcq 400 mg every day 09/05/2020: Started Arava 20 mg every day every day for ongoing pain/stiffness. 10/25/2020: no response to dmards, us writs/hand to eval synovitis He was last seen 12/2020 at which point the plan was to discontinue Spiriva, taper hydroxychloroquine, continue following pain management, continue probenecid for gout with indomethacin for flares and daily Celebrex. Today he presents to clinic alone. He states that he has had years worth of bilateral wrist pain and swelling left worse than right. He is barely able to function and has to wear wrist brace all the time. He describes on the radial side from the base of his thumb through the most distal portion of his forearm. It is gotten worse over the past 1 year. He previously has trialed prednisone, hydroxychloroquine, leflunomide, gabapentin and is unclear if any of these really helped him. He currently takes Celebrex which helps with his back pain but not his wrist pain. He also describes pain in his MCPs more than his PIPs without pain in his DIPs. He has morning stiffness lasting all day. He notes a spine problem with numbness tingling shooting down his bilateral arms. He reportedly has had injections in his neck 3 times. He has pain throughout his body as well including his elbows, shoulders, hips, mid back, knees. He has no ankle or foot pain. He has difficulty sleeping secondary to the pain particularly in his shoulders. He previously has had dry spots on his skin and is unclear if he has been diagnosed with psoriasis in the past, today they are not flaring up. Rheumatologic review of systems notable for significant weight loss perhaps 60 pounds since getting dentures as they do not fit him well and he cannot eat the majority of the foods he likes to eat. He otherwise denies fevers, night sweats, history of uveitis, dry eye, dry mouth, sores in his nose or mouth, malar rash, photosensitivity, difficulty swallowing, cough, congestion, chest pain, shortness of breath, nausea, vomiting, abdominal pain, constipation, diarrhea, blood in his urine or stool, Raynaud's. Pain Evaluation Pain Evaluation 09/12/2021 09/12/2021 02/06/2022 02/19/2022 05/14/2022 Pain Score 0 0 5 8 9 Location - - Hand-Right (No Data) - Location Comment - - - bilateral shoulders - Description - - Sharp;Numbness Stabbing Aching Duration (#) - - 3 (No Data) - Duration (Timeframe) - - Weeks - Years Frequency - - Continuous Continuous Continuous Intervention - - Other: See comment Medication Declined PATIENT-ENTERED DATA PROMIS Assessments PROMIS Assessments 05/13/2022 08/10/2022 08/10/2022 Physical Health Percentile 2 % 4 % 4 % Mental Health Percentile 5 % - - Pain Score 2 2 2 Pain Interference Percentile 1 % - 4 % Fatigue Percentile 5 % - 4 % Physical Function Percentile 2 % - 7 % RAPID 3 Bhatti Activities of Daily Living 08/10/2022 8:43 PM 05/13/2022 10:52 AM 11/29/2020 5:43 PM First answer obtained - 06/12/2020 9:27 PM Dress self? With MUCH difficulty With MUCH difficulty With SOME difficulty Without ANY difficulty Get in and out of bed? With MUCH difficulty With SOME difficulty With SOME difficulty Without ANY difficulty Walk outdoors? Without ANY difficulty With SOME difficulty Without ANY difficulty Without ANY difficulty Wash and dry body? With SOME difficulty With MUCH difficulty With SOME difficulty Without ANY difficulty Get in and out of car? With SOME difficulty With SOME difficulty With SOME difficulty Without ANY difficulty RAPID 3 Disease Activity Weighed Score Levels: 0 - 1: Near Remission 1.3 - 2.0: Low Severity 2.3 - 4.0: Moderate Severity 4.3 - 10.0: High Severity RAPID-3 Weighed Score 11/29/2020 05/13/2022 08/10/2022 RAPID 3 Weighed Score 5.55 (High Severity (HS)) 7.5 (High Severity (HS)) Incomplete RAPID-3 08/10/2022 Weighed Score Percentage Change Compared to Last Score -100 % Review of Systems CONSTITUTION: Negative for: Fever and Recent weight change HEENT: Negative for: Nosebleeds, Mouth sores, Trouble swallowing and Dry mouth RESPIRATORY: Negative for: Cough, Shortness of breath and Pain with breathing GASTROINTESTINAL: Negative for: Melena, Diarrhea, Heartburn and Abdominal pain MUSCULOSKELETAL: Positive for: Arthralgias, Myalgias, Muscle weakness, Joint swelling and Morning Joint Stiffness NEUROLOGICAL: Positive for: Numbness and Memory loss Negative for: Headaches SKIN: Negative for: Rash, Skin changes, Hair loss and Nail changes EYES: Negative for: Eye pain, Eye redness, Eye dryness and visual disturbance CARDIOVASCULAR: Negative for: Chest pain and Leg swelling GENITOURINARY: Negative for: Dysuria and Hematuria HEMATOLOGIC/LYMPHATIC: Negative for: Swollen glands REVIEW OF SYSTEMS Complete ROS (HEENT, respiratory, cardiology, GI, , skin, psych, hematology, endocrine, neuro, musculoskeletal) negative except as noted in HPI. HISTORIES Past medical, surgical, family, and social history reviewed and notable changes since last visit include: Noted in HPI MEDICATIONS Current Outpatient Medications Medication Sig indomethacin (INDOCIN) 50 mg capsule Take 1 capsule by mouth three times daily with meals. DULoxetine (CYMBALTA) 30 mg capsule Take 1 capsule by mouth once daily. albuterol HFA (VENTOLIN HFA) 90 mcg/actuation inhaler Inhale 2 Puffs as instructed every 4 hours as needed. sildenafil (VIAGRA) 100 mg tablet Take one pill as needed 30-60 minutes prior to sexual activity gabapentin (NEURONTIN) 600 mg tablet Take 1 tablet by mouth three times daily for 90 days. simvastatin (ZOCOR) 40 mg tablet Take 1 tablet by mouth daily at bedtime. probenecid 500 mg tablet Take 1 tablet by mouth twice daily. montelukast (SINGULAIR) 10 mg tablet Take 1 tablet by mouth daily at bedtime. predniSONE (DELTASONE) 10 mg tablet 20 mg x 1 week then 15 mg x 1 week then 10 mg until follow up traZODone (DESYREL) 150 mg tablet Take 1 tablet by mouth daily at bedtime. anastrozole (ARIMIDEX) 1 mg tablet Take 1 tablet by mouth one time a week. testosterone cypionate (DEPO-TESTOSTERONE) 200 mg/mL injection Inject 1.0 cc every 2 weeks celecoxib (CELEBREX) 200 mg capsule Take 1 capsule by mouth once daily. colchicine 0.6 mg tablet Take 2 tabs, wait 1 hour then take 1 tab. Take 1 tab daily after fluticasone-vilanterol (BREO ELLIPTA) 100-25 mcg/dose inhaler Inhale 1 Inhalation as instructed once daily. tiZANidine (ZANAFLEX) 4 mg tablet Take 1 tablet by mouth at bedtime as needed (muscle spasms). potassium chloride SR (MICRO-K) 10 mEq CR capsule Take 1 capsule by mouth four times daily. Syringe with Needle, Safety 3 mL 22 gauge x 1 syrg 1 Each every 2 weeks. Omeprazole Magnesium (PRILOSEC OTC) 20 mg tablet Take 1 tablet by mouth daily before breakfast. 1/2 hr before meal. tamsulosin (FLOMAX) 0.4 mg Take 1 capsule by mouth daily at bedtime. lisinopril-hydroCHLOROthiazide (PRINZIDE,ZESTORETIC) 10-12.5 mg per tablet Take 1 tablet by mouth every morning. ALLERGIES ALLERGIES Allergen Reactions Cycline-250 Swelling All family of cyclines Sumycin [Tetracycli* Swelling PHYSICAL EXAM Appears well on the video, speech is confluent, edentulous LABS Reviewed in [facility], notable for: Nonimmune to hepatitis B Negative RF, CCP Negative secondary CPPD work-up CBC Latest Ref Rng & Units 10/11/2020 11/29/2020 02/05/2022 05/14/2022 WBC 3.70 - 11.00 k/uL 8.75 8.41 8.52 7.26 HEMOGLOBIN 13.0 - 17.0 g/dL 18.9(H) 19.0(H) 16.6 15.9 HEMATOCRIT 39.0 - 51.0 % 54.3(H) 59.2(H) 50.1 46.7 PLATELETS 150 - 400 k/uL 221 232 254 203 ABS NEUT (ANC) 1.45 - 7.50 k/uL 4.79 4.62 - 4.27 ABS LYMPH 1.00 - 4.00 k/uL 2.50 2.40 - 1.97 CMP Latest Ref Rng & Units 11/29/2020 02/15/2021 02/05/2022 05/14/2022 SODIUM 136 - 144 mmol/L 140 139 137 135(L) POTASSIUM 3.7 - 5.1 mmol/L 4.3 4.1 4.4 3.9 CHLORIDE 97 - 105 mmol/L 101 101 100 101 CO2 22 - 30 mmol/L 27 24 27 28 GLUCOSE 74 - 99 mg/dL 86 90 96 93 BUN 9 - 24 mg/dL 13 20 16 11 CREATININE 0.73 - 1.22 mg/dL 1.05 1.00 0.96 0.97 CALCIUM, TOTAL 8.5 - 10.2 mg/dL 9.3 9.5 9.7 9.1 AST 14 - 40 U/L 22 18 18 11(L) ALT 10 - 54 U/L 28 21 17 11 ALKALINE PHOSPHATASE 38 - 113 U/L 71 55 59 59 Uric Acid Latest Ref Rng & Units 11/01/2019 11/29/2020 02/15/2021 02/05/2022 URIC ACID 4.0 - 8.1 mg/dL 5.6 6.2 5.2 3.9(L) ESR, WSR Latest Ref Rng & Units 01/29/2020 05/24/2020 09/10/2020 05/14/2022 WSR 0 - 15 mm/hr 2 2 2 2 CRP Latest Ref Rng & Units 01/29/2020 05/24/2020 09/10/2020 05/14/2022 CRP <0.9 mg/dL 0.3 0.2 <0.3 <0.3 RF and CCP Latest Ref Rng & Units 05/24/2020 05/14/2022 RHEUMATOID FACTOR <16 IU/mL <10 <10 CCP ANTIBODY IGG QUALITATIVE Negative - Negative CCP ANTIBODY, IGG <20 Units <15 <15 Hepatitis Screen Latest Ref Rng & Units 06/18/2020 05/14/2022 HEPBCOTOL Negative Negative Negative HEPSABQ Negative Negative Negative HEPCABEIA Negative Negative Negative HBSAG Negative - Negative HBSAGR Negative Negative - TB Screen 06/18/2020 05/14/2022 TBGINT No evidence of current or previous infection with Mycobacterium tuberculosis. Infection with M. tuberculosis complex is unlikely. If latent tuberculosis infection is highly suspected, a negative result does not rule out the infection. Specimens from immunocompromised patients and those <5 years of age may show false negative results. In case of a contact investigation, please repeat 8-12 weeks after a known exposure. TBGRES Negative Negative Antibodies Latest Ref Rng & Units 01/29/2020 JEFF Negative Negative JEFF TITER Negative Negative JEFF PATTERN - Not applicable for negative result. ANCA Latest Ref Rng & Units 09/10/2020 MYELOPEROXIDASE ANTIBODY (MPO) <1.0 AI Test not performed on samples negative by immunofluorescence. PROTEINASE-3 ANTIBODY <1.0 AI Test not performed on samples negative by immunofluorescence. P-ANCA FLUORESCENCE Negative Negative C-ANCA FLUORESCENCE Negative Negative PANCA <1.0 AI Test not performed on samples negative by immunofluorescence. CANCA <1.0 AI Test not performed on samples negative by immunofluorescence. IMAGING Reviewed in [facility], notable for: 05/28/2022 MRI left wrist: IMPRESSION: FINDINGS CONSISTENT WITH DE QUERVAIN'S TENOSYNOVITIS DETAILED IN THE BODY OF THE REPORT. REACTIVE BONE EDEMA WITHIN THE ADJACENT RADIAL STYLOID WITH A SMALL SUBCORTICAL DEGENERATIVE CYST. TENDINOSIS OF THE EXTENSOR CARPI ULNAR TENDON, WITH SMALL PARTIAL SPLIT TEAR AT THE LEVEL OF THE ULNAR STYLOID. ASSESSMENT Margy Corral is a 61 year old White male with a history of gout, cervical degenerative disc disease who presents to rheumatology clinic for follow-up of joint pain. He has already undergone trials with hydroxychloroquine and leflunomide without response. He does get good response with prednisone and some response to NSAIDs. Objective data showed de Quervain's tenosynovitis of right wrist. At this time he has no signs or symptoms of rheumatoid arthritis and does not warrant additional immunosuppression. Discussed management of de Quervain's tenosynovitis with steroid injections and/or surgery as he also had a tear in one of his tendons. He adamantly declines anything to do with needles or surgeries. He does not like needles and is unable to take time off of work to have a surgery. Lastly I suspect he has underlying chronic pain syndrome in the setting of organic pain particularly given the degree of hyperesthesia he describes when touching his forearm. At this time his current pain management is being done by his PCP. I agree with plan to switch from Celebrex to indomethacin, add Cymbalta, and continue gabapentin. Can also consider uptitrating gabapentin. He did have concern for bilateral ulnar neuropathies. Briefly discussed EMG with increasing gabapentin. He declines EMG and would like to hold off on increasing gabapentin at this time as he is already having 2 different med changes today. His gout history is a bit unclear. It does not appear as though he has ever had an aspiration to prove it. His last uric acid was at goal. He continues to get flares of his joint pain which may simply be OA with his de Quervain's. IMPRESSIONS Diagnoses: (M65.4) De Quervain's disease (radial styloid tenosynovitis) (primary encounter diagnosis) (M25.532, G89.29) Wrist pain, chronic, left (M11.20) Chondrocalcinosis (G89.4) Chronic pain syndrome PLAN 1. Medication changes per Dr. Che 2. No indication for immunosuppression, no evidence of inflammatory arthritis 3. Offered EMG for ulnar neuropathies, he declined 4. Offered occupational therapy and referral to orthopedics for de Quervain's tenosynovitis, he declined 5. Recommend regular creatinine monitoring with switching to indomethacin 6. Okay to continue with brace as needed 7. If his pain worsens or changes additional investigation we warranted including synovial screen ultrasound of hands to evaluate for inflammatory with radius versus dual-energy CT of hands to evaluate for gout 8. Follow-up as needed or in 1 year as we are not actively treating the patient Orders this visit: No orders found for this visit on 08/14/22. No follow-ups on file. I spent a total of 29 minutes on the date of the service which included preparing to see the patient, completing clinical documentation, and counseling and educating the patient/family/caregiver. This note was partially generated with the assistance of [employer] voice recognition software. An attempt was made to correct any dictation errors however there may be some incorrect words, spellings, and punctuation. Ashley Antony MD Rheumatology Date: August 14, 2022 Time: 10:28 AM documented in this encounter [facility] 08-14-2022 History of Present illness Narrative Chief Complaint Follow up HPI: This Team Access Model visit is a virtual encounter. It required patient-provider interaction for the medical decision making as documented below. Patient was offered a virtual/telemedicine appointment in lieu of an office visit due to recommendations to reduce patient exposure to COVID-19. Patient is aware of limitations of performing the visit without a face to face visit in the office setting and agrees. No bowel, Gi, or urinary issues. Is on Flomax 0.4 mg daily. Uses Viagra 100 mg prn ED. GERD: Stable on Prilosec 20 mg daily. HTN: Taking Lisinopril-HCTZ 10-12.5 mg daily. Taking Potassium 10 mEq 1 pill QID. Denies any chest pains, dizziness, or SOB. Does not check BP at home. Hypogonadism: Taking Testosterone injections every 2 weeks. Due to have level checked/ Lipid & Glucose: Taking Zocor 40 mg daily. No regular exercise. Denies watching diet but doesn't eat much, difficulty with getting teeth pulled and his dentures dont fit right. Asthma: Taking Singulair 10 mg daily, Albuterol inhaler prn and Breo Ellipta inhaler daily. Quit smoking a year ago in May. Pain: Chronic; taking Celebrex 200 mg daily and Zanaflex 4 mg as needed. Has seen Rheum Dr. Ashley Antony; has follow up later today. He did feel better when he wa son prednisone, but it made him jittery. Has also seen Pain Management, Ortho and Neuro. Has pain in writs, bilateral shoulders, and back. He states that the pain causes him to feel depressed and irritable. Insomnia: Taking Trazodone 150 mg at bedtime. Gout: Recent flare that improved with indomethacin; requests refill of this. Discussed that he should not take this and celebrex at the same time. Did not feel that the colchicine helped much. Past medical history, appointments, medications, allergies reviewed. Previous Medical History PAST MEDICAL HISTORY Diagnosis Date Essential hypertension Gout Hyperlipidemia Hypogonadism in male 10/27/2015 Mild intermittent asthma without complication Previous Surgical History PAST SURGICAL HISTORY Procedure Laterality Date APPENDECTOMY LAPAROSCOPY SURG CHOLECYSTECTOMY Cholecystectomy, lap PAST SURGICAL HISTORY OF Bilateral OD 04/03/2020, OS - 02/06/2020 TONSILLECTOMY & ADENOIDECTOMY <AGE 13 VASECTOMY UNI/BI SPX W/POSTOP SEMEN EXAMS Family History FAMILY HISTORY Problem Relation Age of Onset Stroke Mother other (rheumatoid arthritis) Maternal Grandmother Colon Cancer Maternal Grandfather Colon Cancer Paternal Grandfather Brain Cancer Son 23 Aneurysm Son Patient Allergies ALLERGIES Allergen Reactions Cycline-250 Swelling All family of cyclines Sumycin [Tetracycli* Swelling Current Medications Current Outpatient Medications on File Prior to Visit Medication Sig sildenafil (VIAGRA) 100 mg tablet Take one pill as needed 30-60 minutes prior to sexual activity gabapentin (NEURONTIN) 600 mg tablet Take 1 tablet by mouth three times daily for 90 days. simvastatin (ZOCOR) 40 mg tablet Take 1 tablet by mouth daily at bedtime. probenecid 500 mg tablet Take 1 tablet by mouth twice daily. montelukast (SINGULAIR) 10 mg tablet Take 1 tablet by mouth daily at bedtime. albuterol HFA (VENTOLIN HFA) 90 mcg/actuation inhaler Inhale 2 Puffs as instructed every 4 hours as needed. predniSONE (DELTASONE) 10 mg tablet 20 mg x 1 week then 15 mg x 1 week then 10 mg until follow up traZODone (DESYREL) 150 mg tablet Take 1 tablet by mouth daily at bedtime. anastrozole (ARIMIDEX) 1 mg tablet Take 1 tablet by mouth one time a week. testosterone cypionate (DEPO-TESTOSTERONE) 200 mg/mL injection Inject 1.0 cc every 2 weeks celecoxib (CELEBREX) 200 mg capsule Take 1 capsule by mouth once daily. colchicine 0.6 mg tablet Take 2 tabs, wait 1 hour then take 1 tab. Take 1 tab daily after fluticasone-vilanterol (BREO ELLIPTA) 100-25 mcg/dose inhaler Inhale 1 Inhalation as instructed once daily. tiZANidine (ZANAFLEX) 4 mg tablet Take 1 tablet by mouth at bedtime as needed (muscle spasms). potassium chloride SR (MICRO-K) 10 mEq CR capsule Take 1 capsule by mouth four times daily. Syringe with Needle, Safety 3 mL 22 gauge x 1 syrg 1 Each every 2 weeks. Omeprazole Magnesium (PRILOSEC OTC) 20 mg tablet Take 1 tablet by mouth daily before breakfast. 1/2 hr before meal. tamsulosin (FLOMAX) 0.4 mg Take 1 capsule by mouth daily at bedtime. lisinopril-hydroCHLOROthiazide (PRINZIDE,ZESTORETIC) 10-12.5 mg per tablet Take 1 tablet by mouth every morning. No current facility-administered medications on file prior to visit. Social History Social History Tobacco Use Smoking status: Former Packs/day: 0.30 Years: 30.00 Pack years: 9.00 Types: Cigarettes Smokeless tobacco: Never Tobacco comments: Stopped smoking 05/23/21. Vaping Use Vaping Use: Never used Substance Use Topics Alcohol use: Not Currently Comment: Sober since 07/2019 Drug use: Yes Comment: sporadic marijuana EXAM: There were no vitals taken for this visit. NAD Health Maintenance List COLORECTAL CANCER SCREENING Never done SHINGRIX VACCINE(1 of 2) Never done PNEUMOCOCCAL(2 - PCV) due on 08/20/2017 PROSTATE CANCER SCREENING DISCUSSION due on 12/15/2020 BP CONTROLLED (<130/80) due on 08/09/2021 COVID-19 VACCINE(5 - Booster for Pfizer series) due on 01/27/2022 INFLUENZA(1) due on 02/05/2022 DEPRESSION ASSESSMENT Never done ANNUAL PCP TEAM CHRONIC DISEASE VISIT due on 02/06/2023 DIABETES SCREEN due on 05/14/2025 DTAP,TDAP,TD(2 - Td or Tdap) due on 08/20/2026 LIPID SCREEN due on 02/05/2027 SPIROMETRY Completed HEPATITIS C SCREENING Completed HIV SCREENING Completed Data reviewed none ASSESSMENT/PLAN: 1. Hypertension, essential - ICD9: 401.9, ICD10: I10 (primary diagnosis) - fair control - Continue current medication(s) - Recommended regular aerobic exercise. - Goal of BP <140/90 2. Hypogonadism in male - ICD9: 257.2, ICD10: E29.1 Check level Continue current medications. - TESTOSTERONE, FREE AND TOTAL 3. Asthma, moderate persistent, well-controlled - ICD9: 493.90, ICD10: J45.40 4. Cervical spondylosis without myelopathy - ICD9: 721.0, ICD10: M47.812 5. Gastro-esophageal reflux disease without esophagitis - ICD9: 530.81, ICD10: K21.9 Continue current medications. 6. Other chondrocalcinosis, unspecified site - ICD9: 712.30, ICD10: M11.20 7. Idiopathic chronic gout without tophus, unspecified site - ICD9: 274.02, ICD10: M1A.00X0 Nikunj refill indomethacin; do not use with celebrex - INDOMETHACIN 50 MG CAPSULE 8. Hyperlipidemia, mixed - ICD9: 272.2, ICD10: E78.2 Check labs - COMP METABOLIC PANEL - LIPID PANEL BASIC 9. Adjustment disorder with mixed anxiety and depressed mood - ICD9: 309.28, ICD10: F43.23 Start Cymbalta - DULOXETINE 30 MG CAPSULE,DELAYED RELEASE Follow up in 3 months Notify of lab results I agree with the Chief Complaint, ROS, and Past Histories independently gathered by the clinical ground support agent and the remaining scribed note accurately describes my personal service to the patient. Marianne Che MD The documentation for this note was completed by Kassidy Frank Ma acting as scribe for Marianne Che MD. August 14, 2022 8:45 AM. Kassidy Frank Ma documented in this encounter [facility] 08-11-2022 Miscellaneous Notes The following approved medication requests have been transmitted electronically. Requested Prescriptions Pending Prescriptions Disp Refills albuterol HFA (VENTOLIN HFA) 90 mcg/actuation inhaler 18 g 1 Sig: Inhale 2 Puffs as instructed every 4 hours as needed. Jonny Flores APRN.[employer] DEVELOPER Patient has been identified by name and date of : Yes, Provider Dr. Che Date 08/11/22 Time 8:49 am Patient phones for refill(s): Requested Prescriptions Pending Prescriptions Disp Refills albuterol HFA (VENTOLIN HFA) 90 mcg/actuation inhaler 18 g 1 Sig: Inhale 2 Puffs as instructed every 4 hours as needed. Date of last office visit in primary care: 02/06/22 next apt 08/14/22 Last 2 Encounter Wt Readings: Date: Wt: 06/04/2022 69.4 kg (153 lb) 05/14/2022 74.8 kg (165 lb) Previous labs/tests for medication: Not applicable Thank you. Sara Rao LPN documented in this encounter [facility] 06-12-2022 Miscellaneous Notes OK to refill as ordered Marianne Che MD documented in this encounter [facility] 06-12-2022 Miscellaneous Notes Offered to assist pt in scheduling 6 month follow up. Offered 08/14/22 with PCP at 9:00 am. Needs 40 minutes. Wait on pt response, then schedule. Lindsey Russo Ma documented in this encounter [facility] 06-04-2022 History of Present illness Narrative This note was created using [employer] Subjective Margy Corral is a 61 year old male. HPI Presents with cough, wheezing, shortness of breath over the past week. He was in the ER on the and had a negative chest x-ray at that point. He was on a burst of prednisone as well. He does have a history of asthma. Patient has been dizzy off and on. He has had 2-3 bouts of diarrhea a day for the past week as well. He does have a history of hypokalemia and takes a supplement for that. He states it does hurt in his chest when he coughs. Patient has had a 13 pound weight loss this past month, over 50 pounds over the past 9 months. Patient states this is because he had his teeth pulled and just does not eat.He felt like he has had a fever this am. Review of Systems Constitutional: Positive for fatigue and fever. HENT: Positive for congestion. Respiratory: Positive for cough, shortness of breath and wheezing. Cardiovascular: Positive for chest pain. Gastrointestinal: Positive for diarrhea. Musculoskeletal: Positive for myalgias. Neurological: Positive for dizziness and light-headedness. All other systems reviewed and are negative. PAST MEDICAL HISTORY Diagnosis Date Essential hypertension Gout Hyperlipidemia Hypogonadism in male 10/27/2015 Mild intermittent asthma without complication Current Outpatient Medications Medication Sig Dispense Refill predniSONE (DELTASONE) 10 mg tablet 20 mg x 1 week then 15 mg x 1 week then 10 mg until follow up 60 tablet 0 traZODone (DESYREL) 150 mg tablet Take 1 tablet by mouth daily at bedtime. 30 tablet 11 anastrozole (ARIMIDEX) 1 mg tablet Take 1 tablet by mouth one time a week. 12 tablet 3 testosterone cypionate (DEPO-TESTOSTERONE) 200 mg/mL injection Inject 1.0 cc every 2 weeks 10 mL 1 celecoxib (CELEBREX) 200 mg capsule Take 1 capsule by mouth once daily. 30 capsule 5 albuterol HFA (VENTOLIN HFA) 90 mcg/actuation inhaler Inhale 2 Puffs as instructed every 4 hours as needed. 18 g 1 colchicine 0.6 mg tablet Take 2 tabs, wait 1 hour then take 1 tab. Take 1 tab daily after 6 tablet 3 gabapentin (NEURONTIN) 600 mg tablet Take 1 tablet by mouth three times daily for 90 days. 90 tablet 2 fluticasone-vilanterol (BREO ELLIPTA) 100-25 mcg/dose inhaler Inhale 1 Inhalation as instructed once daily. 1 Each 11 tiZANidine (ZANAFLEX) 4 mg tablet Take 1 tablet by mouth at bedtime as needed (muscle spasms). 30 tablet 5 potassium chloride SR (MICRO-K) 10 mEq CR capsule Take 1 capsule by mouth four times daily. 360 capsule 3 Syringe with Needle, Safety 3 mL 22 gauge x 1 syrg 1 Each every 2 weeks. 6 Each 3 Omeprazole Magnesium (PRILOSEC OTC) 20 mg tablet Take 1 tablet by mouth daily before breakfast. 1/2 hr before meal. 30 tablet 11 tamsulosin (FLOMAX) 0.4 mg Take 1 capsule by mouth daily at bedtime. 90 capsule 3 lisinopril-hydroCHLOROthiazide (PRINZIDE,ZESTORETIC) 10-12.5 mg per tablet Take 1 tablet by mouth every morning. 90 tablet 3 simvastatin (ZOCOR) 40 mg tablet Take 1 tablet by mouth daily at bedtime. 90 tablet 2 probenecid 500 mg tablet Take 1 tablet by mouth twice daily. 180 tablet 2 montelukast (SINGULAIR) 10 mg tablet Take 1 tablet by mouth daily at bedtime. 90 tablet 2 sildenafil (VIAGRA) 100 mg tablet Take one pill as needed 30-60 minutes prior to sexual activity 6 tablet 5 No current facility-administered medications for this visit. PAST SURGICAL HISTORY Procedure Laterality Date APPENDECTOMY LAPAROSCOPY SURG CHOLECYSTECTOMY Cholecystectomy, lap PAST SURGICAL HISTORY OF Bilateral OD 04/03/2020, OS - 02/06/2020 TONSILLECTOMY & ADENOIDECTOMY <AGE 13 VASECTOMY UNI/BI SPX W/POSTOP SEMEN EXAMS FAMILY HISTORY Problem Relation Age of Onset Stroke Mother other (rheumatoid arthritis) Maternal Grandmother Colon Cancer Maternal Grandfather Colon Cancer Paternal Grandfather Brain Cancer Son 23 Aneurysm Son Social History Tobacco Use Smoking status: Former Packs/day: 0.30 Years: 30.00 Pack years: 9.00 Types: Cigarettes Smokeless tobacco: Never Tobacco comments: Stopped smoking 05/23/21. Vaping Use Vaping Use: Never used Substance Use Topics Alcohol use: Not Currently Comment: Sober since 07/2019 Drug use: Yes Comment: sporadic marijuana Objective BP 148/84 Pulse (!) 52 Temp 36.9 C (98.4 F) (Tympanic) Resp 18 Wt 69.4 kg (153 lb) SpO2 97% BMI 24.69 kg/m Physical Exam Vitals reviewed. Constitutional: Appearance: Normal appearance. He is ill-appearing. HENT: Head: Normocephalic and atraumatic. Right Ear: Tympanic membrane, ear canal and external ear normal. Left Ear: Tympanic membrane, ear canal and external ear normal. Nose: Nose normal. Mouth/Throat: Mouth: Mucous membranes are dry. Cardiovascular: Rate and Rhythm: Bradycardia present. Heart sounds: Normal heart sounds. Comments: Heart rate 52 Pulmonary: Breath sounds: Wheezing and rhonchi present. Skin: General: Skin is warm and dry. Neurological: General: No focal deficit present. Mental Status: He is alert and oriented to person, place, and time. Assessment and Plan ASSESSMENT/PLAN: 1. Dehydration - ICD9: 276.51, ICD10: E86.0 (primary diagnosis) Patient appears dehydrated on exam. He has had 2-3 bouts of diarrhea every day over the past week. He is dizzy and lightheaded. He has not been eating the past week. Discussed with the patient I would recommend IV hydration at the emergency department. Patient refused to go. Patient stated he wanted to feel better by Wednesday, I discussed with him I could reorder chest x-ray however he had a one 3 days ago which was negative. I offered some outpatient labs to see if his electrolytes were really off but patient refused this also and left. 2. Diarrhea, unspecified type - ICD9: 787.91, ICD10: R19.7 3. Influenza A - ICD9: 487.1, ICD10: J10.1 4. Dizziness - ICD9: 780.4, ICD10: R42 5. Weight loss - ICD9: 783.21, ICD10: R63.4 I did discuss this with the patient. He states he has lost weight because he does not have teeth and does not eat. Discussed however he should have this evaluated by PCP. Domenica Reza PA-C documented in this encounter [facility] 05-28-2022 Note HNO ID: [id number] Author: RT Jono(R) Service: ? Author Type: Technologist Type: Progress Notes Filed: 05/28/2022 9:59 AM Note Text: Radiology Service Progress Note DATE OF SERVICE: May 28, 2022 TIME: 9:58 AM PATIENT IDENTITY VERIFICATION COMPLETED USING TWO (2) STANDARD IDENTIFIERS: Name and Date of confirmed by patient verbally. FALL SCREENING: Has the patient had 2 falls in the last year or 1 fall with injury or currently using an Ambulatory Assistive Device (Walker, Cane, Wheelchair, Crutches, etc.)? No PATIENT GENDER DATA: Male PATIENT RELEVANT IMPLANT DATA REVIEWED: Yes ALLERGIES: Reviewed and unchanged CONTRAST ALLERGY: NO. EXAM: MRI - CONTRAST TYPE: GROUP II PERIPHERAL IV DATA: Ambulatory: A peripheral IV was started in the Right with a Angio cath: 22 gauge. RADIOLOGY DEPARTMENT: MR; Exam(s) Completed: Upper MSK: Wrist, left SIGNATURE: Courtney Gonzalez RDMS, RVT- Jodie ([facility]) PATIENT NAME: Margy Corral DATE: May 28, 2022 TIME: 9:58 AM [facility] 05-28-2022 History of Present illness Narrative Radiology Service Progress Note DATE OF SERVICE: May 28, 2022 TIME: 9:58 AM PATIENT IDENTITY VERIFICATION COMPLETED USING TWO (2) STANDARD IDENTIFIERS: Name and Date of confirmed by patient verbally. FALL SCREENING: Has the patient had 2 falls in the last year or 1 fall with injury or currently using an Ambulatory Assistive Device (Walker, Cane, Wheelchair, Crutches, etc.)? No PATIENT GENDER DATA: Male PATIENT RELEVANT IMPLANT DATA REVIEWED: Yes ALLERGIES: Reviewed and unchanged CONTRAST ALLERGY: NO. EXAM: MRI - CONTRAST TYPE: GROUP II PERIPHERAL IV DATA: Ambulatory: A peripheral IV was started in the Right with a Angio cath: 22 gauge. RADIOLOGY DEPARTMENT: MR; Exam(s) Completed: Upper MSK: Wrist, left SIGNATURE: Courtney Gonzalez RDMS, RVT- Jodie ([facility]) PATIENT NAME: Margy Corral DATE: May 28, 2022 TIME: 9:58 AM documented in this encounter [facility] 05-14-2022 Instructions Ashley Antony MD - 05/14/2022 10:25 AM EST Labs and x rays today Schedule MRI Trial prednisone taper, sent to pharmacy Follow up 4 weeks video to discuss results and next steps documented in this encounter [facility] 05-14-2022 History of Present illness Narrative Images from the original note were not included. Rheumatology CONSULTATION Date of Service: 05/14/2022 Patient: Margy Corral Medical Record: [id number] Primary Care Physician: Marianne Che MD Last Rheumatology visit: 12/06/2020 (with Ángela Jefferson) Referring Provider: Marianne Che MD. Chief Complaint: Patient presents with: New Patient Joint Pain Margy Corral is here today at request of Dr. Che specifically for consultation of my opinion in regards to the chief complaint listed above. Correspondence will be shared today via the [facility] electronic health record or through regular mail, where applicable. HISTORY OF PRESENT ILLNESS Margy Corral is a 61 year old White male with a history of gout, cervical degenerative disc disease who presents to rheumatology clinic for follow-up of joint pain CPPD versus seronegative rheumatoid arthritis. Chart review reveals he was initially seen by Dr. Jefferson 05/2020 for MCP, PIP, wrist pain with swelling and stiffness and MCP joint space narrowing on x-ray. Medication trials as below: 06/17/2020: trial low dose prednisone with some relief short lived pain returned midday. 07/26/2020: some response to pred started hcq 400 mg every day 09/05/2020: Started Arava 20 mg every day every day for ongoing pain/stiffness. 10/25/2020: no response to dmards, us writs/hand to eval synovitis He was last seen 12/2020 at which point the plan was to discontinue Spiriva, taper hydroxychloroquine, continue following pain management, continue probenecid for gout with indomethacin for flares and daily Celebrex. Today he presents to clinic alone. He states that he has had years worth of bilateral wrist pain and swelling left worse than right. He is barely able to function and has to wear wrist brace all the time. He describes on the radial side from the base of his thumb through the most distal portion of his forearm. It is gotten worse over the past 1 year. He previously has trialed prednisone, hydroxychloroquine, leflunomide, gabapentin and is unclear if any of these really helped him. He currently takes Celebrex which helps with his back pain but not his wrist pain. He also describes pain in his MCPs more than his PIPs without pain in his DIPs. He has morning stiffness lasting all day. He notes a spine problem with numbness tingling shooting down his bilateral arms. He reportedly has had injections in his neck 3 times. He has pain throughout his body as well including his elbows, shoulders, hips, mid back, knees. He has no ankle or foot pain. He has difficulty sleeping secondary to the pain particularly in his shoulders. He previously has had dry spots on his skin and is unclear if he has been diagnosed with psoriasis in the past, today they are not flaring up. Rheumatologic review of systems notable for significant weight loss perhaps 60 pounds since getting dentures as they do not fit him well and he cannot eat the majority of the foods he likes to eat. He otherwise denies fevers, night sweats, history of uveitis, dry eye, dry mouth, sores in his nose or mouth, malar rash, photosensitivity, difficulty swallowing, cough, congestion, chest pain, shortness of breath, nausea, vomiting, abdominal pain, constipation, diarrhea, blood in his urine or stool, Raynaud's. Pain Evaluation Pain Evaluation 09/12/2021 09/12/2021 02/06/2022 02/19/2022 05/14/2022 Pain Score 0 0 5 8 9 Location - - Hand-Right (No Data) - Location Comment - - - bilateral shoulders - Description - - Sharp;Numbness Stabbing Aching Duration (#) - - 3 (No Data) - Duration (Timeframe) - - Weeks - Years Frequency - - Continuous Continuous Continuous Intervention - - Other: See comment Medication Declined PATIENT-ENTERED DATA PROMIS Assessments PROMIS Assessments 12/15/2021 01/31/2022 05/13/2022 Physical Health Percentile 7 % - 2 % Mental Health Percentile 26 % - 5 % Pain Score 2 - 2 Pain Interference Percentile 7 % 1 % 1 % Fatigue Percentile 8 % 4 % 5 % Physical Function Percentile 7 % 16 % 2 % RAPID 3 Bhatti Activities of Daily Living 05/13/2022 10:52 AM 11/29/2020 5:43 PM 06/12/2020 9:27 PM Dress self? With MUCH difficulty With SOME difficulty Without ANY difficulty Get in and out of bed? With SOME difficulty With SOME difficulty Without ANY difficulty Walk outdoors? With SOME difficulty Without ANY difficulty Without ANY difficulty Wash and dry body? With MUCH difficulty With SOME difficulty Without ANY difficulty Get in and out of car? With SOME difficulty With SOME difficulty Without ANY difficulty RAPID 3 Disease Activity Weighed Score Levels: 0 - 1: Near Remission 1.3 - 2.0: Low Severity 2.3 - 4.0: Moderate Severity 4.3 - 10.0: High Severity RAPID-3 Weighed Score 06/12/2020 11/29/2020 05/13/2022 RAPID 3 Weighed Score 2.55 (Moderate Severity (MS)) 5.55 (High Severity (HS)) 7.5 (High Severity (HS)) RAPID-3 05/13/2022 Weighed Score Percentage Change Compared to Last Score 35.14 % Review of Systems CONSTITUTION: Positive for: Recent weight change Negative for: Fever HEENT: Positive for: Dry mouth Negative for: Nosebleeds RESPIRATORY: Negative for: Cough, Shortness of breath and Pain with breathing GASTROINTESTINAL: Negative for: Melena, Diarrhea, Heartburn and Abdominal pain MUSCULOSKELETAL: Positive for: Arthralgias, Myalgias, Muscle weakness, Joint swelling and Morning Joint Stiffness NEUROLOGICAL: Positive for: Numbness and Memory loss Negative for: Headaches SKIN: Negative for: Rash, Skin changes, Hair loss and Nail changes EYES: Positive for: Visual disturbance Negative for: Eye pain, Eye redness and Eye dryness CARDIOVASCULAR: Negative for: Chest pain and Leg swelling GENITOURINARY: Negative for: Dysuria and Hematuria HEMATOLOGIC/LYMPHATIC: Negative for: Swollen glands REVIEW OF SYSTEMS Complete ROS (HEENT, respiratory, cardiology, GI, , skin, psych, hematology, endocrine, neuro, musculoskeletal) negativee except as noted in HPI. PAST MEDICAL HISTORY PAST MEDICAL HISTORY Diagnosis Date Essential hypertension Gout Hyperlipidemia Hypogonadism in male 10/27/2015 Mild intermittent asthma without complication PAST SURGICAL HISTORY PAST SURGICAL HISTORY Procedure Laterality Date APPENDECTOMY LAPAROSCOPY SURG CHOLECYSTECTOMY Cholecystectomy, lap PAST SURGICAL HISTORY OF Bilateral OD 04/03/2020, OS - 02/06/2020 TONSILLECTOMY & ADENOIDECTOMY <AGE 13 VASECTOMY UNI/BI SPX W/POSTOP SEMEN EXAMS FAMILY HISTORY: Rheumatoid arthritis reportedly runs in his family FAMILY HISTORY Problem Relation Age of Onset Stroke Mother other (rheumatoid arthritis) Maternal Grandmother Colon Cancer Maternal Grandfather Colon Cancer Paternal Grandfather Brain Cancer Son 23 Aneurysm Son SOCIAL HISTORY: Previous alcohol and tobacco use, has quit 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 Vaping Use Vaping Use: Never used Substance Use Topics Alcohol use: Not Currently Comment: Sober since 07/2019 Drug use: Yes Comment: sporadic marijuana MEDICATIONS Current Outpatient Medications Medication Sig traZODone (DESYREL) 150 mg tablet Take 1 tablet by mouth daily at bedtime. anastrozole (ARIMIDEX) 1 mg tablet Take 1 tablet by mouth one time a week. testosterone cypionate (DEPO-TESTOSTERONE) 200 mg/mL injection Inject 1.0 cc every 2 weeks celecoxib (CELEBREX) 200 mg capsule Take 1 capsule by mouth once daily. albuterol HFA (VENTOLIN HFA) 90 mcg/actuation inhaler Inhale 2 Puffs as instructed every 4 hours as needed. colchicine 0.6 mg tablet Take 2 tabs, wait 1 hour then take 1 tab. Take 1 tab daily after gabapentin (NEURONTIN) 600 mg tablet Take 1 tablet by mouth three times daily for 90 days. fluticasone-vilanterol (BREO ELLIPTA) 100-25 mcg/dose inhaler Inhale 1 Inhalation as instructed once daily. tiZANidine (ZANAFLEX) 4 mg tablet Take 1 tablet by mouth at bedtime as needed (muscle spasms). potassium chloride SR (MICRO-K) 10 mEq CR capsule Take 1 capsule by mouth four times daily. Syringe with Needle, Safety 3 mL 22 gauge x 1 syrg 1 Each every 2 weeks. Omeprazole Magnesium (PRILOSEC OTC) 20 mg tablet Take 1 tablet by mouth daily before breakfast. 1/2 hr before meal. tamsulosin (FLOMAX) 0.4 mg Take 1 capsule by mouth daily at bedtime. lisinopril-hydroCHLOROthiazide (PRINZIDE,ZESTORETIC) 10-12.5 mg per tablet Take 1 tablet by mouth every morning. simvastatin (ZOCOR) 40 mg tablet Take 1 tablet by mouth daily at bedtime. probenecid 500 mg tablet Take 1 tablet by mouth twice daily. montelukast (SINGULAIR) 10 mg tablet Take 1 tablet by mouth daily at bedtime. sildenafil (VIAGRA) 100 mg tablet Take one pill as needed 30-60 minutes prior to sexual activity iv contrast (will be provided with radiology test) MRI wrist LT Inject, intravenously, once for 1 dose. No IV access, insert saline lock prior to the beginning of sedation, infusion, injection of imaging exam. Discontinue saline lock post exam. If Pt. has a central line or IVAD, may access for administration according to line specific nursing protocol. Once exam is complete flush line and de-access according to line specific nursing protocol in the MR contrast administration guidelines link. predniSONE (DELTASONE) 10 mg tablet 20 mg x 1 week then 15 mg x 1 week then 10 mg until follow up ALLERGIES ALLERGIES Allergen Reactions Cycline-250 Swelling All family of cyclines Sumycin [Tetracycli* Swelling PHYSICAL EXAM VITAL SIGNS: BP 130/73 Pulse 43 Temp (Src) 97.8 (Temporal) Ht 5' 6 (1.68m) Wt 165 lb (74.8kg) BMI 26.64 kg/(m^2). GENERAL: Alert and oriented, appears stated age. In no acute distress. EYES: PERRL, EOMI, anicteric sclerae, no conjunctival injection HENT: Normal external examination of the ears and nose, lips, oropharynx and tongue. No oropharyngeal lesions or exudate. No oral or nasal sores. Dentures in place NECK: No mass or asymmetry. No lymphadenopathy RESPIRATORY: Normal respiratory effort. Clear to auscultation bilaterally CARDIOVASCULAR: Regular in rate and rhythm without murmurs, rubs, or gallops ABDOMEN: Soft, nontender, nondistended NEUROLOGIC: No gross focal neurologic deficits. Cranial nerves II-XII grossly intact. SKIN: No rash, thickening, nodules, discoloration. Normal nails. MSK: Normal range of motion, no deformities, no swelling, and no tenderness in the hands, wrists, elbows, shoulders, spine, hips, knees, ankles, feet except as noted below: Erythema over MCPs, some PIPs, left wrist Tenderness in left wrist with diffuse swelling from his first CMC 2 to 3 cm proximally from radial styloid Significant tenderness out of proportion to exam throughout, could not complete joint exam due to tenderness LABS Reviewed in Epic, notable for: 02/05/2022: Uric acid 3.9 Normal CBC Bilirubin 1.8 Normal LFTs Creatinine 0.96, GFR 90 CBC Latest Ref Rng & Units 10/11/2020 11/29/2020 02/05/2022 05/14/2022 WBC 3.70 - 11.00 k/uL 8.75 8.41 8.52 7.26 HEMOGLOBIN 13.0 - 17.0 g/dL 18.9(H) 19.0(H) 16.6 15.9 HEMATOCRIT 39.0 - 51.0 % 54.3(H) 59.2(H) 50.1 46.7 PLATELETS 150 - 400 k/uL 221 232 254 203 ABS NEUT (ANC) 1.45 - 7.50 k/uL 4.79 4.62 - 4.27 ABS LYMPH 1.00 - 4.00 k/uL 2.50 2.40 - 1.97 CMP Latest Ref Rng & Units 11/29/2020 02/15/2021 02/05/2022 05/14/2022 SODIUM 136 - 144 mmol/L 140 139 137 135(L) POTASSIUM 3.7 - 5.1 mmol/L 4.3 4.1 4.4 3.9 CHLORIDE 97 - 105 mmol/L 101 101 100 101 CO2 22 - 30 mmol/L 27 24 27 28 GLUCOSE 74 - 99 mg/dL 86 90 96 93 BUN 9 - 24 mg/dL 13 20 16 11 CREATININE 0.73 - 1.22 mg/dL 1.05 1.00 0.96 0.97 CALCIUM, TOTAL 8.5 - 10.2 mg/dL 9.3 9.5 9.7 9.1 AST 14 - 40 U/L 22 18 18 11(L) ALT 10 - 54 U/L 28 21 17 11 ALKALINE PHOSPHATASE 38 - 113 U/L 71 55 59 59 Uric Acid Latest Ref Rng & Units 11/01/2019 11/29/2020 02/15/2021 02/05/2022 URIC ACID 4.0 - 8.1 mg/dL 5.6 6.2 5.2 3.9(L) ESR, WSR Latest Ref Rng & Units 01/29/2020 05/24/2020 09/10/2020 WSR 0 - 15 mm/hr 2 2 2 CRP Latest Ref Rng & Units 01/29/2020 05/24/2020 09/10/2020 CRP <0.9 mg/dL 0.3 0.2 <0.3 RF and CCP Latest Ref Rng & Units 05/24/2020 RHEUMATOID FACTOR <16 IU/mL <10 CCP ANTIBODY, IGG <20 Units <15 Hepatitis Screen Latest Ref Rng & Units 06/18/2020 HEPBCOTOL Negative Negative HEPSABQ Negative Negative HEPCABEIA Negative Negative HBSAGR Negative Negative TB Screen Latest Ref Rng & Units 06/18/2020 TBGINT - No evidence of current or previous infection with Mycobacterium tuberculosis. TBGRES Negative Negative Antibodies Latest Ref Rng & Units 01/29/2020 JEFF Negative Negative JEFF TITER Negative Negative JEFF PATTERN - Not applicable for negative result. ANCA Latest Ref Rng & Units 09/10/2020 MYELOPEROXIDASE ANTIBODY (MPO) <1.0 AI Test not performed on samples negative by immunofluorescence. PROTEINASE-3 ANTIBODY <1.0 AI Test not performed on samples negative by immunofluorescence. P-ANCA FLUORESCENCE Negative Negative C-ANCA FLUORESCENCE Negative Negative PANCA <1.0 AI Test not performed on samples negative by immunofluorescence. CANCA <1.0 AI Test not performed on samples negative by immunofluorescence. IMAGING Reviewed in [facility], notable for: 04/21/2022 x-ray wrist left: Chondrocalcinosis, scattered osteophytes ASSESSMENT Margy Corral is a 61 year old White male with a history of gout, cervical degenerative disc disease who presents to rheumatology clinic for follow-up of joint pain CPPD versus seronegative rheumatoid arthritis. At this time he is presenting with swelling more consistent with tendinitis of his left wrist than true synovitis. He certainly has chondrocalcinosis so we will do secondary work-up for CPPD serologically. He is unclear if he had improvement in previous trials, notes document he had some improvement in steroids, offered steroid trial again and he accepted. We will get MRI for further characterization of his left wrist as that is his biggest concern and impedes his ability to adequately do his job on a regular basis. If he responds well to the prednisone, pending what MRI shows we may need to escalate therapy to TNF inhibition if there is concern for rheumatoid arthritis versus putting back on hydroxychloroquine for CPPD prevention. Offered steroid trial, discussed risks of steroids with Celebrex. Should be less gastritis risk however it is still a possibility.. Offered PPI, declined at this time. Can last picker [id number] if he wishes or send a message if he would like to start it. He declines any local steroids stating that he will not get any injections without sedation. IMPRESSIONS Diagnoses: (M11.20) Calcium pyrophosphate deposition disease (CPPD) (primary encounter diagnosis) (M25.531, M25.532) Pain in both wrists (M19.90) Inflammatory arthritis PLAN 1. Labs and imaging as below 2. Prednisone taper as below 3. MRI left wrist 4. Continue probenecid for gout, exact manifestations of gout unclear at this time, will clarify at next visit 5. Follow-up 2 to 4 weeks to discuss results and next steps Orders this visit: Office Visit on 05/14/22 XR HAND GENERAL 3V PA/LAT/OBL BILATERAL XR WRIST 2V AP/LAT BILATERAL MRI WRIST WO/W IVCON LT FERRITIN BLD PTH INTACT BLD PHOSPHORUS INORGANIC MAGNESIUM BLD C-REACTIVE PROTEIN (CRP) SED RATE WESTERGREN COMP METABOLIC PANEL CBC + DIFF RHEUMATOID FACTOR BL CCP ANTIBODY IGG HIV 1 2 COMBO(AG/AB),WITH REFLEX TO DIFFERENTIATION BLOOD TB SCREEN HEP B SURF AG SCRN HEP B SURF AB QUAL HEP B CORE AB TOTAL HEP C AB IA W/CONF SCRN iv contrast (will be provided with radiology test) predniSONE (DELTASONE) 10 mg tablet Return in about 4 weeks (around 06/11/2022). I spent a total of 62 minutes on the date of the service which included preparing to see the patient, [id number] patient care, completing clinical documentation, obtaining and/or reviewing separately obtained history, performing a medically appropriate examination, counseling and educating the patient/family/caregiver, and ordering medications, tests, or procedures. This note was partially generated with the assistance of [employer] voice recognition software. An attempt was made to correct any dictation errors however there may be some incorrect words, spellings, and punctuation. Ashley Antony MD Rheumatology Date: May 14, 2022 Time: 10:32 AM documented in this encounter [facility] 04-20-2022 Miscellaneous Notes OK to refill as ordered Marianne Che MD Patient phones requesting refills as follows: Requested Prescriptions Pending Prescriptions Disp Refills traZODone (DESYREL) 150 mg tablet 30 tablet 11 Sig: Take 1 tablet by mouth daily at bedtime. anastrozole (ARIMIDEX) 1 mg tablet 12 tablet 3 Sig: Take 1 tablet by mouth one time a week. testosterone cypionate (DEPO-TESTOSTERONE) 200 mg/mL injection 10 mL 1 Sig: Inject 1.0 cc every 2 weeks MAYRA-02/06/22 Labs-02/05/22 NOV-none med filled 04/15/21 Please review and advise. Gill Palecnia LPN documented in this encounter [facility] 04-20-2022 Miscellaneous Notes The following approved medication requests have been transmitted electronically. Requested Prescriptions Pending Prescriptions Disp Refills celecoxib (CELEBREX) 200 mg capsule 30 capsule 5 Sig: Take 1 capsule by mouth once daily. albuterol HFA (VENTOLIN HFA) 90 mcg/actuation inhaler 18 g 1 Sig: Inhale 2 Puffs as instructed every 4 hours as needed. Jonny Flores APRN.WENDY Patient phones requesting refills as follows: Requested Prescriptions Pending Prescriptions Disp Refills celecoxib (CELEBREX) 200 mg capsule 30 capsule 5 Sig: Take 1 capsule by mouth once daily. albuterol HFA (VENTOLIN HFA) 90 mcg/actuation inhaler 18 g 1 Sig: Inhale 2 Puffs as instructed every 4 hours as needed. MAYRA-02/06/22 Labs-02/05/22 NOV-none Please review and advise. Gill Palencia LPN documented in this encounter [facility] 03-23-2022 Miscellaneous Notes OK to refill as ordered Marianne Che MD Pt calls to report that this is the dose he is supposed to be taking of gabapentin and someone sent in 100 mg. Gabapentin 600 mg was put in as a med update and pt reports that is the correct dose. Pt reports he told the pharmacy not to fill the rx for 100 mgs. Pt is asking for the correct dose to go to the pharamcy. Patient has been identified by name and date of : Yes Requested Prescriptions Pending Prescriptions Disp Refills gabapentin (NEURONTIN) 600 mg tablet 90 tablet 2 Sig: Take 1 tablet by mouth three times daily for 90 days. RX INSTRUCTIONS: Patient aware RX will be sent to pharmacy. No need to notify patient. Melva Perera LPN documented in this encounter [facility] 03-17-2022 Miscellaneous Notes The following approved medication requests have been transmitted electronically. Requested Prescriptions Pending Prescriptions Disp Refills fluticasone-vilanterol (BREO ELLIPTA) 100-25 mcg/dose inhaler 1 Each 11 Sig: Inhale 1 Inhalation as instructed once daily. Jonny Flores APRN.WENDY Patient phones requesting refills as follows: Requested Prescriptions Pending Prescriptions Disp Refills fluticasone-vilanterol (BREO ELLIPTA) 100-25 mcg/dose inhaler 1 Each 11 Sig: Inhale 1 Inhalation as instructed once daily. MAYRA-02/06/22 Labs-02/05/22 NOV-none Please review and advise. Gill Palencia LPN documented in this encounter [facility] 03-17-2022 Miscellaneous Notes The following approved medication requests have been transmitted electronically. Requested Prescriptions Pending Prescriptions Disp Refills tiZANidine (ZANAFLEX) 4 mg tablet 30 tablet 5 Sig: Take 1 tablet by mouth at bedtime as needed (muscle spasms). Jonny Flores APRN.WENDY Patient phones requesting refills as follows: Requested Prescriptions Pending Prescriptions Disp Refills tiZANidine (ZANAFLEX) 4 mg tablet 30 tablet 5 Sig: Take 1 tablet by mouth at bedtime as needed (muscle spasms). MAYRA-02/06/22 Labs-02/05/22 NOV-none med filled 09/22/21 Please review and advise. Gill Palencia LPN documented in this encounter [facility] 03-11-2022 History of Present illness Narrative Radiology Service Progress Note PATIENT NAME: Margy Corral DATE OF SERVICE: March 11, 2022 TIME: 8:19 AM PATIENT IDENTITY VERIFICATION COMPLETED USING TWO (2) IDENTIFIERS: Name and Date of confirmed by patient verbally. FALL SCREENING: Has the patient had 2 falls in the last year or 1 fall with injury or currently using an Ambulatory Assistive Device (Walker, Cane, Wheelchair, Crutches, etc.)? No PATIENT GENDER DATA: Male PATIENT RELEVANT IMPLANT DATA REVIEWED: Yes RADIOLOGY DEPARTMENT: MR; Exam(s) Completed: Upper MSK: Shoulder, right PERIPHERAL IV DATA: Not applicable SIGNED BY: RT Linda(R) March 11, 2022 8:19 AM documented in this encounter [facility] 02-25-2022 Miscellaneous Notes Notified pt via Beviihart of results from PCP below. If questions to contact the office. Lindsey Russo Ma Please notify patient that his lab results all look OK for earlier in the month Stay on the same medications and follow up as planned Marianne Che MD documented in this encounter [facility] 02-19-2022 History of Present illness Narrative Brett Haney MD Department of Orthopaedics Orthopaedics [address] [place] [id number] Dept: [phone] Dept February 19, 2022 CHIEF COMPLAINT: Established Patient and Pain of the Left Shoulder and Established Patient and Pain of the Right Shoulder HPI Patient here today for bilateral shoulder pain, R>L. 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 New x-ray today at [facility]. ASSESSMENT: M54.12 Cervical radiculopathy (primary encounter diagnosis) M25.511, G89.29, M25.512 Chronic pain of both shoulders M48.02 Spinal stenosis of cervical region PLAN: Patient is quite frustrated with needing bit of a difficult problem to square away. He certainly has some cervical issues but he also has chronic multilevel pain issues. He was evaluated with the chronic pain management program but was a bit displeased with the situation. Also, his main problem is he is a bit forced into continuing to work but I discussed with him the fact that if he is not able to order possible to get any kind of surgery in the first place and makes both the cervical issue and potential shoulder issues troublesome. He feels still that there issues going on with the shoulders and primarily the right. We will get an MRI of the right shoulder for further evaluation and planning. Mr. Margy Corral was advised as to contrast therapies and/or to take analgesics/anti-inflammatories as needed and all contraindications were reviewed. OBJECTIVE: Mr. Margy Corral is a pleasant 61 year old in no apparent distress. Gen:There were no vitals taken for this visit. nl development, non obese, no deformities ENT: Normocephalic, normal hearing, moist mucosa CV: Pulses:Radial= 2+ and symmetric, capillary refill < 2 secs, no peripheral edema/varicosities Skin: no rash, bruising or lesions. Good turgor. Psych: cooperative and appropriate, alert and oriented x 3, good mood and affect. Musculoskeletal: Patient remains with some stiff motion of the cervical spine and again positive Spurling's the has some mild tenderness over the rotator cuff insertion in both shoulders, right worse than left. He has some weakness with supraspinatus testing as well. He has overall relatively good motion lacking just a little bit of terminal forward elevation, 50 degrees of external rotation and internal rotation to the upper lumbar spine. Imaging: IMPRESSION: Bilateral acromioclavicular osteoarthritis with chondrocalcinosis and bilateral subacromial subdeltoid calcific bursitis. Assemblyman Or Woman: PSCB Transcribe Date/Time: Feb 19 2022 8:20A Dictated by : GORDO CHAPIN DO This examination was interpreted and the report reviewed and electronically signed by: GORDO CHAPIN DO on Feb 19 2022 8:26AM EST Results-Findings * * *Final Report* * * DATE OF EXAM: Feb 19 2022 7:42AM [id number] - XR SHLDR >/=3V AP/KIMBERLYN AP/OTHR RT / PROCEDURE REASON: multiple diagnoses * * * * Physician Interpretation * * * * EXAMINATION: XR SHLDR >/=3V AP/KIMBERLYN AP/OTHR LT, XR SHLDR >/=3V AP/KIMBERLYN AP/OTHR RT PATIENT/TECHNOLOGIST PROVIDED HISTORY: hx of chronic [place] shoulder pain with numbness/tingling in both arms pain is at ac joint upper arms area with right being worse, no inj CLINICAL INFORMATION: 61 years old Male with Bilateral shoulder pain, unspecified chronicity TECHNIQUE: XR SHLDR >/=3V AP/KIMBERLYN AP/OTHR LT, XR SHLDR >/=3V AP/KIMBERLYN AP/OTHR RT Laterality: LEFT (accession [id number]), RIGHT (accession [id number]) Number of different views (projections): 3 views of each shoulder. COMPARISON: Radiographs 01/29/2020 RESULT: Right shoulder: No fracture. Glenohumeral joint space is maintained. Mild degenerative change acromioclavicular joint with chondrocalcinosis. Calcification in the subacromial subdeltoid region suggesting subacromial subdeltoid calcific bursitis. Acromiohumeral interval is maintained. Left shoulder: No fracture. Glenohumeral joint space is maintained. Moderate degenerative change acromioclavicular joint with chondrocalcinosis. Calcification in the subacromial subdeltoid region suggesting subacromial subdeltoid calcific bursitis. Acromiohumeral interval is maintained. Mild scoliosis and degenerative changes in the visualized cervicothoracic spine. Supporting Subjective Information Below: Past Surgical History: PAST SURGICAL HISTORY Procedure Laterality Date APPENDECTOMY LAPAROSCOPY SURG CHOLECYSTECTOMY Cholecystectomy, lap PAST SURGICAL HISTORY OF Bilateral OD 04/03/2020, OS - 02/06/2020 TONSILLECTOMY & ADENOIDECTOMY <AGE 13 VASECTOMY UNI/BI SPX W/POSTOP SEMEN EXAMS Medications: Current Outpatient Medications Medication Sig gabapentin (NEURONTIN) 600 mg tablet Take 1 tablet by mouth three times daily for 90 days. albuterol HFA (VENTOLIN HFA) 90 mcg/actuation inhaler Inhale 2 Puffs as instructed every 4 hours as needed. potassium chloride SR (MICRO-K) 10 mEq CR capsule Take 1 capsule by mouth four times daily. testosterone cypionate (DEPO-TESTOSTERONE) 200 mg/mL injection Inject 1.0 cc every 2 weeks Omeprazole Magnesium (PRILOSEC OTC) 20 mg tablet Take 1 tablet by mouth daily before breakfast. 1/2 hr before meal. tiZANidine (ZANAFLEX) 4 mg tablet Take 1 tablet by mouth at bedtime as needed (muscle spasms). tamsulosin (FLOMAX) 0.4 mg Take 1 capsule by mouth daily at bedtime. celecoxib (CELEBREX) 200 mg capsule Take 1 capsule by mouth once daily. lisinopril-hydroCHLOROthiazide (PRINZIDE,ZESTORETIC) 10-12.5 mg per tablet Take 1 tablet by mouth every morning. simvastatin (ZOCOR) 40 mg tablet Take 1 tablet by mouth daily at bedtime. probenecid 500 mg tablet Take 1 tablet by mouth twice daily. montelukast (SINGULAIR) 10 mg tablet Take 1 tablet by mouth daily at bedtime. traZODone (DESYREL) 150 mg tablet Take 1 tablet by mouth daily at bedtime. anastrozole (ARIMIDEX) 1 mg tablet Take 1 tablet by mouth one time a week. sildenafil (VIAGRA) 100 mg tablet Take one pill as needed 30-60 minutes prior to sexual activity fluticasone-vilanterol (BREO ELLIPTA) 100-25 mcg/dose inhaler Inhale 1 Inhalation as instructed once daily. colchicine 0.6 mg tablet Take 2 tabs, wait 1 hour then take 1 tab. Take 1 tab daily after Syringe with Needle, Safety 3 mL 22 gauge x 1 syrg 1 Each every 2 weeks. No current facility-administered medications for this visit. Allergies: Cycline-250 and Sumycin [Tetracycline] ROS: General (negative for fatigue, malaise, weight loss/gain) HEENT (negative for headache, earache, recent vision changes, sinus pain, sore throat) Respiratory (no recent shortness of breath, hemoptysis) CV (negative for chest tightness, palpitations) Musculoskeletal (see HPI) Psych (no depression, anxiety) Brett Haney MD documented in this encounter [facility] 02-19-2022 History of Present illness Narrative Radiology Service Progress Note PATIENT NAME: Margy Corral DATE OF SERVICE: February 19, 2022 TIME: 7:39 AM PATIENT IDENTITY VERIFICATION COMPLETED USING TWO (2) IDENTIFIERS: Name and Date of confirmed by patient verbally. FALL SCREENING: Has the patient had 2 falls in the last year or 1 fall with injury or currently using an Ambulatory Assistive Device (Walker, Cane, Wheelchair, Crutches, etc.)? No PATIENT GENDER DATA: Male PATIENT RELEVANT IMPLANT DATA REVIEWED: Not Applicable RADIOLOGY DEPARTMENT: General X-ray: Exam(s) Completed: Upper Extremity X-Ray(s): Shoulder, AP / TRUE AP / AXILLARY bilateral PERIPHERAL IV DATA: Not applicable SIGNED BY: RT Aurelio(R) February 19, 2022 7:39 AM documented in this encounter [facility] 02-13-2022 Miscellaneous Notes Addended by: JONNY FLORES on: 02/13/2022 11:49 AM Modules accepted: Orders Addended by: JONNY FLORES on: 02/13/2022 10:37 AM Modules accepted: Orders The following approved medication requests have been transmitted electronically. Requested Prescriptions Signed Prescriptions Disp Refills gabapentin (NEURONTIN) 100 mg capsule 180 capsule 2 Sig: Take 2 capsules by mouth three times daily for 90 days. Jonny Flores APRN.CNP PCP note on 02/06/22 says to increase gabapentin, but does not specifiy the increase. Please advise. Bk Neal LPN documented in this encounter [facility] 02-13-2022 Miscellaneous Notes Addended by: OJNNY FLORES on: 02/13/2022 11:21 AM Modules accepted: Orders documented in this encounter [facility] 02-12-2022 Miscellaneous Notes The following approved medication requests have been transmitted electronically. Requested Prescriptions Pending Prescriptions Disp Refills albuterol HFA (VENTOLIN HFA) 90 mcg/actuation inhaler 18 g 1 Sig: Inhale 2 Puffs as instructed every 4 hours as needed. Jonny Flores APRN.[employer] DEVELOPER Patient phones requesting refills as follows: Requested Prescriptions Pending Prescriptions Disp Refills albuterol HFA (VENTOLIN HFA) 90 mcg/actuation inhaler 18 g 1 Sig: Inhale 2 Puffs as instructed every 4 hours as needed. MAYRA-02/06/22 Labs-02/05/22 NOV-none med filled 12/15/21 Please review and advise. Gill Palencia LPN documented in this encounter [facility] 02-06-2022 History of Present illness Narrative Chief Complaint Patient presents with: F/U 6 Month HPI Margy Corral is a 61 year old male who presents here today for a medication follow up. Pt here today for a medication follow up and 6 month follow up. Pt states he has more to discuss due to his discussion recently with the Specialists he has been passed through and leading him to Pain Recovery. Smoking - Continues to not smoke. No alcohol usage. GI/Uro - Denies any stomach, bowel or urinary issues. Takes Flomax 0.4 mg once daily. ED - Uses Viagra prn. GERD - Stable with use of Prilosec 20 mg once daily. Hypogonadism - Receives Testosterone injections every 2 weeks and on Arimidex 1 mg once weekly. Pain - Chronic pain from his neck to his back and b/l shoulders; follows with multiple specialist from Ortho, Spine, Pain Management and Neurology pain. Pt states that he's been told he can take classes to help alleviate his pain. He did sign up for Ketamine Infusion to see if this alleviates some of his pain. Pt reports he does have some shoulder pain issues and will be following up Dr. Haney. Notes that his R shoulder pain does cause him to cry at night. Overall every day pain is a 7/10. Lipids/Glucose - On current regimen of Zocor 40 mg daily. Admits he's not watching his diet, but has lost over 60 lbs due to having issues with dentures. Doesn't do exercise other then work. Reports over the past 2-3 weeks he feels he has issues with his sugars. Notes he had an episode of feeling disoriented ate some sugar and symptoms resolved. . When at work when episodes come on he drinks OJ and this resolves. HTN - Denies checking BP at home or having symptoms of chest pain, sob or dizziness. On current regimen of Lisinopril-HCTZ 20-5 mg once daily and Potassium 1 mg 1 tab po QID. Gout - Stable with no flare ups on current regimen of Indomethacin 50 mg daily, Colchicine 0.6 mg prn and Probenecid 500 mg bid. Asthma - Stable with use of Breo Ellipta inhaler and Singulair 10 mg daily. Does not see Pulm anymore. Insomnia - Pt notes he's not able to get any sleep despite using Trazodone 150 gm daily and Melatonin. Pain keeps him up at night. Rheum - Has followed with Dr. Ángela Jefferson who states she couldn't help due to having OA and not RA. He begs to differ as he has swollen joints, wrist up into his thumb. Takes Plaquenil 200 mg 2 tabs daily and Leflunomide 20 mg daily. Pain left wrist, severe. Hypersensitive right lateral hand. Past medical history, appointments, medications, allergies reviewed. Previous Medical History PAST MEDICAL HISTORY Diagnosis Date Essential hypertension Gout Hyperlipidemia Hypogonadism in male 10/27/2015 Mild intermittent asthma without complication Previous Surgical History PAST SURGICAL HISTORY Procedure Laterality Date APPENDECTOMY LAPAROSCOPY SURG CHOLECYSTECTOMY Cholecystectomy, lap PAST SURGICAL HISTORY OF Bilateral OD 04/03/2020, OS - 02/06/2020 TONSILLECTOMY & ADENOIDECTOMY <AGE 13 VASECTOMY UNI/BI SPX W/POSTOP SEMEN EXAMS Family History FAMILY HISTORY Problem Relation Age of Onset Stroke Mother other (rheumatoid arthritis) Maternal Grandmother Colon Cancer Maternal Grandfather Colon Cancer Paternal Grandfather Brain Cancer Son 23 Aneurysm Son Patient Allergies ALLERGIES Allergen Reactions Cycline-250 Swelling All family of cyclines Sumycin [Tetracycli* Swelling Current Medications Current Outpatient Medications on File Prior to Visit Medication Sig albuterol HFA (VENTOLIN HFA) 90 mcg/actuation inhaler Inhale 2 Puffs as instructed every 4 hours as needed. potassium chloride SR (MICRO-K) 10 mEq CR capsule Take 1 capsule by mouth four times daily. Syringe with Needle, Safety 3 mL 22 gauge x 1 syrg 1 Each every 2 weeks. testosterone cypionate (DEPO-TESTOSTERONE) 200 mg/mL injection Inject 1.0 cc every 2 weeks Omeprazole Magnesium (PRILOSEC OTC) 20 mg tablet Take 1 tablet by mouth daily before breakfast. 1/2 hr before meal. tiZANidine (ZANAFLEX) 4 mg tablet Take 1 tablet by mouth at bedtime as needed (muscle spasms). tamsulosin (FLOMAX) 0.4 mg Take 1 capsule by mouth daily at bedtime. celecoxib (CELEBREX) 200 mg capsule Take 1 capsule by mouth once daily. lisinopril-hydroCHLOROthiazide (PRINZIDE,ZESTORETIC) 10-12.5 mg per tablet Take 1 tablet by mouth every morning. simvastatin (ZOCOR) 40 mg tablet Take 1 tablet by mouth daily at bedtime. probenecid 500 mg tablet Take 1 tablet by mouth twice daily. montelukast (SINGULAIR) 10 mg tablet Take 1 tablet by mouth daily at bedtime. gabapentin (NEURONTIN) 300 mg capsule Take 1 capsule by mouth three times daily for 180 days. traZODone (DESYREL) 150 mg tablet Take 1 tablet by mouth daily at bedtime. anastrozole (ARIMIDEX) 1 mg tablet Take 1 tablet by mouth one time a week. sildenafil (VIAGRA) 100 mg tablet Take one pill as needed 30-60 minutes prior to sexual activity fluticasone-vilanterol (BREO ELLIPTA) 100-25 mcg/dose inhaler Inhale 1 Inhalation as instructed once daily. leflunomide (ARAVA) 20 mg tablet Take 1 tablet by mouth once daily. hydrOXYchloroQUINE (PLAQUENIL) 200 mg tablet Take 2 tablets by mouth once daily. colchicine 0.6 mg tablet Take 2 tabs, wait 1 hour then take 1 tab. Take 1 tab daily after albuterol (PROVENTIL) 2.5 mg /3 mL (0.083 %) nebulizer solution Use 3 mL via nebulizer every 4 hours as needed for Wheezing/Shortness of Breath. Use over 5-15minutes. No current facility-administered medications on file prior to visit. Social History Social History Tobacco Use Smoking status: Former Packs/day: 0.30 Years: 30.00 Pack years: 9.00 Types: Cigarettes Smokeless tobacco: Never Tobacco comments: Stopped smoking 05/23/21. Vaping Use Vaping Use: Never used Substance Use Topics Alcohol use: Not Currently Comment: Sober since 07/2019 Drug use: Yes Comment: sporadic marijuana EXAM: BP 126/84 (BP Site: Right Arm, BP Position: Sitting, BP Cuff Size: Regular Adult) Pulse 68 Resp 16 Wt 74.8 kg (164 lb 12.8 oz) BMI 28.29 kg/m General Appearance: Well appearing, alert, in no acute distress, well-hydrated, well nourished.. Lungs: Lungs clear to auscultation. No wheezing, rhonchi, rales.. Heart: RRR without murmur, gallop, or rubs. No ectopy. Shoulders: pain with minimal movement Right hand: exquisitely tender to light palpation ulnar aspect Left wrist: extremely tender to light palpation. Health Maintenance List HIV SCREENING Never done SHINGRIX VACCINE(1 of 2) Never done COLORECTAL CANCER SCREENING Never done PNEUMOCOCCAL(2 - PCV) due on 08/20/2017 PROSTATE CANCER SCREENING DISCUSSION due on 12/15/2020 BP CONTROLLED (<130/80) due on 08/09/2021 INFLUENZA(1) due on 02/05/2022 COVID-19 VACCINE(5 - Booster for Pfizer series) due on 04/03/2022 ANNUAL PCP TEAM CHRONIC DISEASE VISIT due on 08/29/2022 DEPRESSION SCREENING due on 01/31/2023 DIABETES SCREEN due on 02/05/2025 DTAP,TDAP,TD(2 - Td or Tdap) due on 08/20/2026 LIPID SCREEN due on 02/05/2027 SPIROMETRY Completed HEPATITIS C SCREENING Completed Data reviewed None ASSESSMENT/PLAN: 1. Chronic pain of both shoulders - ICD9: 719.41, 338.29, ICD10: M25.511, G89.29, M25.512 (primary diagnosis) - CONSULT TO ORTHOPAEDICS 2. Spinal stenosis of cervical region - ICD9: 723.0, ICD10: M48.02 3. Chronic insomnia - ICD9: 780.52, ICD10: F51.04 4. Pain in both hands - ICD9: 729.5, ICD10: M79.641, M79.642 Increase neurontin May try wrist splint on left Follow up prn .Medical Decision Making: Problems: Moderate: New problem with uncertain prognosis Risk: Moderate: Drug management Medical Decision Making Level: 4 - Moderate Marianne Che MD documented in this encounter [facility] 02-06-2022 Miscellaneous Notes Pt scheduled at 11:20 am with PCP. Lindsey Russo Ma documented in this encounter [facility] 02-04-2022 Miscellaneous Notes Pt scheduled this Wednesday02/06/22 at 7:40 AM with Judy Urbina. Notified via [facility]. Advise to notify office if appt did not work for him. Kassidy Frank Ma Awaiting response back from pt on if he is willing to see one of our TOE CLOSING MACHINE TENDER. Kassidy Frank Ma documented in this encounter [facility] 02-03-2022 Miscellaneous Notes Left VM reminder of appt and office # for any questions or concerns. Gill Ochoa MA documented in this encounter [facility] 02-02-2022 History of Present illness Narrative Virtual Visit Patient consented to the encounter via virtual visit Present: patient [facility] February 04, 2022 Margy Corral is a 61 year old , part-time food preparation kitchen aide at [employer] who lives with a friend in [place], [place]. He was referred by Rangel Zuñiga MD ( [facility]) [address] [place] [address]. This consultation was shared with the referral source via the [facility] electronic medical record. The patient understanding of the reason for referral is unknown. Chief complaints: neck and mid back pain Constant electrical pain in the cervical and thoracic spine and bilateral arm to fingertips with numbness in bilateral hands Aggravating factors: cervical motion in all planes, reaching, lifting Alleviating factors: gabapentin Constant stabbing bilateral shoulder and wrist pain Aggravating factors: reaching, lifting Alleviating factors: nothing Current pain level is 9/10. Pain varies from 7-10+/10 Present Illness: PMH includes chronic pain syndrome, chronic cervical and thoracic spine pain, cervical spondylosis and cervical spine stenosis, HTN, HLD, gout, asthma, GERD 12/19/21 Rangel Zuñiga MD ( [facility]) Patient is a 61 y/o male, new patient, here for evaluation and management of cervical spondylosis and cervical spine stenosis. 01/29/20 he was seen for bilateral shoulder pain by Dr. Brett Haney and reported bilateral neck and shoulder pain w/ additional numbness that radiated into his hands. XR C Spine 01/30/20 showed degenerative changes in the cervical spine including moderate to severe foraminal encroachment C2-3, C3-4, and C6-7 on the right. He underwent PT w/ minimal relief. He was seen by Dr. Enrique Castillo 04/19/20 for further evaluation of worsening neck and b/l UE pain. He then underwent a repeat course of PT w/ no substantial benefit. MRI C Spine 05/30/20 showed multilevel degenerative changes w/ mild to moderate canal stenosis and foraminal narrowing at some levels. He underwent C6-7 interlaminar cervical epidural steroid injection 07/19/20 w/ Dr. Castillo and reported 90% improvement in pain. He underwent repeat cervical epidural steroid injections 05/09/21 and 09/12/21. After his last injection he reported no substantial improvement of his pain. MRI C Spine 11/27/21 showed cervical spondylosis w/ moderate canal stenosis at C4-5 and severe formaminal stenosis at C3-4. Dr. Castillo referred him here today for further evaluation of cervical spondylosis and cervical spine stenosis. Today, he reports that after his first injection he got relief for several months of his pain and numbness/tingling in the mid shoulder through his arms. The second injection lasted three months and the third only for a few days. He denies difficulty walking and significant issues with his balance. He can perform fine motor skills but this is dependent on the numbness of his fingers at the time. Today he reports that his fingers are half numb . When he raises his arms above 90 degrees he reports lightning pain down his back. He gets shocks when bending his neck laterally ASSESSMENT/PLAN (M48.02) Spinal stenosis of cervical region (primary encounter diagnosis) (M47.12) Cervical spondylosis with myelopathy We reviewed relevant imaging with him today. MRI C Spine 11/27/21 showed cervical spondylosis w/ moderate canal stenosis at C4-5 and severe formaminal stenosis at C3-4. I discussed that given his symptoms, PT for neck strengthening could be an important part in his treatment and management. I do not believe that the findings on his MRI explain all of his current symptoms. He endorses 24 pain, fatigue throughout the day, non-restorative sleep due to pain, and suffering from his pain. I believe he is likely suffering from chronic pain syndrome. I discussed that I cannot surgically treat pain that is happening 24 and do not recommend any surgery at this time. I recommended he see our [facility] and placed a consult today. Follow up: with me after seeing the [facility]. Previous pain treatments: physical therapy, medications, spinal injections Medication Tried: Membrane stabilizers: gabapentin NSAID's: Celebrex Muscle relaxants: tizanidine Opiates: no Benzodiazepines: no Antidepressants: trazodone Topicals: cream Other: CBD, THC Current Medications: Current Outpatient Medications Medication Sig albuterol HFA (VENTOLIN HFA) 90 mcg/actuation inhaler Inhale 2 Puffs as instructed every 4 hours as needed. potassium chloride SR (MICRO-K) 10 mEq CR capsule Take 1 capsule by mouth four times daily. Syringe with Needle, Safety 3 mL 22 gauge x 1 syrg 1 Each every 2 weeks. testosterone cypionate (DEPO-TESTOSTERONE) 200 mg/mL injection Inject 1.0 cc every 2 weeks Omeprazole Magnesium (PRILOSEC OTC) 20 mg tablet Take 1 tablet by mouth daily before breakfast. 1/2 hr before meal. tiZANidine (ZANAFLEX) 4 mg tablet Take 1 tablet by mouth at bedtime as needed (muscle spasms). tamsulosin (FLOMAX) 0.4 mg Take 1 capsule by mouth daily at bedtime. celecoxib (CELEBREX) 200 mg capsule Take 1 capsule by mouth once daily. lisinopril-hydroCHLOROthiazide (PRINZIDE,ZESTORETIC) 10-12.5 mg per tablet Take 1 tablet by mouth every morning. simvastatin (ZOCOR) 40 mg tablet Take 1 tablet by mouth daily at bedtime. probenecid 500 mg tablet Take 1 tablet by mouth twice daily. montelukast (SINGULAIR) 10 mg tablet Take 1 tablet by mouth daily at bedtime. gabapentin (NEURONTIN) 300 mg capsule Take 1 capsule by mouth three times daily for 180 days. traZODone (DESYREL) 150 mg tablet Take 1 tablet by mouth daily at bedtime. anastrozole (ARIMIDEX) 1 mg tablet Take 1 tablet by mouth one time a week. sildenafil (VIAGRA) 100 mg tablet Take one pill as needed 30-60 minutes prior to sexual activity fluticasone-vilanterol (BREO ELLIPTA) 100-25 mcg/dose inhaler Inhale 1 Inhalation as instructed once daily. leflunomide (ARAVA) 20 mg tablet Take 1 tablet by mouth once daily. hydrOXYchloroQUINE (PLAQUENIL) 200 mg tablet Take 2 tablets by mouth once daily. colchicine 0.6 mg tablet Take 2 tabs, wait 1 hour then take 1 tab. Take 1 tab daily after albuterol (PROVENTIL) 2.5 mg /3 mL (0.083 %) nebulizer solution Use 3 mL via nebulizer every 4 hours as needed for Wheezing/Shortness of Breath. Use over 5-15minutes. No current facility-administered medications for this visit. [facility] checked and validated. All prescriptions have been APPROPRIATELY filled. No suspicious activity was identified. 02/04/2022 by Jannet Tesfaye APRN.MAGENTO DEVELOPER, DNP Functional Limitations: He works 20-23 hours/week. When home he tries to stay active. Emotional Symptoms include sadness, depression, crying spells, anxiety, frustration, irritability, anger. He denies suicidal / homicidal ideation. Sleep is fragmented by pain. Appetite is decreased since he had his teeth extracted and his dentures don't fit. He has unintentionally lost ~60# in the past year. Non-medical stresses are denied. Family involvement: Friend is supportive. Financial Status: Disability income and personal injury litigation are denied. Patient-Entered Data: Pain Recovery Scores 01/31/2022 2:06 PM 04/10/2020 9:35 AM LBP over last 6 months - - Ongoing back pain problem - - START back screen total score - 8 START back screen distress score - 5 START back screen risk score - 5 [High risk for prolonged disability] Oswestry disability index score - - PCS rumination subscore 6 - PCS magnification subscore 2 - PCS helplessness subscore 7 - PCS total score 15 - PHQ-9 01/31/2022 12/15/2021 01/18/2018 Score 10 11 9 IRIS - 7 SCORES 01/31/2022 IRIS-7 Score 5 PROMIS Global Health - (T-Scores - the mean of general population = 50. Five points is a clinically meaningful difference.) 12/15/2021 08/23/2021 02/22/2021 Physical T-Score 34.9 32.4 34.9 Mental T-Score 43.5 41.1 41.1 No flowsheet data found. Allergies: Cycline-250 and Sumycin [Tetracycline] PAST MEDICAL HISTORY Diagnosis Date Essential hypertension Gout Hyperlipidemia Hypogonadism in male 10/27/2015 Mild intermittent asthma without complication PAST SURGICAL HISTORY Procedure Laterality Date APPENDECTOMY LAPAROSCOPY SURG CHOLECYSTECTOMY Cholecystectomy, lap PAST SURGICAL HISTORY OF Bilateral OD 04/03/2020, OS - 02/06/2020 TONSILLECTOMY & ADENOIDECTOMY <AGE 13 VASECTOMY UNI/BI SPX W/POSTOP SEMEN EXAMS Anesthesia: yes Schizophrenia: no CHF: no Uncontrolled HTN: no Recent NM: no Arrythmias: no Afib: no Hyperthyroid: no Aortic Stenosis: no Liver Failure: no Increased ICP: no Cystitis: no Seizure disorder: no Psychiatric illness: Previous diagnoses: Depression, anxiety Out-Patient Therapy: Denied Psychiatric hospital admissions: Denied Suicide attempts: Denied Self-mutilation: Denied Medications tried: Denied Substance use: Nicotine: Quit smoking 05/27 Alcohol: He quit drinking July 2019. Prior he drank ~6-8 shots daily after work. Other than one DUI in ~2001 he denied consequences due to his drinking. Recreational drugs: In 1988 he smoked crack for 6 months after he lost his marriage, job and house. Currently he uses marijuana a couple days/week. He denies chemical dependence treatment or 12-step involvement for alcohol or drugs. He states the only reason he doesn't get a medical marijuana card is because you can't get one if you have a hand gun. Prescription medications: Denied FAMILY HISTORY: Chronic pain: Father Substance use disorders: Unknown Psychiatric illness: Unknown Developmental History: He was reared the youngest of 2 by both parents until they when he was young. He stayed with his father but saw his mother often. Nurture was good. Discipline was good. Abuse, somatization, and serious disciplinary problems were denied. Socialization was good. Educational level: high school graduate. Average grades were C. Work history: foreign food cook specialty Mar[employer] and . He had 2 children, son from brain cancer Mental status: She was fully cooperative. Eye contact was good. Affect was euthymic. Speech was spontaneous and fluent without dysarthria, normal in rate, volume and articulation, and clear, coherent, and relevant. Thoughts were logical and relevant without delusional thinking or hallucinations. Somatic preoccupation was moderate. Judgment and insight were good. Attention span and concentration appeared normal. He was oriented to time, place and person. PHYSICAL EXAMINATION: Deferred due to virtual visit Impressions: Chronic pain syndrome Chronic cervical and thoracic spine pain Cervical spondylosis Cervical spine stenosis Pain disorder associated with psychological and physical factors H/o alcohol use, in remission per patient report Marijuana use Treatment Plan: 61 year old male with chronic neck and mid back pain, bilateral arm pain, bilateral shoulder pain. Gabapentin provides some relief as does marijuana. Recommend participation in the [facility] (CPNP) and / or attending the 2 hours educational [employer] Program, both of which he declined due to work. Schedule with Elijah Mckeon DO (Anesthesiology) for ketamine infusions. Patient understands a utility worker driver is required for the procedure. Discussed the importance of utilizing nonpharmacologic techniques to help manage pain and mood and promote self empowerment: - Mindfulness, meditation, distraction, concept of hurt vs harm - Low impact aerobic exercise, stretching, yoga, Robin Chi - [place] [employer] website Return visit: As desired Maintain contact by phone or MyChart. I have confirmed and edited as necessary, the PFSH and ROS obtained by others. I spent a total of 60 minutes on the date of the service which included preparing to see the patient, [id number] patient care, completing clinical documentation, obtaining and/or reviewing separately obtained history, counseling and educating the patient/family/caregiver, and ordering medications, tests, or procedures. Jannet Tesfaye APRN.MELISSA NGUYEN documented in this encounter [facility] 12-19-2021 History of Present illness Narrative SPINE SURGERY NEW PATIENT VIRTUAL VISIT PCP: Marianne Che MD REFERRING PROVIDER: Enrique Castillo MD CHIEF COMPLAINT: Cervical spondylosis, cervical spine stenosis PRECIPITATING EVENT: None DURATION OF SYMPTOMS: Progressive over several years SUBJECTIVE HISTORY OF PRESENT ILLNESS: This is a scheduled zoom virtual visit. Margy Corral is a 61 year old male presenting alone. Patient is a 61 y/o male, new patient, here for evaluation and management of cervical spondylosis and cervical spine stenosis. 01/29/20 he was seen for bilateral shoulder pain by Dr. Brett Haney and reported bilateral neck and shoulder pain w/ additional numbness that radiated into his hands. XR C Spine 01/30/20 showed degenerative changes in the cervical spine including moderate to severe foraminal encroachment C2-3, C3-4, and C6-7 on the right. He underwent PT w/ minimal relief. He was seen by Dr. Enrique Castillo 04/19/20 for further evaluation of worsening neck and b/l UE pain. He then underwent a repeat course of PT w/ no substantial benefit. MRI C Spine 05/30/20 showed multilevel degenerative changes w/ mild to moderate canal stenosis and foraminal narrowing at some levels. He underwent C6-7 interlaminar cervical epidural steroid injection 07/19/20 w/ Dr. Castillo and reported 90% improvement in pain. He underwent repeat cervical epidural steroid injections 05/09/21 and 09/12/21. After his last injection he reported no substantial improvement of his pain. MRI C Spine 11/27/21 showed cervical spondylosis w/ moderate canal stenosis at C4-5 and severe formaminal stenosis at C3-4. Dr. Castillo referred him here today for further evaluation of cervical spondylosis and cervical spine stenosis. Today, he reports that after his first injection he got relief for several months of his pain and numbness/tingling in the mid shoulder through his arms. The second injection lasted three months and the third only for a few days. He denies difficulty walking and significant issues with his balance. He can perform fine motor skills but this is dependent on the numbness of his fingers at the time. Today he reports that his fingers are half numb . When he raises his arms above 90 degrees he reports lightning pain down his back. He gets shocks when bending his neck laterally. Ever since starting injections his pain has progressively worsened. AMBULATORY STATUS: Independent Community Distances ANTIPLATELET OR ANTICOAGULATION STATUS: No PREVIOUS CONSERVATIVE TREATMENTS: Epidural Blocks: Date(s) 07/19/20, 05/09/21, 09/12/21 PT PREVIOUS SPINAL SURGERY: None ACTIVE PROBLEM LIST Asthma, Moderate Persistent, Well-Controlled Hypogonadism in Male Idiopathic Chronic Gout Without Tophus Hyperlipidemia, Mixed Seasonal Allergies Adjustment Disorder With Mixed Anxiety and Depressed Mood Adjustment Insomnia Hypertension, Essential Tongue Lesion Cervical Radiculopathy Spinal Stenosis of Cervical Region Cervical Paraspinal Muscle Spasm Cervical Spondylosis Without Myelopathy PAST MEDICAL HISTORY Diagnosis Date Essential hypertension Gout Hyperlipidemia Hypogonadism in male 10/27/2015 Mild intermittent asthma without complication PAST SURGICAL HISTORY Procedure Laterality Date APPENDECTOMY LAPAROSCOPY SURG CHOLECYSTECTOMY Cholecystectomy, lap PAST SURGICAL HISTORY OF Bilateral OD 04/03/2020, OS - 02/06/2020 TONSILLECTOMY & ADENOIDECTOMY <AGE 13 VASECTOMY UNI/BI SPX W/POSTOP SEMEN EXAMS FAMILY HISTORY Problem Relation Age of Onset Stroke Mother other (rheumatoid arthritis) Maternal Grandmother Colon Cancer Maternal Grandfather Colon Cancer Paternal Grandfather Brain Cancer Son 23 Aneurysm Son Social History Tobacco Use Smoking status: Former Smoker Packs/day: 0.30 Years: 30.00 Pack years: 9.00 Types: Cigarettes Smokeless tobacco: Never Used Tobacco comment: Stopped smoking 05/23/21. Vaping Use Vaping Use: Never used Substance Use Topics Alcohol use: Not Currently Comment: Sober since 07/2019 Drug use: Yes Comment: sporadic marijuana ALLERGIES Allergen Reactions Cycline-250 Swelling All family of cyclines Sumycin [Tetracycli* Swelling MEDICATIONS: albuterol HFA (VENTOLIN HFA) 90 mcg/actuation inhaler Inhale 2 Puffs as instructed every 4 hours as needed. potassium chloride SR (MICRO-K) 10 mEq CR capsule Take 1 capsule by mouth four times daily. Syringe with Needle, Safety 3 mL 22 gauge x 1 syrg 1 Each every 2 weeks. testosterone cypionate (DEPO-TESTOSTERONE) 200 mg/mL injection Inject 1.0 cc every 2 weeks Omeprazole Magnesium (PRILOSEC OTC) 20 mg tablet Take 1 tablet by mouth daily before breakfast. 1/2 hr before meal. tiZANidine (ZANAFLEX) 4 mg tablet Take 1 tablet by mouth at bedtime as needed (muscle spasms). tamsulosin (FLOMAX) 0.4 mg Take 1 capsule by mouth daily at bedtime. celecoxib (CELEBREX) 200 mg capsule Take 1 capsule by mouth once daily. lisinopril-hydroCHLOROthiazide (PRINZIDE,ZESTORETIC) 10-12.5 mg per tablet Take 1 tablet by mouth every morning. simvastatin (ZOCOR) 40 mg tablet Take 1 tablet by mouth daily at bedtime. probenecid 500 mg tablet Take 1 tablet by mouth twice daily. montelukast (SINGULAIR) 10 mg tablet Take 1 tablet by mouth daily at bedtime. gabapentin (NEURONTIN) 300 mg capsule Take 1 capsule by mouth three times daily for 180 days. traZODone (DESYREL) 150 mg tablet Take 1 tablet by mouth daily at bedtime. anastrozole (ARIMIDEX) 1 mg tablet Take 1 tablet by mouth one time a week. sildenafil (VIAGRA) 100 mg tablet Take one pill as needed 30-60 minutes prior to sexual activity fluticasone-vilanterol (BREO ELLIPTA) 100-25 mcg/dose inhaler Inhale 1 Inhalation as instructed once daily. leflunomide (ARAVA) 20 mg tablet Take 1 tablet by mouth once daily. hydrOXYchloroQUINE (PLAQUENIL) 200 mg tablet Take 2 tablets by mouth once daily. colchicine 0.6 mg tablet Take 2 tabs, wait 1 hour then take 1 tab. Take 1 tab daily after albuterol (PROVENTIL) 2.5 mg /3 mL (0.083 %) nebulizer solution Use 3 mL via nebulizer every 4 hours as needed for Wheezing/Shortness of Breath. Use over 5-15minutes. indomethacin (INDOCIN) 50 mg capsule Take 50 mg by mouth. REVIEW OF SYSTEMS: GENERAL: No weight loss or malaise MUSCULOSKELETAL: Pain in the lower back and neck, numbness/tingling in the bilateral arms and digits. NEURO: No history of headaches, syncope, paralysis, seizures or tremors Patient Entered Questionnaires Spine Questions 12/15/2021 Pain Location: Upper back/torso Pain Duration: More than 5 years Pain over last 6 months: Every day or nearly every day in the past 6 months Symptoms from neck/cervical spine: Yes Employment Status: Working now Involved in law suit/legal claim: No Spine Red Flags 04/17/2020 12/19/2020 Any type of cancer: No No Unexplained fever: No No Bowel or bladder disfunction: No No Unintentional weight loss: No No Osteoporosis: No No Neck Questionnaires 12/15/2021 Benzel Modified JACLYN Score 13 (A lower score indicates increased pain and issues.) Low Back Pain Questionnaires 04/10/2020 STarT Risk Score 5 (High risk for prolonged disability) STarT Distress Score 5 STarT Total Score 8 PROMIS Score Percentiles Physical Health 11/29/2020 12/19/2020 12/15/2021 Physical Function Percentile 18* - 7 Sleep Percentile - 2 10 Fatigue Percentile 18* - 8 Pain Interference Percentile 18* - 7 PROMIS SOCIAL ROLE SCORE 04/10/2020 12/15/2021 Social Role Satisfaction Percentile 31 16* PROMIS Global Health Scale 02/22/2021 08/23/2021 12/15/2021 Physical Health Percentile 7 4 7 Mental Health Percentile 19* 19* 26* Percentiles provide an indication of how the patient's score ranks in relation to the general population. Higher percentile rankings indicate better function/quality of life. 50th percentile is the average of the general population and indicates half of respondents had a worse score. Depression Screening: PHQ-9 01/18/2018 12/15/2021 Score 9 11 PHQ-9 Self-harm Question 01/18/2018 12/15/2021 Thoughts that you would be better off , or of hurting yourself in some way 0 0 PHQ-9 Self-Harm (Item 9) response options: 0 Not at all 1 Several days 2 More than half the days 3 Nearly every day PHQ-9 Levels: 0-4 No to mild depression 5-9 Mild depression 10-14 Moderate depression 15-19 Moderately severe depression 20-27 Severe depression OBJECTIVE: PHYSICAL EXAM There were no vitals taken for this visit. GENERAL APPEARANCE: Well nourished, well developed, and no apparent distress. NEURO PSYCH: Patient oriented to person, place, and time. Mood pleasant. Benign affect. An extensive physical examination was not performed due to the virtual visit platform. MUSCULOSKELETAL VISUAL INSPECTION CERVICAL: WNL THORACIC: WNL LUMBAR: WNL GAIT: Normal. PROPRIOCEPTION: Normal. DATA REVIEW [facility] records independently reviewed Images independently reviewed with the patient MRI C Spine - 11/27/21 IMPRESSION: Cervical spondylosis with varying degrees of up to moderate spinal canal stenosis at C4-C5. Foraminal stenosis is up to severe in degree at C3-C4 as detailed. ASSESSMENT/PLAN (M48.02) Spinal stenosis of cervical region (primary encounter diagnosis) (M47.12) Cervical spondylosis with myelopathy 1. We reviewed relevant imaging with him today. 2. MRI C Spine 11/27/21 showed cervical spondylosis w/ moderate canal stenosis at C4-5 and severe formaminal stenosis at C3-4. 3. I discussed that given his symptoms, PT for neck strengthening could be an important part in his treatment and management. 4. I do not believe that the findings on his MRI explain all of his current symptoms. He endorses 24/7 pain, fatigue throughout the day, non-restorative sleep due to pain, and suffering from his pain. I believe he is likely suffering from chronic pain syndrome. 5. I discussed that I cannot surgically treat pain that is happening 24/7 and do not recommend any surgery at this time. I recommended [facility] see our [facility] and placed a consult today. 6. Follow up: with me after seeing the [facility]. The majority of the visit was spent counseling and/or coordinating care for the patient. Total face to face time plus preparation was 42 minutes. By signing my name below, I, Kurt Nelson, attest that this documentation has been prepared under the direction and in the presence of Dr. Zuñiga. Electronically signed, Kurt Nelson December 19, 2021 10:45 AM I agree with the Chief Complaint, ROS, and Past Histories independently gathered by the clinical ground support agent and the remaining scribed note accurately describes my personal service to the patient. SIGNATURE: Rangel Zuñiga MD PATIENT NAME: Margy Corral DATE: December 19, 2021 TIME: 10:45 AM PAGER: Raghavendra Zuñiga CC: PMD documented in this encounter [facility] 12-17-2021 Miscellaneous Notes Images from the original note were not included. Advised PA not needed, did leave detailed vm for patient letting him know may need to have pharmacy run brand name. Jennifer Higgins Ma Prior Authorization has been completed online at [employer] for Rosi Soto, will await response. Bhatti: [id number] Please keep encounter open until final decision has been received and documented from insurance company. Jennifer Higgins MA documented in this encounter [facility] 12-01-2021 Miscellaneous Notes Result sent via [employer] message at this time Spine surgery referral signed off Dr. Castillo reviewed patient's MRI Cervical Dr. Castillo notes cervical spondylosis Varying degree of spinal canal stenosis Most notable at C4-C5 where moderate spinal canal stenosis is noted Varying degree of foraminal stenosis throughout cervical spine Severe foraminal stenosis at C3-C4 Dr. Castillo notes patient reporting injections not as effective Dr. Castillo recommends patient proceed with spine surgery evaluation documented in this encounter [facility] 11-27-2021 History of Present illness Narrative Radiology Service Progress Note PATIENT NAME: Margy Corral DATE OF SERVICE: November 27, 2021 TIME: 3:12 PM PATIENT IDENTITY VERIFICATION COMPLETED USING TWO (2) IDENTIFIERS: Name and Date of confirmed by patient verbally. FALL SCREENING: Has the patient had 2 falls in the last year or 1 fall with injury or currently using an Ambulatory Assistive Device (Walker, Cane, Wheelchair, Crutches, etc.)? No PATIENT GENDER DATA: Male PATIENT RELEVANT IMPLANT DATA REVIEWED: Not Applicable RADIOLOGY DEPARTMENT: MR; Exam(s) Completed: Spine: Cervical spine PERIPHERAL IV DATA: Not applicable SIGNED BY: [facility] November 27, 2021 3:12 PM documented in this encounter [facility] 10-28-2021 Miscellaneous Notes Patient's insurance denying MRI of the cervical spine due to lack of conservative treatment Appeal sent via fax at this time to [facility] Appeals at [phone] which including patient's signed consent form documented in this encounter [facility] 10-27-2021 Miscellaneous Notes Patient cancelled MRI appointment on 10/17/2021. He did not reschedule. documented in this encounter [facility] 10-13-2021 Miscellaneous Notes The following approved medication requests have been transmitted electronically. Signed Prescriptions Disp Refills potassium chloride SR (MICRO-K) 10 mEq CR capsule 360 capsule 3 Sig: Take 1 capsule by mouth four times daily. MADELEINE: No Authorizing Provider: MARIANNE CHE Ma OK to refill as ordered Marianne Che MD Patient phones requesting refills as follows: Pending Prescriptions Disp Refills POTASSIUM CHLORIDE ER 10 MEQ CAPSULE,EXTENDED RELEASE 360 capsule 3 Sig: Take 1 capsule by mouth four times daily. MADELEINE: No MAYRA-08/29/21 Labs-02/15/21 NOV-10/17/21 med filled 10/22/20 Please review and advise. Gill Palencia LPN documented in this encounter [facility] 10-13-2021 Miscellaneous Notes The following approved medication requests have been transmitted electronically. Signed Prescriptions Disp Refills albuterol HFA (VENTOLIN HFA) 90 mcg/actuation inhaler 18 g 1 Sig: Inhale 2 Puffs as instructed every 4 hours as needed. MADELEINE: No Authorizing Provider: MARIANNE CHE Syringe with Needle, Safety 3 mL 22 gauge x 1 syrg 6 Each 3 Si Each every 2 weeks. MADELEINE: No Authorizing Provider: MARIANNE CHE testosterone cypionate (DEPO-TESTOSTERONE) 200 mg/mL injection 10 mL 1 Sig: Inject 1.0 cc every 2 weeks KELSIE Class: C-III MADELEINE: No Authorizing Provider: MARIANNE CHE Ma OK to refill as ordered Marianne Che MD Patient phones requesting refills as follows: Pending Prescriptions Disp Refills ALBUTEROL SULFATE HFA 90 MCG/ACTUATION AEROSOL INHALER 18 g 1 Sig: Inhale 2 Puffs as instructed every 4 hours as needed. MADELEINE: No SYRINGE WITH NEEDLE, SAFETY 3 ML 22 GAUGE X 1 6 Each 3 Si Each every 2 weeks. MADELEINE: No TESTOSTERONE CYPIONATE 200 MG/ML INTRAMUSCULAR OIL 10 mL 1 Sig: Inject 1.0 cc every 2 weeks KELSIE Class: C-III MADELEINE: No MAYRA-08/29/21 Labs-02/15/21 NOV-10/17/21 Please review and advise. Gill Palencia LPN documented in this encounter [facility] 09-22-2021 Miscellaneous Notes The following approved medication requests have been transmitted electronically. Pending Prescriptions Disp Refills OMEPRAZOLE MAGNESIUM 20 MG TABLET,DELAYED RELEASE 30 tablet 11 Sig: Take 1 tablet by mouth daily before breakfast. 1/2 hr before meal. MADELEINE: No TIZANIDINE 4 MG TABLET 30 tablet 5 Sig: Take 1 tablet by mouth at bedtime as needed (muscle spasms). MADELEINE: No Jonny Flores APRN.WENDY Patient phones requesting refills as follows: Pending Prescriptions Disp Refills OMEPRAZOLE MAGNESIUM 20 MG TABLET,DELAYED RELEASE 30 tablet 11 Sig: Take 1 tablet by mouth daily before breakfast. 1/2 hr before meal. MADELEINE: No TIZANIDINE 4 MG TABLET 30 tablet 5 Sig: Take 1 tablet by mouth at bedtime as needed (muscle spasms). MADELEINE: No MAYRA-08/29/21 Labs-02/15/21Apr-03/13/22 Please review and advise. Gill Palencia LPN documented in this encounter [facility] Essential hypertension with goal blood pressure less than 130/80 [facility] Diagnosis COVID-19 Asthma, moderate persistent, well-controlled Unspecified asthma Hypogonadism in male [facility] Diagnosis Spinal stenosis of cervical region Spinal stenosis in cervical region [facility] Diagnosis Spinal stenosis of cervical region- Primary Spinal stenosis in cervical region Cervical radiculopathy Brachial neuritis or radiculitis nos Cervical spondylosis without myelopathy [facility] Diagnosis Spinal stenosis of cervical region- Primary Spinal stenosis in cervical region Cervical spondylosis with myelopathy Cervical radiculopathy Brachial neuritis or radiculitis nos Cervical spondylosis without myelopathy Other chronic pain [facility] Diagnosis Chronic pain syndrome- Primary [facility] Diagnosis Chronic pain of both shoulders- Primary Pain in joint, shoulder region Spinal stenosis of cervical region Spinal stenosis in cervical region Chronic insomnia Insomnia, unspecified Pain in both hands [facility] Diagnosis COVID-19 Asthma, moderate persistent, well-controlled Unspecified asthma [facility] Diagnosis Cervical radiculopathy- Primary Brachial neuritis or radiculitis nos Chronic pain of both shoulders Pain in joint, shoulder region Spinal stenosis of cervical region Spinal stenosis in cervical region [facility] Diagnosis Bilateral shoulder pain, unspecified chronicity [facility]* Diagnosis Asthma, moderate persistent, well-controlled Unspecified asthma [facility]* Diagnosis Spinal stenosis of cervical region Spinal stenosis in cervical region [facility] Diagnosis Screening for colon cancer Special screening for malignant neoplasms, colon [facility] Diagnosis Idiopathic chronic gout without tophus, unspecified site Spinal stenosis of cervical region Spinal stenosis in cervical region COVID-19 Asthma, moderate persistent, well-controlled Unspecified asthma [facility]* Diagnosis Adjustment insomnia Transient disorder of initiating or maintaining sleep Hypogonadism in male [facility] Diagnosis Calcium pyrophosphate deposition disease (CPPD)- Primary Pain in both wrists Pain in joint, forearm Inflammatory arthritis Unspecified inflammatory polyarthropathy [facility] Diagnosis Pain in both wrists Pain in joint, forearm [facility] Diagnosis Dehydration- Primary Diarrhea, unspecified type Influenza A Influenza with other respiratory manifestations Dizziness Dizziness and giddiness Weight loss Loss of weight [facility] Diagnosis Asthma, moderate persistent, well-controlled Unspecified asthma COVID-19 [facility] Diagnosis Hypertension, essential- Primary Unspecified essential hypertension Hypogonadism in male Asthma, moderate persistent, well-controlled Unspecified asthma Cervical spondylosis without myelopathy Gastro-esophageal reflux disease without esophagitis Esophageal reflux Other chondrocalcinosis, unspecified site Idiopathic chronic gout without tophus, unspecified site Hyperlipidemia, mixed Mixed hyperlipidemia Adjustment disorder with mixed anxiety and depressed mood [facility]* Diagnosis De Quervain's disease (radial styloid tenosynovitis)- Primary Radial styloid tenosynovitis Wrist pain, chronic, left Chondrocalcinosis Other disorder of calcium metabolism Chronic pain syndrome [facility]* Diagnosis Essential hypertension with goal blood pressure less than 130/80 [facility] Diagnosis Colitis- Primary Other and unspecified noninfectious gastroenteritis and colitis Essential hypertension with goal blood pressure less than 130/80 Adjustment disorder with mixed anxiety and depressed mood Hypertension, essential Unspecified essential hypertension [facility]* Diagnosis GERD without esophagitis Esophageal reflux Asthma, moderate persistent, well-controlled Unspecified asthma COVID-19 [facility]* Diagnosis Hypogonadism in male [facility] Diagnosis Acute cervical adenitis- Primary Acute lymphadenitis [facility] Diagnosis Idiopathic chronic gout without tophus, unspecified site [facility] Diagnosis Hypertension, essential- Primary Unspecified essential hypertension Screening for colon cancer Special screening for malignant neoplasms, colon Need for vaccination Need for prophylactic vaccination and inoculation against unspecified single disease Adjustment disorder with mixed anxiety and depressed mood Adjustment insomnia Transient disorder of initiating or maintaining sleep Cervical radiculopathy Brachial neuritis or radiculitis nos Hyperlipidemia, mixed Mixed hyperlipidemia Asthma, moderate persistent, well-controlled Unspecified asthma Hypogonadism in male Idiopathic chronic gout without tophus, unspecified site Spinal stenosis of cervical region Spinal stenosis in cervical region [facility] Diagnosis Cervical radiculopathy- Primary Brachial neuritis or radiculitis nos Memory change Memory loss [facility]* Diagnosis Positive fecal occult blood test- Primary Nonspecific abnormal finding in stool contents documented in this encounter [facility] note* Diagnosis Cervical radiculopathy Brachial neuritis or radiculitis nos documented in this encounter [facility] note* Diagnosis Adjustment insomnia Transient disorder of initiating or maintaining sleep Hypogonadism in male Asthma, moderate persistent, well-controlled Unspecified asthma COVID-19 documented in this encounter [facility] for referral (narrative)* Diagnostic Procedure Only (Routine) - Closed Specialty Diagnoses / Procedures Referred By Contac t Referred To Contact XR IMAGING Diagnoses Bilateral shoulder pain, unspecified chronicity Procedures XR SHOULDER GENERAL 3V OR MORE AP/TRUE AP/OTHER RIGHT RADEX SHOULDER COMPLETE MINIMUM 2 VIEWS Brett Haney MD [address] [place] [address] Xr Imaging Referral ID Status Reason Start Date Expiration Date V isits Requested Visits Authorized [id number] Closed Auto-Generate d Referral 02/18/2022 03/20/2023 1 1 * Diagnostic Procedure Only (Routine) - Closed Specialty Diagnoses / [facility] Diagnoses Bilateral shoulder pain, unspecified chronicity Procedures XR SHOULDER GENERAL 3V OR MORE AP/TRUE AP/OTHER LEFT RADEX SHOULDER COMPLETE MINIMUM 2 VIEWS Brett Haney MD [address] [place] [address] Xr Imaging Referral ID Status Reason Start Date Expiration Date V isits Requested Visits Authorized [id number] Closed Auto-Generate d Referral 02/18/2022 03/20/2023 1 1 [facility] for referral (narrative)* Outpatient Procedure (Routine) - Pending Review Specialty Diagnoses / Procedures Referred By Contac t Referred To Contact [facility] Diagnoses Screening for colon cancer Procedures COLONOSCOPY SCREENING COLONOSCOPY FLX DX W/COLLJ SPEC WHEN PFRMD Marianne Che MD [address] [place] [address] [facility] [address] [place] [address] Referral ID Status Reason Start Date Expiration Date Visits Requested Visits Authorized [id number] Pending Review Auto-Generat ed Referral 04/15/2022 04/15/2023 1 1 [facility] for visit Narrative* Diagnostic Procedure Only (Routine) - Closed Specialty Diagnoses / Procedures Referred By Contac t Referred To Contact XR IMAGING Diagnoses Bilateral shoulder pain, unspecified chronicity Procedures XR SHOULDER GENERAL 3V OR MORE AP/TRUE AP/OTHER RIGHT RADEX SHOULDER COMPLETE MINIMUM 2 VIEWS Brett Haney MD [address] [place] [address] Xr Imaging Referral ID Status Reason Start Date Expiration Date V isits Requested Visits Authorized [id number] Closed Auto-Generate d Referral 02/18/2022 03/20/2023 1 1 [facility] for visit Narrative* Diagnostic Procedure Only (Routine) - Closed Specialty Diagnoses / Procedures Referred By Contac t Referred To Contact US IMAGING Diagnoses Cervical radiculopathy Procedures US EXTREMITY MASS/FLUID COLLECTION LEFT Angela Solorio APRN.[employer] DEVELOPER [address] [place] [address] [id number] Referral ID Status Reason Start Date Expiration Date V isits Requested Visits Authorized [id number] Closed Auto-Generate d Referral 02/05/2023 03/06/2024 1 1 [facility] Summary Purpose Family History No Family History Records FoundNo Family History Records FoundNo Family History Records Found Advance Directives No Advanced Directives Records FoundDocuments on File Type Date Recorded Patient Customer Trainer Expl anation Advance Directive(s) 09/12/2021 1:33 PM Advance Directive(s) 09/09/2021 3:35 PM Advance Directive(s) 04/18/2021 10:33 AM Advance Directive(s) 07/19/2020 1:34 PM Advance Directive(s) 07/11/2020 2:54 PM Documents on File Type Date Recorded Patient Customer Trainer Expl anation Advance Directive(s) 09/12/2021 1:33 PM Advance Directive(s) 09/09/2021 3:35 PM Advance Directive(s) 04/18/2021 10:33 AM Advance Directive(s) 07/19/2020 1:34 PM Advance Directive(s) 07/11/2020 2:54 PM Reason for Referral Specialty Diagnoses / Procedures Referred By Contac t Referred To Contact Diagnoses Hypogonadism in male Marianne Che MD [address] [place] [address] Referral ID Status Reason Start Date Expiration Date V isits Requested Visits Authorized [id number] Pending Review 1 1 Specialty Diagnoses / Procedures Referred By Contac t Referred To Contact Diagnoses COVID-19 Asthma, moderate persistent, well-controlled Marianne Che MD [address] [place] [address] Referral ID Status Reason Start Date Expiration Date Visits Re quested Visits Authorized [id number] Closed 1 1 Specialty Diagnoses / Procedures Referred By Contac t Referred To Contact MR IMAGING Diagnoses Spinal stenosis of cervical region Procedures MRI CERVICAL SPINE WO IVCON MRI SPINAL CANAL CERVICAL W/O CONTRAST MATRL Jen Cruz, CIGARETTE EXAMINER.MAGENTO [address]EL[address] [place] [address] Mr Imaging Referral ID Status Reason Start Date Expiration Date V isits Requested Visits Authorized [id number] Closed Auto-Generate d Referral 11/12/2021 01/11/2022 1 1 Specialty Diagnoses / Procedures Referred By Contac t Referred To Contact Diagnoses Spinal stenosis of cervical region Cervical radiculopathy Cervical spondylosis without myelopathy Procedures CONSULT TO SPINE SURGERY OFFICE/OUTPATIENT [facility] MDM 60-74 MINUTES Jen Cruz [employer]IGARETTE EXAMINER.[employer]OPER [address] [place] [address] Referral ID Status Reason Start Date Expiration Date Visits Requested Visits Authorized [id number] Authorized PCP Requested Referral 12/01/2021 12/01/2022 1 1 Specialty Diagnoses / Procedures Referred By Contac t Referred To Contact Spine Pierceton Diagnoses Other chronic pain Procedures CONSULT TO [facility] ([facility]IN) OFFICE/OUTPATIENT [facility] 60-74 MINUTES Rangel Zuñiga MD [address] [place] [address] Referral ID Status Reason Start Date Expiration Date Visits Requested Visits Authorized [id number] Pending Review PCP Requested Referral 12/19/2021 12/19/2022 1 1 Specialty Diagnoses / Procedures Referred By Contac t Referred To Contact Orthopedics Diagnoses Chronic pain of both shoulders Procedures CONSULT TO ORTHOPAEDICS OFFICE/OUTPATIENT [facility] 60-74 MINUTES Marianne Che MD [address] [place] [address] Referral ID Status Reason Start Date Expiration Date Visits Requested Visits Authorized [id number] Authorized PCP Requested Referral 02/06/2022 02/06/2023 1 1 Specialty Diagnoses / Procedures Referred By Contac t Referred To Contact MR IMAGING Diagnoses Chronic pain of both shoulders Procedures MRI SHOULDER WO IVCON RT MRI ANY JT UPPER EXTREMITY W/O CONTRAST Brett Rizzo MD [address] [place] [address] Mr Imaging Referral ID Status Reason Start Date Expiration Date Visits Requested Visits Authorized [id number] Additional Clinical Info Needed Auto-Generat ed Referral 02/19/2022 03/21/2023 1 1 Specialty Diagnoses / Procedures Referred By Contac t Referred To Contact MR IMAGING Diagnoses Pain in both wrists Procedures MRI WRIST WO/W IVCON LT MRI ANY JT UPPER EXTREMITY W/O & W/[place] [address] [place] [address] Mr Imaging Referral ID Status Reason Start Date Expiration Date V isits Requested Visits Authorized [id number] Open Auto-Generate d Referral 05/14/2022 06/13/2023 1 1 Specialty Diagnoses / Procedures Referred By Contac t Referred To Contact XR IMAGING Diagnoses Pain in both wrists Inflammatory arthritis Calcium pyrophosphate deposition disease (CPPD) Procedures XR WRIST 2V AP/LAT BILATERAL RADEX WRIST [address] [place] [address] [place] [address] Xr Imaging Referral ID Status Reason Start Date Expiration Date V isits Requested Visits Authorized [id number] Closed Auto-Generate d Referral 05/14/2022 06/13/2023 1 1 Specialty Diagnoses / Procedures Referred By Contac t Referred To Contact XR IMAGING Diagnoses Pain in both wrists Inflammatory arthritis Calcium pyrophosphate deposition disease (CPPD) Procedures XR HAND GENERAL 3V PA/LAT/OBL BILATERAL RADEX HAND MINIMUM 3 [place] [address] [place] [address] Xr Imaging Referral ID Status Reason Start Date Expiration Date V isits Requested Visits Authorized [id number] Closed Auto-Generate d Referral 05/14/2022 06/13/2023 1 1 Referral ID Status Reason Start Date Expiration Date V isits Requested Visits Authorized [id number] Closed Auto-Generate d Referral 05/14/2022 07/14/2022 1 1 Specialty Diagnoses / Procedures Referred By Contac t Referred To Contact Neurology Diagnoses Memory change Procedures CONSULT TO NEUROLOGY Angela Solorio APRN.[employer]OPER [address] [place] [address] Brandon Franco Jr., MD [address] [place] [address] Referral ID Status Reason Start Date Expiration Date Visits Requested Visits Authorized [id number] Ref Not Required PCP Requested Referral 02/05/2023 02/05/2024 1 1 Specialty Diagnoses / Procedures Referred By Contac t Referred To Contact US IMAGING Diagnoses Cervical radiculopathy Procedures US EXTREMITY MASS/FLUID COLLECTION LEFT Angela Solorio APRN.[employer] [address] [place] [address] [place] [address] Referral ID Status Reason Start Date Expiration Date Visits Requested Visits Authorized [id number] Authorized Auto-Generat ed Referral 02/05/2023 03/06/2024 1 1 Specialty Diagnoses / Procedures Referred By Contac t Referred To Contact General Surgery Diagnoses Positive fecal occult blood test Procedures CONSULT TO GENERAL SURGERY OFFICE/OUTPATIENT NEW HIGH MDM 60-74 MINUTES Jonny Flores APRN.[employer] DEVELOPER [address] [place] [address] Referral ID Status Reason Start Date Expiration Date Visits Requested Visits Authorized [id number] Authorized PCP Requested Referral 02/09/2023 02/09/2024 1 1 Additional Source Comments (unrecognized sect ion and content) No Status Records FoundNo Status Records FoundNo Status Records Found INFORMATION SOURCE (unrecogn ized section and content) DATE CREATED AUTHOR AUTHOR'S ORGANIZ ATION 02/14/2023 [facility] DATE CREATED AUTHOR AUTHOR'S ORGANIZ ATION 06/05/2023 [facility] Source Comments (unrecognize d section and content) In the event this informatio n is protected by the Federal Confidentiality of Alcohol and Drug Abuse Patient Records regulations: The Federal rules restrict any use of the information to criminally investigate or prosecute any alcohol or drug abuse patient.[facility] the event this information is protected by the Federal Confidentiality of Alcohol and Drug Abuse Patient Records regulations: The Federal rules restrict any use of the information to criminally investigate or prosecute any alcohol or drug abuse patient.[facility] HospitalIn the event this information is protected by the Federal Confidentiality of Alcohol and Drug Abuse Patient Records regulations: The Federal rules restrict any use of the information to criminally investigate or prosecute any alcohol or drug abuse patient.[facility] HospitalIn the event this information is protected by the Federal Confidentiality of Alcohol and Drug Abuse Patient Records regulations: The Federal rules restrict any use of the information to criminally investigate or prosecute any alcohol or drug abuse patient.[facility] HospitalIn the event this information is protected by the Federal Confidentiality of Alcohol and Drug Abuse Patient Records regulations: The Federal rules restrict any use of the information to criminally investigate or prosecute any alcohol or drug abuse patient.[facility] HospitalIn the event this information is protected by the Federal Confidentiality of Alcohol and Drug Abuse Patient Records regulations: The Federal rules restrict any use of the information to criminally investigate or prosecute any alcohol or drug abuse patient.[facility] HospitalIn the event this information is protected by the Federal Confidentiality of Alcohol and Drug Abuse Patient Records regulations: The Federal rules restrict any use of the information to criminally investigate or prosecute any alcohol or drug abuse patient.[facility] HospitalIn the event this information is protected by the Federal Confidentiality of Alcohol and Drug Abuse Patient Records regulations: The Federal rules restrict any use of the information to criminally investigate or prosecute any alcohol or drug abuse patient.[facility] HospitalIn the event this information is protected by the Federal Confidentiality of Alcohol and Drug Abuse Patient Records regulations: The Federal rules restrict any use of the information to criminally investigate or prosecute any alcohol or drug abuse patient.[facility] HospitalIn the event this information is protected by the Federal Confidentiality of Alcohol and Drug Abuse Patient Records regulations: The Federal rules restrict any use of the information to criminally investigate or prosecute any alcohol or drug abuse patient.[facility] HospitalIn the event this information is protected by the Federal Confidentiality of Alcohol and Drug Abuse Patient Records regulations: The Federal rules restrict any use of the information to criminally investigate or prosecute any alcohol or drug abuse patient.[facility] HospitalIn the event this information is protected by the Federal Confidentiality of Alcohol and Drug Abuse Patient Records regulations: The Federal rules restrict any use of the information to criminally investigate or prosecute any alcohol or drug abuse patient.[facility] HospitalIn the event this information is protected by the Federal Confidentiality of Alcohol and Drug Abuse Patient Records regulations: The Federal rules restrict any use of the information to criminally investigate or prosecute any alcohol or drug abuse patient.[facility] HospitalIn the event this information is protected by the Federal Confidentiality of Alcohol and Drug Abuse Patient Records regulations: The Federal rules restrict any use of the information to criminally investigate or prosecute any alcohol or drug abuse patient.[facility] HospitalIn the event this information is protected by the Federal Confidentiality of Alcohol and Drug Abuse Patient Records regulations: The Federal rules restrict any use of the information to criminally investigate or prosecute any alcohol or drug abuse patient.[facility] HospitalIn the event this information is protected by the Federal Confidentiality of Alcohol and Drug Abuse Patient Records regulations: The Federal rules restrict any use of the information to criminally investigate or prosecute any alcohol or drug abuse patient.[facility] HospitalIn the event this information is protected by the Federal Confidentiality of Alcohol and Drug Abuse Patient Records regulations: The Federal rules restrict any use of the information to criminally investigate or prosecute any alcohol or drug abuse patient.[facility] HospitalIn the event this information is protected by the Federal Confidentiality of Alcohol and Drug Abuse Patient Records regulations: The Federal rules restrict any use of the information to criminally investigate or prosecute any alcohol or drug abuse patient.[facility] HospitalIn the event this information is protected by the Federal Confidentiality of Alcohol and Drug Abuse Patient Records regulations: The Federal rules restrict any use of the information to criminally investigate or prosecute any alcohol or drug abuse patient.[facility] HospitalIn the event this information is protected by the Federal Confidentiality of Alcohol and Drug Abuse Patient Records regulations: The Federal rules restrict any use of the information to criminally investigate or prosecute any alcohol or drug abuse patient.[facility] HospitalIn the event this information is protected by the Federal Confidentiality of Alcohol and Drug Abuse Patient Records regulations: The Federal rules restrict any use of the information to criminally investigate or prosecute any alcohol or drug abuse patient.[facility] HospitalIn the event this information is protected by the Federal Confidentiality of Alcohol and Drug Abuse Patient Records regulations: The Federal rules restrict any use of the information to criminally investigate or prosecute any alcohol or drug abuse patient.[facility] HospitalIn the event this information is protected by the Federal Confidentiality of Alcohol and Drug Abuse Patient Records regulations: The Federal rules restrict any use of the information to criminally investigate or prosecute any alcohol or drug abuse patient.[facility] HospitalIn the event this information is protected by the Federal Confidentiality of Alcohol and Drug Abuse Patient Records regulations: The Federal rules restrict any use of the information to criminally investigate or prosecute any alcohol or drug abuse patient.[facility] HospitalIn the event this information is protected by the Federal Confidentiality of Alcohol and Drug Abuse Patient Records regulations: The Federal rules restrict any use of the information to criminally investigate or prosecute any alcohol or drug abuse patient.[facility] HospitalIn the event this information is protected by the Federal Confidentiality of Alcohol and Drug Abuse Patient Records regulations: The Federal rules restrict any use of the information to criminally investigate or prosecute any alcohol or drug abuse patient.[facility] HospitalIn the event this information is protected by the Federal Confidentiality of Alcohol and Drug Abuse Patient Records regulations: The Federal rules restrict any use of the information to criminally investigate or prosecute any alcohol or drug abuse patient.[facility] HospitalIn the event this information is protected by the Federal Confidentiality of Alcohol and Drug Abuse Patient Records regulations: The Federal rules restrict any use of the information to criminally investigate or prosecute any alcohol or drug abuse patient.[facility] HospitalIn the event this information is protected by the Federal Confidentiality of Alcohol and Drug Abuse Patient Records regulations: The Federal rules restrict any use of the information to criminally investigate or prosecute any alcohol or drug abuse patient.[facility] HospitalIn the event this information is protected by the Federal Confidentiality of Alcohol and Drug Abuse Patient Records regulations: The Federal rules restrict any use of the information to criminally investigate or prosecute any alcohol or drug abuse patient.[facility] HospitalIn the event this information is protected by the Federal Confidentiality of Alcohol and Drug Abuse Patient Records regulations: The Federal rules restrict any use of the information to criminally investigate or prosecute any alcohol or drug abuse patient.[facility] HospitalIn the event this information is protected by the Federal Confidentiality of Alcohol and Drug Abuse Patient Records regulations: The Federal rules restrict any use of the information to criminally investigate or prosecute any alcohol or drug abuse patient.[facility] HospitalIn the event this information is protected by the Federal Confidentiality of Alcohol and Drug Abuse Patient Records regulations: The Federal rules restrict any use of the information to criminally investigate or prosecute any alcohol or drug abuse patient.[facility] HospitalIn the event this information is protected by the Federal Confidentiality of Alcohol and Drug Abuse Patient Records regulations: The Federal rules restrict any use of the information to criminally investigate or prosecute any alcohol or drug abuse patient.[facility] HospitalIn the event this information is protected by the Federal Confidentiality of Alcohol and Drug Abuse Patient Records regulations: The Federal rules restrict any use of the information to criminally investigate or prosecute any alcohol or drug abuse patient.[facility] HospitalIn the event this information is protected by the Federal Confidentiality of Alcohol and Drug Abuse Patient Records regulations: The Federal rules restrict any use of the information to criminally investigate or prosecute any alcohol or drug abuse patient.[facility] HospitalIn the event this information is protected by the Federal Confidentiality of Alcohol and Drug Abuse Patient Records regulations: The Federal rules restrict any use of the information to criminally investigate or prosecute any alcohol or drug abuse patient.[facility] HospitalIn the event this information is protected by the Federal Confidentiality of Alcohol and Drug Abuse Patient Records regulations: The Federal rules restrict any use of the information to criminally investigate or prosecute any alcohol or drug abuse patient.[facility] HospitalIn the event this information is protected by the Federal Confidentiality of Alcohol and Drug Abuse Patient Records regulations: The Federal rules restrict any use of the information to criminally investigate or prosecute any alcohol or drug abuse patient.[facility] HospitalIn the event this information is protected by the Federal Confidentiality of Alcohol and Drug Abuse Patient Records regulations: The Federal rules restrict any use of the information to criminally investigate or prosecute any alcohol or drug abuse patient.[facility] HospitalIn the event this information is protected by the Federal Confidentiality of Alcohol and Drug Abuse Patient Records regulations: The Federal rules restrict any use of the information to criminally investigate or prosecute any alcohol or drug abuse patient.[facility] HospitalIn the event this information is protected by the Federal Confidentiality of Alcohol and Drug Abuse Patient Records regulations: The Federal rules restrict any use of the information to criminally investigate or prosecute any alcohol or drug abuse patient.[facility] HospitalIn the event this information is protected by the Federal Confidentiality of Alcohol and Drug Abuse Patient Records regulations: The Federal rules restrict any use of the information to criminally investigate or prosecute any alcohol or drug abuse patient.[facility] HospitalIn the event this information is protected by the Federal Confidentiality of Alcohol and Drug Abuse Patient Records regulations: The Federal rules restrict any use of the information to criminally investigate or prosecute any alcohol or drug abuse patient.[facility] HospitalIn the event this information is protected by the Federal Confidentiality of Alcohol and Drug Abuse Patient Records regulations: The Federal rules restrict any use of the information to criminally investigate or prosecute any alcohol or drug abuse patient.[facility] HospitalIn the event this information is protected by the Federal Confidentiality of Alcohol and Drug Abuse Patient Records regulations: The Federal rules restrict any use of the information to criminally investigate or prosecute any alcohol or drug abuse patient.[facility] HospitalIn the event this information is protected by the Federal Confidentiality of Alcohol and Drug Abuse Patient Records regulations: The Federal rules restrict any use of the information to criminally investigate or prosecute any alcohol or drug abuse patient.[facility] HospitalIn the event this information is protected by the Federal Confidentiality of Alcohol and Drug Abuse Patient Records regulations: The Federal rules restrict any use of the information to criminally investigate or prosecute any alcohol or drug abuse patient.[facility] HospitalIn the event this information is protected by the Federal Confidentiality of Alcohol and Drug Abuse Patient Records regulations: The Federal rules restrict any use of the information to criminally investigate or prosecute any alcohol or drug abuse patient.[facility] HospitalIn the event this information is protected by the Federal Confidentiality of Alcohol and Drug Abuse Patient Records regulations: The Federal rules restrict any use of the information to criminally investigate or prosecute any alcohol or drug abuse patient.[facility] HospitalIn the event this information is protected by the Federal Confidentiality of Alcohol and Drug Abuse Patient Records regulations: The Federal rules restrict any use of the information to criminally investigate or prosecute any alcohol or drug abuse patient.[facility] HospitalIn the event this information is protected by the Federal Confidentiality of Alcohol and Drug Abuse Patient Records regulations: The Federal rules restrict any use of the information to criminally investigate or prosecute any alcohol or drug abuse patient.[facility] HospitalIn the event this information is protected by the Federal Confidentiality of Alcohol and Drug Abuse Patient Records regulations: The Federal rules restrict any use of the information to criminally investigate or prosecute any alcohol or drug abuse patient.[facility] HospitalIn the event this information is protected by the Federal Confidentiality of Alcohol and Drug Abuse Patient Records regulations: The Federal rules restrict any use of the information to criminally investigate or prosecute any alcohol or drug abuse patient.[facility] Reason for Visit (unrecogniz ed section and content) Reason Onset Date Comments Refill Request 10/13/2021 Reason Onset Date Comments Refill Request 10/13/2021 Reason Comments Benefits Denied MRI Cervical Spine Specialty Diagnoses / Procedures Referred By Contac t Referred To Contact MR IMAGING Diagnoses Spinal stenosis of cervical region Procedures MRI CERVICAL SPINE WO IVCON MRI SPINAL CANAL CERVICAL W/O CONTRAST MATRL Jen Cruz, CIGARETTE EXAMINER.[employer] DEVELOPER [address] [place] [address] Mr Imaging Referral ID Status Reason Start Date Expiration Date V isits Requested Visits Authorized [id number] Closed Auto-Generate d Referral 11/12/2021 01/11/2022 1 1 Reason Comments Results MRI Cervical Spine Reason Comments Insurance Authorization [employer] Reason Comments New Patient Specialty Diagnoses / Procedures Referred By Contac t Referred To Contact Diagnoses Spinal stenosis of cervical region Cervical radiculopathy Cervical spondylosis without myelopathy Procedures CONSULT TO SPINE SURGERY OFFICE/OUTPATIENT NEW HIGH MDM 60-74 MINUTES Jen Cruz, CIGARETTE EXAMINER.[employer] DEVELOPER [address] [place] [address] Referral ID Status Reason Start Date Expiration Date V isits Requested Visits Authorized [id number] Closed PCP Requested Referral 12/01/2021 12/01/2022 1 1 Reason Comments Appointment Reason Comments Chronic Pain Neck and mid back pa in Specialty Diagnoses / Procedures Referred By Contac t Referred To Contact Spine Pierceton Diagnoses Other chronic pain Procedures CONSULT TO [facility] (CHRONIC PAIN) OFFICE/OUTPATIENT [facility] 60-74 MINUTES Rangel Zuñiga MD [address] [place] [address] Referral ID Status Reason Start Date Expiration Date Visits Requested Visits Authorized [id number] Pending Review PCP Requested Referral 12/19/2021 12/19/2022 1 1 Reason Comments F/U 6 Month Reason Onset Date Comments Refill Request 02/12/2022 Reason Comments Established Patient Pain Specialty Diagnoses / Procedures Referred By Contac t Referred To Contact Orthopedics Diagnoses Chronic pain of both shoulders Procedures CONSULT TO ORTHOPAEDICS OFFICE/OUTPATIENT [facility] 60-74 MINUTES Marianne Che MD [address] [place] [id number] Referral ID Status Reason Start Date Expiration Date V isits Requested Visits Authorized [id number] Closed PCP Requested Referral 02/06/2022 02/06/2023 1 1 Reason Comments Results Specialty Diagnoses / Procedures Referred By Contac t Referred To Contact MR IMAGING Diagnoses Chronic pain of both shoulders Procedures MRI SHOULDER WO IVCON RT MRI ANY JT UPPER EXTREMITY W/O CONTRAST Brett Rizzo MD [address] [place] [address] Mr Imaging Referral ID Status Reason Start Date Expiration Date V isits Requested Visits Authorized [id number] Closed Auto-Generate d Referral 02/19/2022 04/21/2022 1 1 Reason Onset Date Comments Refill Request 03/16/2022 Reason Onset Date Comments Refill Request 03/23/2022 Reason Onset Date Comments Refill Request 04/20/2022 Reason Comments New Patient Joint Pain Specialty Diagnoses / Procedures Referred By Contac t Referred To Contact MR IMAGING Diagnoses Pain in both wrists Procedures MRI WRIST WO/W IVCON LT MRI ANY JT UPPER EXTREMITY W/O & W/[place] [address] [place] [id number] Mr Imaging Referral ID Status Reason Start Date Expiration Date V isits Requested Visits Authorized [id number] Closed Auto-Generate d Referral 05/14/2022 07/14/2022 1 1 Reason Comments Cough Pt reported [facility] ER v isit 06/01/2022, Dx Influenza A, diarrhea, dizziness. Reason Onset Date Comments Refill Request 06/12/2022 Reason Onset Date Comments Refill Request 08/10/2022 Reason Comments Follow Up Reason Comments Joint Pain Reason Onset Date Comments Transition Of Care 09/14/2022 [facility] D/C Reason Onset Date Comments Refill Request 09/14/2022 Reason Comments Transition Of Care Reason Onset Date Comments Refill Request 10/09/2022 Reason Onset Date Comments Refill Request 12/07/2022 Reason Comments ER F/U Reason Onset Date Comments Refill Request 01/07/2023 Reason Comments Follow Up Lump on neck Reason Comments Results Reason Onset Date Comments Refill Request 04/06/2023 Reason Comments Insurance Authorization Depo Testosteron e Care Teams (unrecognized sec tion and content) Assistant Passenger Locomotive Engineer Relationship Specialty Start Date End Date Marianne Che MD [address] [place] [address] PCP - General Family Practice 07/10/17 Assistant Passenger Locomotive Engineer Relationship Specialty Start Date End Date Marianne Che MD [address] [place] [address] PCP - General Family Practice 07/10/17 Assistant Passenger Locomotive Engineer Relationship Specialty Start Date End Date Marianne Che MD [address] [place] [address] PCP - General Family Practice 07/10/17 Assistant Passenger Locomotive Engineer Relationship Specialty Start Date End Date Marianne Che MD [address] [place] [address] PCP - General Family Practice 07/10/17 Assistant Passenger Locomotive Engineer Relationship Specialty Start Date End Date Marianne Che MD [address] [facility] [place] [address] PCP - General Family Practice 07/10/17 Assistant Passenger Locomotive Engineer Relationship Specialty Start Date End Date Marianne Che MD [address] [facility] [place] [address] PCP - General Family Practice 07/10/17 Assistant Passenger Locomotive Engineer Relationship Specialty Start Date End Date Marianne Che MD [address] [facility] [place] [address] PCP - General Family Practice 07/10/17 Assistant Passenger Locomotive Engineer Relationship Specialty Start Date End Date Marianne Che MD [address] [facility] [place] [address] PCP - General Family Practice 07/10/17 Assistant Passenger Locomotive Engineer Relationship Specialty Start Date End Date Marianne Che MD [address] [facility] [place] [address] PCP - General Family Practice 07/10/17 Assistant Passenger Locomotive Engineer Relationship Specialty Start Date End Date Marianne Che MD [address] [facility] [place] [address] PCP - General Family Practice 07/10/17 Assistant Passenger Locomotive Engineer Relationship Specialty Start Date End Date Marianne Che MD [address] [facility] [place] [address] PCP - General Family Practice 07/10/17 Assistant Passenger Locomotive Engineer Relationship Specialty Start Date End Date Marianne Che MD [address] [facility] [place] [address] PCP - General Family Practice 07/10/17 Assistant Passenger Locomotive Engineer Relationship Specialty Start Date End Date Marianne Che MD [address] [facility] [place] [address] PCP - General Family Practice 07/10/17 Assistant Passenger Locomotive Engineer Relationship Specialty Start Date End Date Marianne Che MD [address] [facility] [place] [address] PCP - General Family Practice 07/10/17 Assistant Passenger Locomotive Engineer Relationship Specialty Start Date End Date Marianne Che MD [address] [facility] [place] [address] PCP - General Family Medicine 07/10/17 Assistant Passenger Locomotive Engineer Relationship Specialty Start Date End Date Marianne Che MD [address] [facility] [place] [address] PCP - General Family Medicine 07/10/17 Assistant Passenger Locomotive Engineer Relationship Specialty Start Date End Date Marianne Che MD [address] [facility] [place] [address] PCP - General Family Medicine 07/10/17 Assistant Passenger Locomotive Engineer Relationship Specialty Start Date End Date Marianne Che MD [address] [facility] [place] [address] PCP - General Family Medicine 07/10/17 Assistant Passenger Locomotive Engineer Relationship Specialty Start Date End Date Marianne Che MD [address] [facility] [place] [address] PCP - General Family Medicine 07/10/17 Assistant Passenger Locomotive Engineer Relationship Specialty Start Date End Date Marianne Che MD [address] [facility] [place] [address] PCP - General Family Medicine 07/10/17 Assistant Passenger Locomotive Engineer Relationship Specialty Start Date End Date Marianne Che MD [address] [facility] [place] [address] PCP - General Family Medicine 07/10/17 Assistant Passenger Locomotive Engineer Relationship Specialty Start Date End Date Marianne Che MD [address] [facility] [place] [address] PCP - General Family Medicine 07/10/17 Assistant Passenger Locomotive Engineer Relationship Specialty Start Date End Date Marianne Che MD [address] [facility] [place] [address] PCP - General Family Medicine 07/10/17 Assistant Passenger Locomotive Engineer Relationship Specialty Start Date End Date Marianne Che MD [address] [facility] [place] [address] PCP - General Family Medicine 07/10/17 Assistant Passenger Locomotive Engineer Relationship Specialty Start Date End Date Marianne Che MD [address] [facility] [place] [address] PCP - General Family Medicine 07/10/17 Assistant Passenger Locomotive Engineer Relationship Specialty Start Date End Date Marianne Che MD [address] [facility] [place] [address] PCP - General Family Medicine 07/10/17 Assistant Passenger Locomotive Engineer Relationship Specialty Start Date End Date Marianne Che MD [address] [facility] [place] [address] PCP - General Family Medicine 07/10/17 Assistant Passenger Locomotive Engineer Relationship Specialty Start Date End Date Marianne Che MD [address] [facility] [place] [address] PCP - General Family Medicine 07/10/17 Assistant Passenger Locomotive Engineer Relationship Specialty Start Date End Date Marianne Che MD [address] [facility] [place] [address] PCP - General Family Medicine 07/10/17 Assistant Passenger Locomotive Engineer Relationship Specialty Start Date End Date Marianne Che MD [address] [facility] [place] [address] PCP - General Family Medicine 07/10/17 Assistant Passenger Locomotive Engineer Relationship Specialty Start Date End Date Marianne Che MD [address] [facility] [place] [address] PCP - General Family Medicine 07/10/17 Assistant Passenger Locomotive Engineer Relationship Specialty Start Date End Date Marianne Che MD [address] [facility] [place] [address] PCP - General Family Medicine 07/10/17 Assistant Passenger Locomotive Engineer Relationship Specialty Start Date End Date Marianne Che MD [address] [facility] [place] [address] PCP - General Family Medicine 07/10/17 Assistant Passenger Locomotive Engineer Relationship Specialty Start Date End Date Marianne Che MD [address] [facility] [place] [address] PCP - General Family Medicine 07/10/17 Assistant Passenger Locomotive Engineer Relationship Specialty Start Date End Date Marianne Che MD [address] [facility] [place] [address] PCP - General Family Medicine 07/10/17 Assistant Passenger Locomotive Engineer Relationship Specialty Start Date End Date Marianne Che MD [address] [facility] [place] [address] PCP - General Family Medicine 07/10/17 Assistant Passenger Locomotive Engineer Relationship Specialty Start Date End Date Marianne Che MD [address] [facility] [place] [address] PCP - General Family Medicine 07/10/17 Assistant Passenger Locomotive Engineer Relationship Specialty Start Date End Date Marianne Che MD [address] [facility] [place] [address] PCP - General Family Medicine 07/10/17 Assistant Passenger Locomotive Engineer Relationship Specialty Start Date End Date Marianne Che MD [address] [place] [address] PCP - General Family Medicine 07/10/17 Assistant Passenger Locomotive Engineer Relationship Specialty Start Date End Date Marianne Che MD [address] [place], [place] [address] PCP - General [facility] 07/10/17 Assistant Passenger Locomotive Engineer Relationship Specialty Start Date End Date Marianne Che MD [address] [place], [place] [id number] PCP - General Family Medicine 07/10/17 FOR RECORDS PERTAINING TO PATIENTS WHO ARE OR HAVE BEEN ENROLLED IN A CHEMICAL DEPENDENCY/SUBSTANCEABUSE PROGRAM, SOME INFORMATION MAY BE OMITTED. This clinical summary was aggregated from multiple sources. Caution should be exercised in using it in the provision of clinical care. This summary normalizes information from multiple sources, and as a consequence, information in this document may materially change the coding, format and clinical context of patient data. In addition, data may be omitted in some cases. CLINICAL DECISIONS SHOULD BE BASED ON THE PRIMARY CLINICAL RECORDS. [employer] provides no warranty or guarantee of the accuracy or completeness of information in this document.
[2023-06-23 17:27] LABS: Erythrocyte Sedimentation Rate 1 mm/hr (0-20)
[2023-06-23 17:35] LABS: Anion Gap 5 (5-15); BUN 14 mg/dL (7-18); BUN/Creat Ratio 13.2 RATIO (10-20); CRP < 2.90 mg/L (0.0-3.0); Calcium,Total 9.3 mg/dL (8.5-10.1); Chloride 105 mmol/L (98-107); Creatinine, Serum 1.06 mg/dL (0.70-1.30); EST Glomerular Filtration Rate 75 mL/min (>60); Est Glom Filt Rate - Afr Amer 91 mL/min (>60); Estimated Creatinine Clearance 73.54 ml/min; Glucose 91 mg/dL (74-106); Potassium 4.1 mmol/L (3.5-5.1); Sodium Level 140 mmol/L (136-145)
[2023-06-23 20:22] VITALS: PULSE 74; RESP 18; O2SAT 99
== END 2023-06-23 20:23 | disposition home or self-care (01) ==
PROVIDERS: Emergency Provider Emergency Medicine; PCP Family Medicine; Visit Provider Emergency Medicine
DX: M62.838 Other muscle spasm (principal); Z87.891 Personal history of nicotine dependence; E78.5 Hyperlipidemia, unspecified; I10 Essential (primary) hypertension; Z79.899 Other long term (current) drug therapy; K21.9 Gastro-esophageal reflux disease without esophagitis; M10.9 Gout, unspecified; F41.9 Anxiety disorder, unspecified; F32.A Depression, unspecified; Z90.49 Acquired absence of other specified parts of digestive tract
CPT/HCPCS: 70491; 80048; 85025; 85652; 86140; 99283; Q9967; A4216; J2405